=== PATIENT | male | born 1965 | race Caucasian/White ===

== ENCOUNTER 2016-12-02 12:00 | Emergency (ER) | payer BC ==
[2016-12-02 13:12] VITALS: BP 136/81
--- NOTE | 2016-12-02 13:39 | UC ---
Cardiac HPI - HPI Summary HPI Summary: 51 yo male with right sided CP x 4 days pain there all the time but worsens with deep breath and certain movements no sob no f/c has had this in the past (more severe) and has been diagnosed with pleuresy has been admitted twice with it has bee worked up for gallbladder disease and kidney stones - History of Current Complaint Chief Complaint: UCChestPain Stated Complaint: RIB PAIN Time Seen by Provider: 12/02/16 13:18 Hx Obtained From: Patient Onset/Duration: Gradual Onset, Lasting Days Timing: Constant Initial Severity: Moderate Current Severity: Moderate Pain Intensity: 5 Chest Pain Location: Diffuse, Right Anterior Character: Sharp/Stabbing Aggravating: Position, Deep Breaths Alleviating: Nothing Associated Signs & Symptoms: Positive: Chest Pain. Negative: Vision Changes, Anxiety, Recent Stress, Headaches, Numbness, Tingling, Weakness, Dizziness, SOB , Swelling, Syncope, Fever, Diaphoresis, Nausea/Vomiting, Palpitations, Cough, Hemoptysis, Back Pain, Abdominal Pain, Calf Pain/Swelling Related History: Similar Episode/Dx as - pleuresy - Allergy/Home Medications Allergies/Adverse Reactions: Allergies Allergy/AdvReac Type Severity Reaction Status Date / Time Azithromycin [From Zithromax] Allergy Intermediate Rash Verified 12/02/16 13:06 Penicillins Allergy Hives Verified 12/02/16 13:06 Sulfamethoxazole Allergy Rash Verified 12/02/16 13:06 w/Trimethoprim [From Bactrim] PMH/Surg Hx/FS Hx/Imm Hx Previously Healthy: Yes - essentially tremor Endocrine History Of: Denies: Diabetes, Thyroid Disease, Hyperthyroidism, Hypothyroidism, Dyslipidemia Cardiovascular History Of: Denies: Cardiac Disorders, Hypertension, Pacemaker/ICD, Myocardial Infarction , Congestive Heart Failure, Atrial Fibrillation, Deep Vein Thrombosis, Bleeding Disorders GI/ History Of: Reports: Gastroesophageal Reflux, Ulcer Denies: Gastrointestinal Bleed, Gall Bladder Disease, Kidney Stones, Diverticulitis, Renal Disease, Urosepsis Neurological History Of: Denies: TIA, CVA, Dementia, Seizures, Migraine Psychological History Of: Reports: Anxiety Denies: Depression, Bipolar Disorder, Schizophrenia, Post Traumatic Stress Disorder Cancer History Of: Denies: Lung Cancer, Colorectal Cancer, Breast Cancer, Prostate Cancer, Cervical Cancer - Surgical History Surgical History: None - Family History Known Family History: Negative: Cardiac Disease, Hypertension, Respiratory Disease - Social History Alcohol Use: Rare Substance Use Type: None Smoking Status (MU): Never Smoked Tobacco - Immunization History Most Recent Influenza Vaccination: Not the Season Review of Systems Constitutional: Negative Skin: Negative Eyes: Negative ENT: Negative Respiratory: Negative Cardiovascular: Chest Pain Gastrointestinal: Negative Genitourinary: Negative Motor: Negative Neurovascular: Negative Musculoskeletal: Negative Neurological: Negative Psychological: Anxious All Other Systems Reviewed And Are Negative: Yes Physical Exam Triage Information Reviewed: Yes Appearance: Well-Appearing, No Pain Distress, Well-Nourished Vital Signs: Initial Vital Signs Temp 99.6 F 12/02/16 13:03 Pulse 104 12/02/16 13:03 Resp 16 12/02/16 13:03 BP 136/81 12/02/16 13:03 Pulse Ox 100 12/02/16 13:03 Vital Signs Reviewed: Yes Eyes: Positive: Conjunctiva Clear ENT: Positive: Hearing grossly normal, Pharynx normal. Negative: Nasal congestion, Nasal drainage, Tonsillar exudate, Trismus, Muffled/hoarse voice Neck: Positive: Supple, Nontender, No Lymphadenopathy Respiratory: Positive: Chest non-tender, Lungs clear, Normal breath sounds, No respiratory distress, No accessory muscle use Cardiovascular: Positive: RRR, No Murmur. Negative: Tachycardia - pulse in 80s during my exam, Bradycardia Abdomen Description: Positive: Nontender, No Organomegaly, Soft. Negative: CVA Tenderness (R), CVA Tenderness (L), Distended, Guarding Bowel Sounds: Positive: Present Musculoskeletal: Positive: ROM Intact, No Edema Neurological Exam: Other - tremors Neurological: Positive: Muscle Tone Normal Psychological Exam: Normal Skin Exam: Normal Diagnostics - EKG Cardiac Rate: NL Cardiac Rhythm: Sinus: Normal Ectopy: None ST Segment: Normal - Clinical Impression Provider Diagnoses: pleursy Discharge - Discharge Plan Condition: Stable Disposition: HOME Prescriptions: Prednisone 60 mg PO DAILY #6 tab Patient Education Materials: Pleurisy (ED) Referrals: Bk Gonsalez MD [Primary Care Provider] - (as planned) Additional Instructions: while on prednisone take tylenol for pain
--- NOTE | 2016-12-02 14:06 | RAD ---
INDICATION: Right-sided chest pain COMPARISON: March 04, 2015 TECHNIQUE: PA and lateral dual-energy views were obtained. FINDINGS: Bones/Soft Tissues: There are no acute bony findings. Cardiomediastinal: The cardiomediastinal silhouette is normal. Lungs: There are no infiltrates. There is minimal right basilar atelectasis. There is a small granuloma in the left midlung field, unchanged. Pleura: There are no pleural effusions. Other: None IMPRESSION: NO ACTIVE DISEASE.
[2016-12-02] MEDS ORDERED: predniSONE TAB* 20 MG PO ONE (14:12)
[2016-12-02 19:24] LABS: Hematocrit 46 % (42-52); Hemoglobin 14.9 g/dl (14.0-18.0); Mean Corpuscular HGB Conc 33 g/dl (31-36); Mean Corpuscular Hemoglobin 30 pg (27-31); Mean Corpuscular Volume 91 fL (80-94); Mean Platelet Volume 9 um3 (7.4-10.4); Red Blood Count 5.04 10^6/ul (4.0-5.4); Red Cell Distribution Width 13 % (10.5-15)
[2016-12-02 20:12] LABS: Erythrocyte Sed Rate 7 mm/Hr (0-20)
== END 2016-12-02 14:37 | disposition home or self-care (01) ==
LOC: UCCORT 12:00
DX: R09.1 Pleurisy (principal); Z88.1 Allergy status to other antibiotic agents; Z88.0 Allergy status to penicillin; Z88.2 Allergy status to sulfonamides
CPT/HCPCS: 36415; 71020; 85025; 85652; 86038; 93005; 99212; G0463; J7512

== ENCOUNTER 2017-10-24 08:35 | Emergency (ER) | payer BC ==
--- NOTE | 2017-10-24 08:43 | UC ---
Upper Extremity HPI - HPI Summary HPI Summary: 52 year old male presents with right arm pain secondary to forced extension. - History of Current Complaint Stated Complaint: RIGHT ARM INJURY Time Seen by Provider: 10/24/17 08:43 Hx Obtained From: Patient Onset/Duration: Sudden Onset Severity Initially: Moderate Severity Currently: Moderate Pain Scale Used: 0-10 Numeric - 5 Character: Sharp Aggravating Factor(s): Movement, Lifting, Flexion, Extension, Abduction, Adduction Alleviating Factor(s): Rest - Allergies/Home Medications Allergies/Adverse Reactions: Allergies Allergy/AdvReac Type Severity Reaction Status Date / Time Azithromycin [From Zithromax] Allergy Intermediate Rash Verified 10/24/17 09:04 Penicillins Allergy Hives Verified 10/24/17 09:04 Sulfamethoxazole Allergy Rash Verified 10/24/17 09:04 w/Trimethoprim [From Bactrim] Home Medications: Home Medications Ibuprofen [Advil] 400 mg PO ONCE PRN 10/24/17 [History Confirmed 10/24/17] Naproxen [Naproxen EC 500 MG TAB] 500 mg PO BID 10/24/17 [History Confirmed 06/03] PMH/Surg Hx/FS Hx/Imm Hx Previously Healthy: Yes - Surgical History Surgical History: None - Family History Known Family History: Positive: None, Other Negative: Cardiac Disease, Hypertension, Respiratory Disease - Social History Alcohol Use: Rare Substance Use Type: None Smoking Status (MU): Never Smoked Tobacco - Immunization History Most Recent Influenza Vaccination: Not the 2015/2016 Season Review of Systems Constitutional: Negative Skin: Negative Eyes: Negative ENT: Negative Respiratory: Negative Cardiovascular: Negative Gastrointestinal: Negative Genitourinary: Negative Motor: Negative Neurovascular: Negative Musculoskeletal: Other: - right arm/shoulder pain Neurological: Negative Psychological: Negative All Other Systems Reviewed And Are Negative: Yes Physical Exam Triage Information Reviewed: Yes Vital Signs Reviewed: Yes Eye Exam: Normal ENT Exam: Normal Dental Exam: Normal Neck exam: Normal Neck: Positive: 1 Respiratory Exam: Normal Cardiovascular Exam: Normal Abdominal Exam: Normal Musculoskeletal: Positive: Other: - right arm/shoulder pain Neurological Exam: Normal Psychological Exam: Normal Skin Exam: Normal Upper Extremity Course/Dx - Differential Dx/Diagnosis Provider Diagnoses: right arm/shoulder pain Discharge - Discharge Plan Condition: Stable Disposition: HOME Prescriptions: Ibuprofen TAB* [Motrin TAB* 800 MG] 800 mg PO Q6H #30 tab Methocarbamol TAB* [Robaxin 500 MG TAB*] 500 mg PO TID PRN #30 tab PRN Reason: Spasms Patient Education Materials: Shoulder Sprain (ED) Forms: *Work Release Referrals: Varinder Rodriguez MD [Medical Doctor] - Bk Gonsalez MD [Primary Care Provider] - Chaim Santiago [Physical Therapist] -
[2017-10-24 09:09] VITALS: BP 120/89
--- NOTE | 2017-10-24 09:26 | RAD ---
Indication: Right shoulder pain. 3 views of the right shoulder demonstrates no fracture. No other bone or joint abnormality is identified. IMPRESSION: No fracture of the right shoulder is noted.
== END 2017-10-24 09:40 | disposition home or self-care (01) ==
LOC: UCCORT 08:35
DX: M25.511 Pain in right shoulder (principal); Z88.1 Allergy status to other antibiotic agents; Z88.0 Allergy status to penicillin; Z88.2 Allergy status to sulfonamides
CPT/HCPCS: 99213; G0463

== ENCOUNTER 2017-11-13 09:30 | Emergency (ER) | payer BC ==
--- OUTSIDE RECORDS SUMMARY | 2017-11-13 09:42 | XMS REPORT ---
:1965 External Reference #:[id number] Author Organization [facility] Address [address] [facility] [address] [place] [address] Phone [phone] Care Team Providers Name Role Phone Bk Gonsalez MD Primary Care Physician Unavailable Payers Type Date Identification Numbers Payment Provider Subscriber Commercial Policy Number: [id number] [employer] Chaim Rainey PayID: [id number] [address] [address] [place] [address] Problems Description No Information Family History Date Family Member(s) Problem(s) Comments Father Lymphoma Social History Type Date Description Comments Marital Status Single Occupation Currently Working teacher ETOH Use Rarely consumes alcohol Smoking Patient has never smoked Recreational Drug Use Denies Drug Use Daily Caffeine Consumes on average 16oz per day Exercise Type/Frequency Exercises sporadically Allergies, Adverse Reactions, Alerts Date Description Reaction Status Severity Comments 04/29/2014 Penicillins active 04/29/2014 Amoxicillin active 04/29/2014 Azithromycin active 11/07/2017 Seasonal active Medications Medication Date Status Form Strength Qnty SIG Indications Ordering Provider Paxil 00/ Active Tablets 20mg 1 by mouth Unknown 0000 every day Ibuprofen 00/ Active Tablets 200mg 3 po as Unknown 0000 needed Primidone 09/02/ Hx Tablets 250mg 60tabs 1-2 tabs 333.1 Clary Gaitan 2013 - by mouth Elisha, 10/18/ every M.D. 2017 night as directed Inderal 60 MG LA 09/02/ Hx Caps ER 60mg 90caps take 2-3 333.1 Clary Gaitan 2013 - 24HR by mouth Elisha, 09/02/ every M.D. 2013 morning as directed Inderal LA 09/02/ Hx Caps ER 60mg 90caps take 2-3 333.1 Clary oMntaño. 2013 - 24HR by mouth Elisha, 10/23/ every M.D. 2017 morning as directed Primidone 04/29/ Hx Tablets 50mg 120tab 1 - 4 tabs 333.1 Clary Montaño. 2013 - s by mouth Elisha, 09/01/ every M.D. 2013 night as directed Propranolol HCL 01/28/ Hx Tablets 10mg 240tab 1-2 tabs Clary Montaño. 2013 s by mouth Elisha, 2-4 x per M.D. 2013 day as directed Methocarbamol / Hx Tablets 500mg 60tabs 1 by mouth Unknown 0000 - three 11/06/ times a 2017 day as needed Medications Administered in Office Medication Date Status Form Strength Qnty SIG Indications Ordering Provider Celestone 3 mg Administered Injection Varinder Montaño and 3mg 018 MD Jennifer Vital Signs Date Vital Result Comment 11/07/2017 Height 74 inches 6'2" Heart Rate 87 /min Respiratory Rate 16 /min Pain Level 3 O2 % BldC Oximetry 93 % 10/24/2017 Height 74 inches 6'2" Weight 225.00 lb Heart Rate 76 /min BP Systolic Sitting 142 mmHg BP Diastolic Sitting 80 mmHg Respiratory Rate 16 /min Pain Level 7 BMI (Body Mass Index) 28.9 kg/m2 09/02/2014 Height 74 inches 6'2" Weight 215.00 lb Heart Rate 73 /min BP Systolic Sitting 112 mmHg BP Diastolic Sitting 88 mmHg Respiratory Rate 14 /min BMI (Body Mass Index) 27.6 kg/m2 04/29/2014 Weight 218.00 lb Heart Rate 80 /min BP Systolic Sitting 126 mmHg BP Diastolic Sitting 84 mmHg Results Test Date Test Result H/L Range Note Urine Metanephrines 24HR 02/01/2014 Urine Metanephrine 116 mcg/24h 1 Urine Normetanephrine 243 mcg/24h 2 Urine Total Metanephrines 359 mcg/24h 3 Urine Collection Duration 24 h Urine Volume 850 mL 4 Laboratory test finding 01/30/2014 Free T4 0.88 ng/mL 0.61-1.12 Total T3 1.04 ng/mL 0.87-1.78 Cortisol 12.88 g/dL 5 1 -- REFERENCE VALUE -- 44-261 (Normotensive) <400 (Hypertensive) 2 -- REFERENCE VALUE -- 119-451 (Normotensive) <900 (Hypertensive) 3 -- REFERENCE VALUE -- 211-646 (Normotensive) <1300 (Hypertensive) 4 Test Performed by: [address] [id number] [employer] Station Operator: Jaciel Vidal III, M.D. 5 AM 8.7-22.4 PM <10 Procedures Date CPT Code Description Status 10/24/2017 76781 Inject/Drain Joint/Bursa Major Completed Encounters Type Date Location Provider CPT E/M Dx Office Visit 09/02/2014 [place]/Radha Tello, [address] 333.1 11:00a [facility]rolog[facility] [employer] M.DKatie Office Visit 04/29/2014 [place]/Radha Tello, [address] 333.1 10:00a Neurologic [facility] [employer] M.DKatie Office Visit 01/28/2014 [place]/Radha Tello, [id number] 333.1 2:00p Neurologic Serv Of [facility] M.DKatie 300.02 Plan of Care Future Appointment(s):12/19/2017 3:30 pm - Varinder Rodriguez MD at [facility] At [facility]gn[facility]kr45/22/2018 - LIZ [id number] Sprain of right rotator cuff capsule, subsequent encounterFollow up:Follow up: 6 weeks
--- OUTSIDE RECORDS SUMMARY | 2017-11-13 09:43 | XMS REPORT ---
:1965 External Reference #:[id number] Author Organization [employer] Address [address] [place] [address] Phone [phone] Care Team Providers Name Role Phone Bk Gonsalez MD Primary Care Physician Unavailable Payers Type Date Identification Numbers Payment Provider Subscriber Commercial Policy Number: [id number] Titaus Cali Rainey PayID: [id number] [address] [place] [address] Problems Date Description Provider Status Onset: 10/08/2005 Hyperlipidemia Bk Gonsalez MD Active Onset: 10/08/2005 Heart murmur Bk Gonsalez MD Active Onset: 10/08/2005 Headache Bk Gonsalez MD Active Onset: 10/08/2005 Pure hypercholesterolemia Bk Gonsalez MD Active Onset: 10/08/2005 Gastroesophageal reflux disease Bk Gonsalez MD Active Onset: 10/14/2011 Acute upper respiratory infection Casimiro Washington MD Active Onset: 10/26/2013 Acute sinusitis Casimiro Washington MD Active Family History Date Family Member(s) Problem(s) Comments General Positive For Heart Diease,Cancer,DM Father due to Cancer () Mother Fibromyalgia Social History Type Date Description Comments Marital Status single Cigarette Use Never Smoked Cigarettes ETOH Use Occasionally consumes alcohol Recreational Drug Use Denies Drug Use Smoking Patient has never smoked Allergies, Adverse Reactions, Alerts Date Description Reaction Status Severity Comments 10/25/2005 PCN active 10/25/2005 Amoxicillin active 11/09/2012 Azithromycin active 07/19/2016 Bactrim active Medications Medication Date Status Form Strength Qnty SIG Indications Ordering Provider Doxycycline 07/18 Active Capsules 100mg 30cap 1 by mouth J20.9 Bk FKatie Hyclate /2016 s twice a day MD Wallace No Work 07/18 Active out of work Bk FKatie until 07/21 MD Wallace 2016 Tussionex 07/18 Active Suer 10-8mg/5M 115ml 1 TSP Every Bk . Pennkinetic /2016 L 12 Hours as MD Wallace Extended Needed Release Naproxen 12/20 Active Tablets 500mg 180ta 1 by mouth R09.1 Bk F. /2016 bs twice a day MD Wallace as needed Paxil 03/02 Active Tablets 20mg 30tab 1 by mouth F41.1 Bk F. /2015 s every day MD Wallace Metamucil 08/11 Active Powder 55.46% tid K58.0 Bk F. [facility] /2014 MD Wallace Fiber Loratadine Active Tablets 10mg 1 by mouth Unknown Allergy Relief /0000 Dispers every day as needed Hydrocodone 07/18 Hx Solution 60-4-5mg/ 480ml 5 milliliters 465.9 [facility] Bitartrate/Chl 5ML every 6 hour MD Wallace orpheniramine - as needed Maleate/Pse 07/18 Levofloxacin 03/01 Hx Tablets 500mg 10tab 1 by mouth J20.9 Bk F. /2016 s every day MD Wallace - 06/15 Gabapentin 12/20 Hx Capsules 100mg 90cap 1 by mouth 3 R09.1 Bk F. /2016 s x daily MD Wallace - 06/15 Tramadol HCL 12/06 Hx Tablets 50mg 30tab 1 by mouth R09.1 Bk F. /2016 s every 6 hours MD Wallace - as needed 12/13 pain Levaquin 07/19 Hx Tablets 500mg 7tabs 1 PO Q Day J01.90 Bk F. /2015 MD Wallace - 07/26 Bactrim DS 07/09 Hx Tablets 800-160mg 20tab 1 by mouth J20.2 Elyn /2015 s twice a day MD Felix - 07/19 Zoloft 10/06 Hx Tablets 25mg 30tab 1 by mouth F41.1 Bk F. /2014 s every night MD Wallace - at bedtime 03/02 Bactrim DS 07/31 Hx Tablets 800-160mg 20tab 1 by mouth J20.2 Sybil /2014 s twice a day Svetlana Gonsalez M.D. 08/11 Cheratussin ac 07/31 Hx Syrup 100-10mg/ 120ml 1 teaspoon J20.2 Sybil 5ML every 4 hour Wallace - as needed M.D. 10/06 cough Cheratussin ac 03/04 Hx Syrup 100-10mg/ 120ml 1 teaspoon Bk F. /2014 5ML every 4 hour MD Wallace - as needed 07/31 cough Hydrocodone 03/03 Hx Solution 60-4-5mg/ 480ml 5 milliliters 465.9 Bk F. Bitartrate/Chl 5ML every 6 hour MD Wallace orpheniramine - as needed Maleate/Pse 03/04 Robitussin 02/25 Hx Syrup 100mg/5ML 118ml 1 teaspoon by 465.9 Bk F. Chest mouth every MD Wallace Congestion - 6hr as needed 03/03 Bactrim DS 02/25 Hx Tablets 800-160mg 20tab 1 by mouth 465.9 Bk F. /2014 s twice a day MD Wallace - 07/31 Work Note 02/25 Hx patient off Bk F. /2014 work from MD Wallace - 03/03/15 till 03/0203/05/15 Bactrim DS 10/26 Hx Tablets 800-160mg 14tab 1 po bid 466.0 Elyn lenka Washington MD - 11/21 Doxycycline 06/[address] 100mg 20cap 1 po bid Bk F. /2012 Part lenka Gonsalez MD - 10/26 Doxycycline 06/19 Hx Capsules 100mg 20cap 1 po bid 466.0 Bk F. Hyclate lenka Gonsalez MD - 10/26 Robitussin 06/19 Hx Liquid 6.25-2.5- 118ml as Directed 466.0 Bk F. Night Time /2012 160mg/5ML Per Bottle MD Wallace Cough Cold - & Flu 10/26 Bactrim DS 11/09 Hx Tablets 800-160mg 14tab 1 po bid 466.0 Sybil /2012 Svetlana Antunez M.D. 05/29 Robitussin 11/09 Hx Syrup 100mg/5ML 8Oz 1 tsp po q 4 466.0 Sybil With Codeine /2012 hours prSvetlana Hernandez M.D. 05/29 Azithromycin 10/03 Hx Tablets 250mg 5tabs 2 po today, 1 466.0 Bk F. /2011 po day 2 thru MD Wallace - 5 11/09 Robitussin 10/03 Hx Liquid 16Oz one 466.0 Bk F. With Codeine /2011 tablespoon po MD Wallace - qhs prn cough 11/09 Azithromycin 06/26 Hx Tablets 250mg 5tabs 2 po today, 1 466.0 Bk F. /2011 po day 2 thru MD Wallace - 5 10/03 Robitussin 06/26 Hx Tape 16Oz 1 tbspn po 466.0 Bk F. With Codeine qhs prn MD Wallace - 06/26 Robitussin 06/26 Hx Liquid 10-200mg/ 237ml 466.0 Bk F. Peak Cold /2011 5ML MD Wallace Cough+ Chest - Congestion DM 10/03 Max Strenght /2011 Azithromycin 04/25 Hx Tablets 250mg 5tabs 2 po today, 1 466.0 Bk F. /2011 po day 2 thru MD Wallace - 5 06/26 Gabapentin 04/04 Hx Capsules 100mg 65cap 1 PO Q Day 333.1 Bk F. /2011 s For Week One MD Wallace - 2 PO Q Day 05/29 For Week 2 PO Q Day For Week 3 Metamucil 12/14 Hx Powder 28.3% 578.1 Bk F. /2011 MD Wallace - 03/02 Erythromycin 10/14 Hx Tablets 500mg 20tab 1 po bid 466.0 Elyn s MD Felix - 12/14 Ultram 07/12 Hx Tablets 50mg 120ta one every 6 784.0 Bk F. /2010 bs hours as MD Wallace - needed for 03/02 Work Note 07/12 Hx cali will be Sybil off work Petr Gonsalez, - 2014 Samir 03/02 Cali Pflug 05/07 Hx patient was El seen at this MD Felix - office 12/1205/04/11 bronchitis and ear infection. Robitussin 05/04 Hx Liquid 16Oz one 466.0 Bk F. With Codeine tablespoon po MD Wallace - [facility] prn cough 07/12 Robitussin 11/24 Hx Liquid 16Oz one 466.0 Bk F. With Codeine tablespoon po MD Wallace - [facility] prn cough 05/04 Erythromycin 11/24 Hx Tablets 500mg 20tab 1 po bid 466.0 Bk F. Base lenka Gonsalez MD - 07/12 Erythromycin 02/[address] 333mg 20tab tab 1 po bid Elyn s MD Felix - 05/12 Zyrtec Allergy 02/02 Hx Tablets 10mg 30tab 1 po qd lenka Washington MD - 05/12 Work Note 02/02 Hx cali will be off work MD Felix - until saturday 05/1202/09/10 Erythromycin 01/[address] 333mg 20tab 1 po bid with 466.0 Bk F. s jamie Gonsalez MD - 02/02 Work Note 01/05 Hx cali will be Bk F. /2009 off work for MD Wallace - 3 days 05/12 Sumatriptan 12/29 Hx Tablets 25mg 10tab 1 po q 6 hr 346.90 Bk F. Succinate s MD Wallace - 05/12 Tramadol HCL 12/29 Hx Tablets 50mg 25tab 1 po q 6 346.90 Bk F. /2009 s hours pain MD Wallace - prn 05/12 Work Note 12/29 Hx cali will be Bk F. /2009 off work for MD Wallace - 2 days 05/12 Erythromycin 10/[address] 333mg 20tab 1 po bid with 466.00 Bk F. Base s jamie Gonsalez MD - 11/12 Cipro 12/19 Hx Tablets 500mg 14tab 1 po bid 466.00 Sybil /2008 Svetlana Antunez M.D. 10/06 Robitussin 12/19 Hx Liquid 4Oz 1-2 teaspoon 466.00 Sybil With Codeine po q 4-6 hrs Svetlana Gonsalez for cough Samir 10/06 Fexofenadine 12/19 Hx Tablets 60mg 60tab 1 po bid 466.00 Sybil HCL Svetlana Antunez M.D. 11/12 Erythromycin 12/19 Hx Tablets 500mg 14tab 1 po bid 466.00 Sybil Base Svetlana Antunez M.D. 10/06 Medical Excuse 12/19 Hx the above is 466.00 excused from Svetlana Gonsalez work and Samir 10/06 school december 23, 2008 Zithromax 11/28 Hx Tablets 250mg 6tabs 2 po day 1, 1 Elyn po qd x days MD Felix - 2-5 10/06 Paxil 09/03 Hx Tablets 20mg 90tab 1 by mouth F41.1 s every day Svetlana Gonsalez M.D. 10/06 Erthromycin 01/21 Hx Tablets 500mg 40tab 1 po qid 382.9 Bk F. /2007 lenka Gonsalez MD - 09/03 May Return To 10/13 Hx Patient May Return To MD Felix - Work With No 09/03 Pce 11/02 Hx Tablets 500mg 28tab one po bid x Bk F. s 14days MD Wallace - 11/03 Tamiflu 11/01 Hx Capsules 75mg 14cap 1 po bid 487.1 lenka Washington MD - 10/13 Anucort-HC 11/01 Hx Suppositor 25mg 20uni 1 pr after BM 487.1 ts or prn pain Svetlana Gonsalez M.D. 11/05 Ultracet 11/01 Hx Tablets 325mg;37. 30tab one po q 6 487.1 5 mg s hr.prn Svetlana Gonsalez M.D. 11/05 Pce 09/21 Hx Tablets 500mg 20tab one po bid x 490 Bk F. /2005 s 10days MD Wallace - 11/04 Meclizine 08/30 Hx Tablets 25mg 30tab 1 po tid prn 780.40 Elyn /2006 s MD Felix - 10/13 Ultram 08/30 Hx Tablets 50mg 30tab one every 6 s hours as MD Felix - needed for 10/13 Pce 10/26 Hx Tablets 500mg 20tab One PO bid X 490 Bk F. s 10Days MD Walalce - 05/09 Prilosec 10/25 Hx Capsules 40mg 100ca 1 PO qd prn Bk F. ps MD Wallace - 10/26 Flonase 10/25 Hx Suspension 50mcg/Spr 1unit 1 [place] To Bk F. ay s Each Nare qd MD Wallace - 05/09 Paxil 10/25 Hx Tablets 20mg 100ta 1 po qd bs MD Felix - 09/03 Kiya 10/25 Hx Tablets 60mg 60tab 1 PO bid Bk F. s MD Wallace - 05/09 Ultram 10/25 Hx Tablets 50mg 30tab 1-2 tabs po q Bk F. s 6 hrs prn MD Wallace - 05/09 Viagra 10/25 Hx Tablets 100mg 6tabs One PO prn AD Bk F. MD Wallace - 05/09 Imitrex 10/25 Hx Tablets 100mg 6tabs 1 po qd prn Bk . ad MD Wallace - 05/09 Medications Administered in Office Medication Date Status Form Strength Qnty SIG Indications Ordering Provider PPD Administered Injection Bk Brizuela 9 MD Wallace Immunizations CPT Code Status Date Vaccine Lot # [id number] Given 11/12/2009 Tetanus Shot [id number] Given 10/17/1997 DT Immunization DIP/Tet (History Only) Vital Signs Date Vital Result Comment 10/18/2017 BP Systolic 142 mmHg BP Diastolic 78 mmHg Respiratory Rate 18 /min Height 74 inches 6'2" Weight 226.00 lb BMI (Body Mass Index) 29.0 kg/m2 07/18/2017 BP Systolic 122 mmHg BP Diastolic 60 mmHg Body Temperature 99.4 F 06/15/2017 BP Systolic 128 mmHg BP Diastolic 68 mmHg 03/01/2017 BP Systolic 123 mmHg BP Diastolic 78 mmHg Body Temperature 98.6 F 12/20/2016 BP Systolic 122 mmHg BP Diastolic 70 mmHg 12/13/2016 BP Systolic 144 mmHg BP Diastolic 92 mmHg 12/06/2016 BP Systolic 140 mmHg BP Diastolic 80 mmHg 07/26/2016 BP Systolic 138 mmHg BP Diastolic 72 mmHg 07/19/2016 BP Systolic 122 mmHg BP Diastolic 70 mmHg Body Temperature 98.5 F 07/09/2016 BP Systolic 140 mmHg BP Diastolic 90 mmHg Body Temperature 98.7 F 05/18/2016 BP Systolic 118 mmHg BP Diastolic 70 mmHg 05/05/2016 BP Systolic 128 mmHg BP Diastolic 70 mmHg Height 74 inches 6'2" Weight 227.00 lb BMI (Body Mass Index) 29.1 kg/m2 03/02/2016 BP Systolic 128 mmHg BP Diastolic 70 mmHg Height 74 inches 6'2" Weight 230.00 lb BMI (Body Mass Index) 29.5 kg/m2 10/06/2015 BP Systolic 122 mmHg BP Diastolic 68 mmHg Height 74 inches 6'2" Weight 228.00 lb BMI (Body Mass Index) 29.3 kg/m2 08/11/2015 BP Systolic 132 mmHg BP Diastolic 74 mmHg 07/31/2015 BP Systolic 138 mmHg BP Diastolic 72 mmHg Body Temperature 98.2 F 02/25/2015 BP Systolic 138 mmHg BP Diastolic 78 mmHg Body Temperature 98.8 F Height 74 inches 6'2" 02/11/2015 BP Systolic 138 mmHg BP Diastolic 72 mmHg Height 74 inches 6'2" Weight 222.00 lb BMI (Body Mass Index) 28.5 kg/m2 01/07/2015 BP Systolic 128 mmHg BP Diastolic 60 mmHg 07/30/2014 BP Systolic 130 mmHg BP Diastolic 72 mmHg Height 74 inches 6'2" Weight 226.00 lb BMI (Body Mass Index) 29.0 kg/m2 04/24/2014 BP Systolic 128 mmHg BP Diastolic 60 mmHg 12/12/2013 BP Systolic 124 mmHg BP Diastolic 78 mmHg Height 74 inches 6'2" Weight 219.00 lb BMI (Body Mass Index) 28.1 kg/m2 10/26/2013 BP Systolic 132 mmHg BP Diastolic 78 mmHg Body Temperature 98.0 F Height 74 inches 6'2" 06/19/2013 BP Systolic 140 mmHg BP Diastolic 72 mmHg Body Temperature 98.2 F Height 74 inches 6'2" 05/29/2013 BP Systolic 128 mmHg BP Diastolic 72 mmHg 11/09/2012 BP Systolic 118 mmHg BP Diastolic 68 mmHg Body Temperature 96.7 F Height 74 inches 6'2" 10/03/2012 BP Systolic 118 mmHg BP Diastolic 70 mmHg Body Temperature 96.1 F Height 74 inches 6'2" 06/26/2012 BP Systolic 110 mmHg BP Diastolic 42 mmHg Body Temperature 98.1 F Height 74 inches 6'2" 04/25/2012 BP Systolic 120 mmHg BP Diastolic 80 mmHg Body Temperature 99.9 F 12/14/2011 BP Systolic 118 mmHg BP Diastolic 76 mmHg Height 74 inches 6'2" 10/14/2011 BP Systolic 118 mmHg BP Diastolic 78 mmHg Body Temperature 97.8 F Height 74 inches 6'2" 07/12/2011 BP Systolic 130 mmHg BP Diastolic 70 mmHg Body Temperature 97.9 F Height 74 inches 6'2" Weight 212.00 lb BMI (Body Mass Index) 27.2 kg/m2 05/04/2011 BP Systolic 138 mmHg BP Diastolic 78 mmHg Body Temperature 98.3 F Height 74 inches 6'2" Weight 215.00 lb BMI (Body Mass Index) 27.6 kg/m2 11/24/2010 BP Systolic 124 mmHg BP Diastolic 72 mmHg Body Temperature 99.4 F Height 74 inches 6'2" Weight 213.00 lb BMI (Body Mass Index) 27.3 kg/m2 09/22/2010 BP Systolic 120 mmHg BP Diastolic 70 mmHg Body Temperature 98.5 F 05/12/2010 BP Systolic 114 mmHg BP Diastolic 70 mmHg Weight 216.00 lb 02/02/2010 BP Systolic 127 mmHg BP Diastolic 84 mmHg Body Temperature 96.5 F Weight 208.00 lb 01/05/2010 BP Systolic 132 mmHg BP Diastolic 86 mmHg Body Temperature 98.4 F 12/29/2009 BP Systolic 108 mmHg BP Diastolic 58 mmHg Height 74 inches 6'2" 11/12/2009 BP Systolic 110 mmHg BP Diastolic 60 mmHg Height 74 inches 6'2" Weight 219.00 lb BMI (Body Mass Index) 28.1 kg/m2 10/06/2009 BP Systolic 110 mmHg BP Diastolic 72 mmHg 12/19/2008 BP Systolic 100 mmHg BP Diastolic 70 mmHg Body Temperature 97.9 F Height 74 inches 6'2" 11/28/2008 BP Systolic 140 mmHg BP Diastolic 60 mmHg Body Temperature 98.8 F Height 74 inches 6'2" 11/18/2008 BP Systolic 12 mmHg BP Diastolic 60 mmHg Height 74 inches 6'2" Weight 214.00 lb BMI (Body Mass Index) 27.5 kg/m2 09/03/2008 BP Systolic 130 mmHg BP Diastolic 76 mmHg Height 74 inches 6'2" Weight 213.00 lb BMI (Body Mass Index) 27.3 kg/m2 01/22/2008 BP Systolic 108 mmHg BP Diastolic 66 mmHg Height 74 inches 6'2" Weight 209.00 lb BMI (Body Mass Index) 26.8 kg/m2 10/13/2007 BP Systolic 126 mmHg BP Diastolic 80 mmHg Height 74 inches 6'2" Weight 208.00 lb BMI (Body Mass Index) 26.7 kg/m2 08/17/2007 BP Systolic 118 mmHg BP Diastolic 74 mmHg Height 74 inches 6'2" Weight 213.00 lb BMI (Body Mass Index) 27.3 kg/m2 11/09/2006 BP Systolic 130 mmHg BP Diastolic 62 mmHg Height 74 inches 6'2" Weight 208.00 lb BMI (Body Mass Index) 26.7 kg/m2 11/02/2006 BP Systolic 130 mmHg BP Diastolic 80 mmHg Height 74 inches 6'2" 11/01/2006 Body Temperature 99.9 F Height 74 inches 6'2" 11/01/2006 BP Systolic 124 mmHg BP Diastolic 78 mmHg Height 74 inches 6'2" Weight 214.00 lb BMI (Body Mass Index) 27.5 kg/m2 09/21/2006 BP Systolic 120 mmHg BP Diastolic 60 mmHg Body Temperature 96.8 F Height 74 inches 6'2" 08/30/2006 BP Systolic 118 mmHg BP Diastolic 72 mmHg Body Temperature 97.3 F Height 74 inches 6'2" 05/09/2006 BP Systolic 116 mmHg BP Diastolic 68 mmHg Height 74 inches 6'2" Weight 208.00 lb BMI (Body Mass Index) 26.7 kg/m2 10/26/2005 BP Systolic 128 mmHg BP Diastolic 76 mmHg Height 74 inches 6'2" Weight 203.00 lb BMI (Body Mass Index) 26.1 kg/m2 Results Test Date Test Result H/L Range Note Order 12/22/2016 MRI L Spine W/O Contrast <pending> CBC Auto Diff 12/02/2016 White Blood Count 6.0 10^3/uL 3.5-10.8 Red Blood Count 5.04 10^6/uL 4.0-5.4 Hemoglobin 14.9 g/dL 14.0-18.0 Hematocrit 46 % 42-52 Mean Corpuscular Volume 91 fL 80-94 Mean Corpuscular Hemoglobin 30 pg 27-31 Mean Corpuscular HGB Conc 33 g/dL 31-36 Red Cell Distribution Width 13 % 10.5-15 Platelet Count 272 10^3/uL 150-450 Mean Platelet Volume 9 um3 7.4-10.4 Abs Neutrophils 4.1 10^3/uL 1.5-7.7 Abs Lymphocytes 1.2 10^3/uL 1.0-4.8 Abs Monocytes 0.4 10^3/uL 0-0.8 Abs Eosinophils 0.1 10^3/uL 0-0.6 Abs Basophils 0.1 10^3/uL 0-0.2 Abs Nucleated RBC 0 10^3/uL Granulocyte % 68.9 % 38-83 Lymphocyte % 20.1 % Low 25-47 Monocyte % 7.5 % 1-9 Eosinophil % 1.3 % 0-6 Basophil % 2.2 % High 0-2 Nucleated Red Blood Cells % 0 Laboratory test finding 12/02/2016 Erythrocyte Sed Rate 7 mm/Hr 0-20 Anti Nuclear Antibody 0.1 U 1 BMP W/O Egfr 01/24/2015 Sodium 140 mmol/L 135-146 2 Potassium 4.6 mmol/L 3.5-5.3 2 Chloride 106 mmol/L 98-110 2 Carbon Dioxide 22 mmol/L 19-30 2 Calcium 9.4 mg/dL 8.6-10.3 2 Glucose 99 mg/dL 65-99 2, 3 Urea Nitrogen 17 mg/dL 7-25 2 Creatinine 1.11 mg/dL 0.60-1.35 2 BUN/Creatinine Ratio 15.4 6-22 2 CBC W/ Diff & PLT 01/24/2015 WBC 3.9 thous/L 3.8-10.8 2 RBC 4.95 mill/L 4.20-5.80 2 Hemoglobin 15.1 g/dL 13.2-17.1 2 Hematocrit 45.8 % 38.5-50.0 2 MCV 92.7 FL 80.0-100.0 2 MCH 30.5 pg 27.0-33.0 2 MCHC 32.9 g/dL 32.0-36.0 2 RDW 13.6 % 11.0-15.0 2 Platelet Count 298 thous/L 140-400 2 Platelet Sufficiency PENDING 2 Neutrophils,Absolute 2450 cells/L 6305-1804 2 Bands,Absolute PENDING 2 Metamyelocytes,Absolute PENDING 2 Myelocytes,Absolute PENDING 2 Promyelocytes,Absolute PENDING 2 Lymphocytes,Absolute 1170 cells/L 850-3900 2 Monocytes,Absolute 280 cells/L 200-950 2 Eosinophils,Absolute 30 cells/L 15-500 2 Basophils,Absolute 20 cells/L 0-200 2 Blast Cells,Absolute PENDING 2 Nucleated RBC,Absolute PENDING 2 Total Neutrophils,% 62 % Not Established 2 Bands,% PENDING 2 Metamyelocytes,% PENDING 2 Myelocytes,% PENDING 2 Promyelocytes,% PENDING 2 Total Lymphocytes,% 30 % Not Established 2 Monocytes,% 7 % Not Established 2 Eosinophils,% 1 % Not Established 2 Basophils,% 1 % Not Established 2 Blasts,% PENDING 2 Nucleated RBC PENDING 2 RBC Morphology PENDING 2 Anisocytosis PENDING 2 Poikilocytosis PENDING 2 Microcytosis PENDING 2 Macrocytosis PENDING 2 Polychromasia PENDING 2 Hypochromasia PENDING 2 Target Cells PENDING 2 Basophilic Stippling PENDING 2 Comment PENDING 2 Lipid Panel 01/24/2015 Cholesterol 183 mg/dL 125-200 2 HDL Cholesterol 40 mg/dL > Or=40 2 Cholesterol/HDL Ratio 4.6 < Or=5.0 2 LDL Chol,Calculated 114 mg/dL <130 2, 4 Triglycerides 143 mg/dL <150 2 Non-HDL Cholesterol 143 mg/dL 2, 5 TSH & T4,Free 01/24/2015 TSH 0.92 mIU/L 0.40-4.50 2 T4,Free 1.0 ng/dL 0.8-1.8 2 Laboratory test finding 01/24/2015 PSA,Total 0.3 NG/ML 0.0-4.0 2, 6 Comp Metabolic Panel 12/06/2013 Sodium 140 mmol/L 135-146 2 Potassium 4.2 mmol/L 3.5-5.3 2 Chloride 103 mmol/L 98-110 2 Carbon Dioxide 27 mmol/L 19-30 2 Calcium 9.7 mg/dL 8.6-10.3 2 Alkaline Phosphatase 53 U/L 40-115 2 Ast 16 U/L 10-40 2 Alt 24 U/L 9-46 2 Bilirubin,Total 0.4 mg/dL 0.2-1.2 2 Glucose 85 mg/dL 65-99 2, 7 Urea Nitrogen 16 mg/dL 7-25 2 Creatinine 1.14 mg/dL 0.60-1.35 2 BUN/Creatinine Ratio 13.6 6-22 2 Protein,Total 7.4 g/dL 6.1-8.1 2 Albumin 4.8 g/dL 3.6-5.1 2 Globulin,Calculated 2.6 g/dL 1.9-3.7 2 A/G Ratio 1.9 1.0-2.5 2 Egfr Non-Afr. Turkmen 76 ML/MIN/1.73M2 > Or=60 2 Egfr 88 ML/MIN/1.73M2 > Or=60 2 CBC W/ Diff & PLT 12/06/2013 WBC 4.4 thous/L 3.8-10.8 2 RBC 4.89 mill/L 4.20-5.80 2 Hemoglobin 14.7 g/dL 13.2-17.1 2 Hematocrit 44.3 % 38.5-50.0 2 MCV 90.7 FL 80.0-100.0 2 MCH 30.1 pg 27.0-33.0 2 MCHC 33.2 g/dL 32.0-36.0 2 RDW 12.8 % 11.0-15.0 2 Platelet Count 336 thous/L 140-400 2 Neutrophils,Absolute 2640 cells/L 9360-9821 2 Lymphocytes,Absolute 1330 cells/L 850-3900 2 Monocytes,Absolute 380 cells/L 200-950 2 Eosinophils,Absolute 40 cells/L 15-500 2 Basophils,Absolute 20 cells/L 0-200 2 Total Neutrophils,% 60 % Not Established 2 Total Lymphocytes,% 30 % Not Established 2 Monocytes,% 9 % Not Established 2 Eosinophils,% 1 % Not Established 2 Basophils,% 0 % Not Established 2 TSH & T4,Free 12/06/2013 TSH 0.76 mIU/L 0.40-4.50 2 T4,Free 1.1 ng/dL 0.8-1.8 2 Laboratory test finding 12/06/2013 PSA,Total 0.4 NG/ML 0.0-4.0 2, 8 Lipid Panel 12/06/2013 Cholesterol 199 mg/dL 125-200 2 HDL Cholesterol 41 mg/dL > Or=40 2 Cholesterol/HDL Ratio 4.9 < Or=5.0 2 LDL Chol,Calculated 114 mg/dL <130 2, 9 Triglycerides 221 mg/dL High <150 2 Non-HDL Cholesterol 157 mg/dL 2, 10 Comprehensive Metabolic Panel 12/23/2011 Glucose 94 mg/dL 76-115 BUN 14 mg/dL 5-23 Creatinine 1.0 mg/dL 0.5-1.4 Glom Filtration Rate, Estimate >60 mL/min >60 If >60 mL/min >60 11 BUN/Creat 14.0 ratio Sodium 143 mmol/L 136-145 Potassium 4.3 mmol/L 3.5-5.1 Chloride 107 mmol/L 98-107 Carbon Dioxide 30 mEq/L High 18-29 Anion Gap 10 mEq/L 8-16 Calcium 9.0 mg/dL 8.5-10.1 Total Protein 7.1 g/dL 6.3-8.0 Albumin 4.2 g/dL 3.5-5.0 Globulin 2.9 g/dL 1.9-4.3 Alb/Glob 1.4 ratio Bilirubin,Total 0.5 mg/dL 0.2-1.2 Sgot/Ast 8 U/L Low 16-40 SGPT/Alt 26 U/L Low 30-65 Alkaline Phosphatase 44 U/L Low 50-136 LDL Cholesterol Profile 12/23/2011 Cholesterol 148 mg/dL 120-200 Triglycerides 70 mg/dL 16-231 HDL Cholesterol 39 mg/dL 29-83 LDL-Cholesterol 95 mg/dL 62-185 Laboratory test finding 12/23/2011 Bilirubin,Direct 0.1 mg/dL 0.1-0.4 Thyroid Stim Hormone 1.14 uIU/mL 0.49-4.67 Free T4 0.90 ng/dL 0.71-1.85 CBS W/Automated Diff 12/23/2011 White Blood Count 3.7 K/uL 3.4-10.5 Red Blood Count 4.80 M/uL 4.20-5.80 Hemoglobin 14.5 gm/dL 12.8-17.0 Hematocrit 45.1 % 38.0-48.0 Mean Cell Volume 94.0 fl 80.0-96.0 Mean Corpuscular HGB 30.2 pg 27.0-33.0 Mean Corpuscular HGB Conc 32.2 g/dL 31.7-36.0 Platelet Count 292 K/uL 150-400 Red Cell Distri Width SD 43.6 fl 36-51 Red Cell Distri Width %CV 13.0 % 11.6-15.8 Mean Platelet Volume 11.0 fL High 6.6-10.6 Neut% 54.2 % 33.0-73.0 Lymph % 33.8 % 17.0-56.0 [place] % 9.9 % 0.0-10.0 Eo% 1.6 % 0.0-5.0 Bas% 0.5 % 0.1-1.0 Neut# 2.02 K/uL 1.8-7.0 Lymph # 1.26 K/uL 1.2-4.0 [place] # 0.37 K/uL 0.0-0.6 Eos # 0.06 K/uL 0.0-0.5 Baso # 0.02 K/uL Low 0.1-0.2 Comp Metabolic Panel 10/29/2009 Sodium 142 mmol/L 135-146 2 Potassium 4.3 mmol/L 3.5-5.3 2 Chloride 106 mmol/L 98-110 2 Carbon Dioxide 26 mmol/L 21-33 2 Calcium 9.5 mg/dL 8.6-10.2 2 Alkaline Phosphatase 56 U/L 40-115 2 Ast 13 U/L 10-40 2 Alt 21 U/L 9-60 2 Bilirubin,Total 0.5 mg/dL 0.2-1.2 2 Glucose 102 mg/dL High 65-99 2, 12 Urea Nitrogen 18 mg/dL 7-25 2 Creatinine 1.14 mg/dL 0.78-1.34 2 BUN/Creatinine Ratio 15.9 6-22 2 Protein,Total 7.3 g/dL 6.2-8.3 2 Albumin 4.7 g/dL 3.6-5.1 2 Globulin,Calculated 2.6 g/dL 2.1-3.7 2 A/G Ratio 1.9 1.0-2.1 2 Egfr Non-Afr. Turkmen >60 ML/MIN/1.73M2 > Or=60 2 Egfr >60 ML/MIN/1.73M2 > Or=60 2 CBC W/ Diff & PLT 10/29/2009 WBC 3.8 thous/L 3.8-10.8 2 RBC 4.69 mill/L 4.20-5.80 2 Hemoglobin 14.9 g/dL 13.2-17.1 2 Hematocrit 43.6 % 38.5-50.0 2 MCV 93.0 FL 80.0-100.0 2 MCH 31.7 pg 27.0-33.0 2 MCHC 34.1 g/dL 32.0-36.0 2 RDW 13.5 % 11.0-15.0 2 Platelet Count 235 thous/L 140-400 2 Platelet Sufficiency NORMAL Normal 2 Neutrophils,Absolute 2190 cells/L 9029-0746 2 Bands,Absolute DNR cells/L 0-750 2 Metamyelocytes,Absolute DNR cells/L 0 2 Myelocytes,Absolute DNR cells/L 0 2 Promyelocytes,Absolute DNR cells/L 0 2 Lymphocytes,Absolute 1190 cells/L 850-3900 2 Monocytes,Absolute 360 cells/L 200-950 2 Eosinophils,Absolute 50 cells/L 15-500 2 Basophils,Absolute 30 cells/L 0-200 2 Blast Cells,Absolute DNR cells/L 0 2 Nucleated RBC,Absolute DNR cells/L 0 2 Total Neutrophils,% 58 % 38-80 2 Bands,% DNR % 0-10 2 Metamyelocytes,% DNR % 2 Myelocytes,% DNR % 2 Promyelocytes,% DNR % 2 Total Lymphocytes,% 31 % 15-49 2 Monocytes,% 9 % 0-13 2 Eosinophils,% 1 % 0-8 2 Basophils,% 1 % 0-2 2 Blasts,% DNR % 2 Nucleated RBC DNR /100WBC 0 2 RBC Morphology NORMAL 2 Anisocytosis DNR 2 Poikilocytosis DNR 2 Microcytosis DNR 2 Macrocytosis DNR 2 Polychromasia DNR 2 Hypochromasia DNR 2 Target Cells DNR 2 Basophilic Stippling DNR 2 Comment DNR 2 TSH & T4,Free 10/29/2009 TSH,3RD Generation 1.23 mIU/L 0.40-4.50 2 T4,Free 1.1 ng/dL 0.8-1.8 2 Laboratory test finding 10/29/2009 PSA,Total 0.3 NG/ML 0.0-4.0 , Lipid Panel 10/29/2009 Cholesterol 172 mg/dL 125-200 2 HDL Cholesterol 43 mg/dL > Or=40 2 Triglycerides 75 mg/dL <150 2 Cholesterol/HDL Ratio 4.0 < Or=5.0 2 LDL Chol,Calculated 114 mg/dL <130 2, 14 Laboratory test finding 2007 CK 80 U/L 26-190 Troponin-I 0.0 NG/ML 0.0-0.6 15 Laboratory test finding 10/04/2007 CK 146 U/L 26-190 16 Troponin-I 0.0 NG/ML 0.0-0.6 16, 17 Basic Metabolic Panel 10/04/2007 Glucose 136 mg/dL High 76-115 16 BUN 22 mg/dL 5-23 16 Creatinine 1.3 mg/dL 0.5-1.4 16 BUN/Creat 16.9 16 Sodium 140 mEq/L 136-145 16 Potassium 4.3 mEq/L 3.5-5.1 16 Chloride 106 mEq/L 98-107 16 Carbon Dioxide 28 mEq/L 21-32 16 Anion Gap 10 mEq/L 8-16 16 Calcium 9.0 mg/dL 8.5-10.1 16 CBS W/Automated Diff 10/04/2007 White Blood Count 5.8 K/uL 3.4-10.5 16 Red Blood Count 4.59 M/uL 4.20-5.80 16 Hemoglobin 14.2 gm/dL 12.8-17.0 16 Hematocrit 41.7 % 38.0-48.0 16 Mean Cell Volume 90.8 fL 80.0-96.0 16 Mean Corpuscular HGB 31.1 pg 27.0-33.0 16 Mean Corpuscular HGB Conc 34.2 g/dL 31.7-36.0 16 Platelet Count 283 K/uL 150-400 16 Red Cell Distri Width %CV 12.5 % 11.6-15.8 16 Mean Platelet Volume 8.1 fl 6.6-10.6 16 Neut% 64.3 % 33.0-73.0 16 Lymph % 22.7 % 17.0-56.0 16 [place] % 9.5 % 0.0-10.0 16 Eo% 0.8 % 0.0-5.0 16 Bas% 0.4 % 0.1-1.0 16 [place]% 2.3 % 0.0-4.0 16 Neut# 3.7 K/uL 1.8-7.0 16 Lymph # 1.3 K/uL 1.2-4.0 16 [place] # 0.6 K/uL 0.0-0.6 16 Eos # 0.1 K/uL 0.0-0.5 16 Baso # 0.0 K/uL Low 0.1-0.2 16 Calos# 0.1 0.0-1.5 16 CBC 10/04/2007 White Blood Count 4.0 K/uL 3.4-10.5 18 Red Blood Count 4.32 M/uL 4.20-5.80 18 Hemoglobin 13.1 gm/dL 12.8-17.0 18 Hematocrit 39.5 % 38.0-48.0 18 Mean Cell Volume 91.6 fL 80.0-96.0 18 Mean Corpuscular HGB 30.4 pg 27.0-33.0 18 Mean Corpuscular HGB Conc 33.2 g/dL 31.7-36.0 18 Platelet Count 263 K/uL 150-400 18 Red Cell Distri Width %CV 12.6 % 11.6-15.8 18 Mean Platelet Volume 6.7 fl 6.6-10.6 18 Laboratory test finding 10/04/2007 Amylase 47 U/L 18-98 18 Lipase 246 U/L 114-286 18 CK 105 U/L 26-190 18 Troponin-I 0.0 NG/ML 0.0-0.6 18, 19 Vitamin B12 214 pg/mL 208-964 18 Folic Acid 16.4 ng/mL High 6.0-15.4 18 Thyroid Stim Hormone 1.58 uIU/mL 0.49-4.67 18 LDL Cholesterol Profile 10/04/2007 Cholesterol 153 mg/dL 120-200 18 Triglycerides 132 mg/dL 0-210 18 HDL Cholesterol 30 mg/dL Low 32-96 18 LDL-Cholesterol 97 mg/dL 62-185 18 Liver Function Tests 10/04/2007 Total Protein 6.4 g/dL 6.3-8.0 18 Albumin 4.0 g/dL 3.5-5.0 18 Bilirubin,Total 0.4 mg/dL 0.2-1.2 18 Bilirubin,Direct 0.1 mg/dL 0.1-0.4 18 Bilirubin,Indirect 0.3 mg/dL 0.0-0.9 18 Sgot/Ast 11 U/L Low 16-40 18 SGPT/Alt 34 U/L 30-65 18 Alkaline Phosphatase 53 U/L 50-136 18 CBC W/ Diff & PLT 04/29/2006 WBC 3.9 thous/L 3.8-10.8 20 RBC 4.88 mill/L 4.20-5.80 20 Hemoglobin 14.9 g/dL 13.2-17.1 20 Hematocrit 44.4 % 38.5-50.0 20 MCV 91.0 FL 80.0-100.0 20 MCH 30.6 pg 27.0-33.0 20 MCHC 33.6 g/dL 32.0-36.0 20 RDW 14.6 % 11.0-15.0 20 Platelet Count 294 thous/L 140-400 20 Platelet Sufficiency NORMAL 20 Neutrophils,Absolute 2350 cells/L 0588-3458 20 Bands,Absolute DNR cells/L 0-750 20 Metamyelocytes,Absolute DNR cells/L 0 20 Myelocytes,Absolute DNR cells/L 0 20 Promyelocytes,Absolute DNR cells/L 0 20 Lymphocytes,Absolute 1130 cells/L 850-3900 20 Monocytes,Absolute 360 cells/L 200-950 20 Eosinophils,Absolute 40 cells/L 15-500 20 Basophils,Absolute 10 cells/L 0-200 20 Blast Cells,Absolute DNR cells/L 0 20 Nucleated RBC,Absolute DNR cells/L 0 20 Total Neutrophils,% 61 % 38-80 20 Bands,% DNR % 0-10 20 Metamyelocytes,% DNR % 20 Myelocytes,% DNR % 20 Promyelocytes,% DNR % 20 Total Lymphocytes,% 29 % 15-49 20 Monocytes,% 9 % 0-13 20 Eosinophils,% 1 % 0-8 20 Basophils,% 0 % 0-2 20 Blasts,% DNR % 20 Nucleated RBC DNR /100WBC 0 20 RBC Morphology NORMAL 20 Anisocytosis DNR 20 Poikilocytosis DNR 20 Microcytosis DNR 20 Macrocytosis DNR 20 Polychromasia DNR 20 Hypochromasia DNR 20 Target Cells DNR 20 Basophilic Stippling DNR 20 Comment DNR 20 Comp Metabolic Panel 04/29/2006 Sodium 144 mmol/L 135-146 20 Potassium 5.0 mmol/L 3.5-5.3 20 Chloride 108 mmol/L 98-110 20 Carbon Dioxide 26 mmol/L 21-33 20 Calcium 10.0 mg/dL 8.5-10.4 20 Alkaline Phosphatase 50 U/L 20-125 20 Ast 14 U/L 3-50 20 Alt 19 U/L 3-60 20 Bilirubin,Total 0.6 mg/dL 0.2-1.5 20 Glucose 95 mg/dL 65-99 20, 21 Urea Nitrogen 19 mg/dL 7-25 20 Creatinine 1.2 mg/dL 0.5-1.4 20 BUN/Creatinine Ratio 15.4 6-25 20 Protein,Total 7.5 g/dL 6.0-8.3 20 Albumin 4.9 g/dL 3.7-5.1 20 Globulin,Calculated 2.6 g/dL 2.2-4.2 20 A/G Ratio 1.9 0.8-2.0 20 GFR Estimated >60 ML/MIN/1.7 >59 20, 22 TSH & T4,Free 04/29/2006 TSH 0.71 mU/L 0.40-5.50 20 T4,Free 1.2 ng/dL 0.8-1.8 20 Lipid Panel 04/29/2006 Cholesterol 198 mg/dL <200 20 HDL Cholesterol 46 mg/dL >40 20, 23 Cholesterol/HDL Ratio 4.3 <5.0 20 LDL Chol,Calculated 126 mg/dL <130 20, 24 Triglycerides 131 mg/dL <150 20 1 REFERENCE VALUE <=1.0 (Negative) Test Performed by: [facility] - [address] [address] Clinical Education Coordinator: Eamon Hardin II, M.D., Ph.D. 2 FASTING 3 GLUCOSE REFERENCE RANGE BASED ON FASTING SPECIMEN. 4 LDL-CHOLESTEROL RISK CATEGORY* GOAL VERY HIGH (E.G. DIABETES + CVD) <70 MG/DL HIGH (DIABETICS; CHD RISK EQUIVALENTS) <100 MG/DL MODERATELY HIGH (MULTIPLE(2+) RISK FACTORS) <130 MG/DL 0 TO 1 RISK FACTORS <160 MG/DL * NCEP REPORT. CIRCULATION 2004; 110: 227-239 5 Target for non-HDL cholesterol is 30 mg/dL higher than LDL cholesterol target. 6 THIS TEST WAS PERFORMED USING THE [employer] CHEMILUMINESCENT METHOD. VALUES OBTAINED FROM DIFFERENT ASSAY METHODS CANNOT BE USED INTERCHANGEABLY. PSA LEVELS, REGARDLESS OF VALUE, SHOULD NOT BE INTERPRETED ABSOLUTE EVIDENCE OF THE PRESENCE OR ABSENCE OF DISEASE. 7 GLUCOSE REFERENCE RANGE BASED ON FASTING SPECIMEN. 8 THIS TEST WAS PERFORMED USING THE [employer] CHEMILUMINESCENT METHOD. VALUES OBTAINED FROM DIFFERENT ASSAY METHODS CANNOT BE USED INTERCHANGEABLY. PSA LEVELS, REGARDLESS OF VALUE, SHOULD NOT BE INTERPRETED ABSOLUTE EVIDENCE OF THE PRESENCE OR ABSENCE OF DISEASE. 9 LDL-CHOLESTEROL RISK CATEGORY* GOAL VERY HIGH (E.G. DIABETES + CVD) <70 MG/DL HIGH (DIABETICS; CHD RISK EQUIVALENTS) <100 MG/DL MODERATELY HIGH (MULTIPLE(2+) RISK FACTORS) <130 MG/DL 0 TO 1 RISK FACTORS <160 MG/DL * NCEP REPORT. CIRCULATION 2004; 110: 227-239 10 Target for non-HDL cholesterol is 30 mg/dL higher than LDL cholesterol target. 11 Note: Persistent reduction for 3 months or more in an eGFR <60 mL/min/1.73 m2 defines CKD. Patients with eGFR values >/=60 mL/min/1.73 m2 may also have CKD if evidence of persistent proteinuria is present. The original MDRD equation for estimated GFR is not valid for patients less than 18 years of age. Additional information may be found at [email or web address]. 12 GLUCOSE REFERENCE RANGE BASED ON FASTING SPECIMEN. 13 PSA VALUES FROM DIFFERENT ASSAY METHODS CANNOT BE USED INTERCHANGEABLY. THIS ASSAY WAS PERFORMED USING THE [employer] CHEMILUMINESCENCE METHOD. SERUM PSA LEVELS SHOULD NOT BE INTERPRETED ABSOLUTE EVIDENCE OF THE PRESENCE OR ABSENCE OF DISEASE. 14 LDL-CHOLESTEROL RISK CATEGORY* GOAL VERY HIGH (E.G. DIABETES + CVD) <70 MG/DL HIGH (DIABETICS; CHD RISK EQUIVALENTS) <100 MG/DL MODERATELY HIGH (MULTIPLE(2+) RISK FACTORS) <130 MG/DL 0 TO 1 RISK FACTORS <160 MG/DL * NCEP REPORT. CIRCULATION 2004; 110: 227-239 15 0 - 0.6 NG/ML: NO EVIDENCE OF MYOCARDIAL INJURY 0.7 - 1.5 NG/ML: MILD ELEVATION, SUGGESTING POSSIBLE MYOCARDIAL INJURY > 1.5 NG/ML: CONSISTENT WITH MYOCARDIAL INJURY 16 Specimen: [id number] - TESTS: C7, CPK, TROP SLI HEMOLYZED TEST: C7 QUERY : IS THE PATIENT FASTING? QUERY: CARD 1=GLU, BUN, CRE, NA, K, CL, CO2, CALCIUM + GAP TEST: CPK TEST: TROP 17 0 - 0.6 NG/ML: NO EVIDENCE OF MYOCARDIAL INJURY 0.7 - 1.5 NG/ML: MILD ELEVATION, SUGGESTING POSSIBLE MYOCARDIAL INJURY > 1.5 NG/ML: CONSISTENT WITH MYOCARDIAL INJURY 18 Specimen: [id number] - TESTS: B12, FOL, TSH IS THE PATIENT FASTING? FASTING TEST: B12 QUERY: IS THE PATIENT FASTING? TEST: FOL QUERY: IS THE PATIENT FASTING? TEST: TSH 19 0 - 0.6 NG/ML: NO EVIDENCE OF MYOCARDIAL INJURY 0.7 - 1.5 NG/ML: MILD ELEVATION, SUGGESTING POSSIBLE MYOCARDIAL INJURY > 1.5 NG/ML: CONSISTENT WITH MYOCARDIAL INJURY 20 FASTING 21 GLUCOSE REFERENCE RANGE BASED ON FASTING SPECIMEN. 22 THE GFR ESTIMATE IS NOT ADJUSTED FOR RACE, IF THE PATIENT'S RACE IS -NEPALESE, THE GFR ESTIMATE MUST BE MULTIPLIED BY A FACTOR OF 1.21. 23 HDL REFERENCE RANGES ADULTS (20 YEARS & OLDER) DESIRABLE: > OR=60 MG/DL HIGHER RISK: <40 MG/DL 24 LDL-CHOLESTEROL RISK CATEGORY* GOAL VERY HIGH (E.G. DIABETES + CVD) <70 MG/DL HIGH (DIABETICS; CHD RISK EQUIVALENTS) <100 MG/DL MODERATELY HIGH (MULTIPLE(2+) RISK FACTORS) <130 MG/DL 0 TO 1 RISK FACTORS <160 MG/DL * NCEP REPORT. CIRCULATION 2004; 110: 227-239 Procedures Date CPT Code Description Status 04/12/2016 09791 Non-Invcorrotid/Comp /Bilat Study Completed 04/12/2016 15302 Echocardiography Completed 01/24/2015 16489 Spirometry Graphic Record/Max Voluntary Vent Completed 01/24/2015 54603 EKG-Tracing & Report Completed 01/23/2015 76743 Non-Invcorrotid/Comp /Bilat Study Completed 01/23/2015 46191 Echocardiography Completed 12/06/2013 08293 Spirometry Graphic Record/Max Voluntary Vent Completed 12/06/2013 82998 Holter Monitor Office Completed 12/06/2013 52643 EKG-Tracing & Report Completed 11/19/2013 48154 Non-Invcorrotid/Comp /Bilat Study Completed 11/19/2013 89311 Echocardiography Completed 12/23/2011 82323 EKG-Tracing & Report Completed 12/20/2011 22090 Echocardiography Completed 10/29/2009 11707 EKG-Tracing & Report Completed 10/29/2009 50706 Holter Monitor Office Completed 10/29/2009 56750 PFT Evaluation Completed 10/27/2009 05938 Echocardiography Completed 12/14/2006 27531 PFT Evaluation Completed 10/31/2006 56530 PFT Evaluation Completed 04/29/2006 14739 Spirometry Graphic Record/Max Voluntary Vent Completed 04/29/2006 38412 Non-Invcorrotid/Comp /Bilat Study Completed 04/29/2006 12005 Doppler Color Flow Velocity Completed 04/29/2006 17858 Doppler/ECHO Completed 04/29/2006 56167 ECHO-2D W/Wo M-Mode Completed 04/29/2006 00825 Holter Monitor Office Completed 04/29/2006 00262 EKG-Tracing & Report Completed 06/03/2004 16606 Doppler Color Flow Velocity Completed 06/03/2004 48178 Doppler/ECHO Completed 06/03/2004 66266 ECHO-2D W/Wo M-Mode Completed 05/22/2004 28966 EKG-Tracing & Report Completed Encounters Type Date Location Provider CPT E/M Dx Office Visit 07/18/2017 11:30a [place] [address] J20.9 Office Visit 06/15/2017 11:20a [place] [address] A09 L71.9 Office Visit 03/01/2017 3:30p [place] [address] J20.9 Office Visit 12/20/2016 1:40p [place] [address] R09.1 Office Visit 12/13/2016 3:20p [place] [address] R09.1 Office Visit 12/06/2016 3:30p [place] [address] R09.1 Office Visit 07/26/2016 11:40a [place] [address] K21.9 I34.0 Office Visit 07/19/2016 3:00p [place] [address] J01.90 Office Visit 07/09/2016 4:00p [place] [address] J01.90 Office Visit 05/18/2016 3:00p [place] [address] I34.0 K21.9 G25.0 K58.0 G43.909 Office Visit 05/05/2016 10:50a [place] [address] I34.0 I65.23 K21.9 F41.1 G25.0 K58.0 G43.909 R10.9 Z00.00 Office Visit 03/02/2016 1:30p [place] [address] E78.5 K21.9 F41.1 G25.0 Office Visit 10/06/2015 3:00p [place] [address] F41.1 E78.5 I34.0 K21.9 Office Visit 08/11/2015 3:30p [place] [address] K58.0 Office Visit 07/31/2015 3:30p Main Office Sybil Gonsalez M.D. 41278 J20.2 Office Visit 03/03/2015 11:40a [place] [address] 465.9 Office Visit 02/25/2015 11:30a [place] [address] 465.9 Office Visit 02/11/2015 11:20a [place] [address] 272.4 300.02 530.81 333.1 Office Visit 01/07/2015 11:50a [place] [address] 272.4 424.0 300.02 Office Visit 07/30/2014 3:10p [place] [address] 272.4 424.0 300.02 Office Visit 04/24/2014 11:30[place] [address] 272.4 424.0 530.81 300.02 Office Visit 12/12/2013 2:00p [place] [address] 272.4 272.40 424.0 530.81 300.02 346.90 Office Visit 10/30/2013 2:40p [place] [address] 333.1 530.81 300.02 Office Visit 10/26/2013 10:30a [place] [address] 461.8 333.1 300.02 GENERAL Office Visit 06/19/2013 3:20p [place] [address] 466.0 Office Visit 05/29/2013 3:00p [place] [address] 785.2 300.02 Office Visit 11/09/2012 11:00a Main Office Sybil Gonsalez M.D. 93482 466.0 Office Visit 10/03/2012 10:10a [place] [address] 466.0 Office Visit 06/26/2012 3:30p [place] [address] 466.0 Office Visit 04/25/2012 2:20p [place] [address] 466.0 Office Visit 04/04/2012 1:40p [place] [address] 333.1 272.4 530.81 346.90 Office Visit 12/14/2011 1:40p [place] [address] 578.1 569.42 272.40 785.2 784.0 272.00 530.81 465.9 Office Visit 10/14/2011 11:15a [place] [address] 465.9 GENERAL Office Visit 07/12/2011 11:20a [place] [address] 784.0 Office Visit 05/04/2011 2:40p [place] [address] 466.0 272.40 785.2 784.0 272.00 530.81 Office Visit 11/24/2010 2:20p [place] [address] 466.0 Office Visit 05/12/2010 10:00a [place] [address] 346.90 272.4 424.0 Office Visit 02/02/2010 1:45p [place] [address] 461.9 466.0 GENERAL Office Visit 01/21/2010 10:30a [place] [address] 462 Office Visit 01/05/2010 10:10a [place] [address] 466.0 Office Visit 12/29/2009 11:50a [place] [address] 346.90 Office Visit 11/12/2009 11:50a [place] [address] 785.10 272.4 493.90 424.0 V03.7 Office Visit 10/06/2009 11:40a [place] [address] 466.00 Office Visit 12/19/2008 12:00p Main Office Sybil Gonsalez M.D. 84034 466.00 Office Visit 11/28/2008 2:45p [place] [address] 460.00 Office Visit 11/18/2008 11:30[place] [address] GENERAL 333.1 300.02 V03.2 346.90 Office Visit 09/03/2008 3:10p [place] [address] 333.1 300.02 Office Visit 01/22/2008 2:40p [place] [address] 382.9 Office Visit 10/13/2007 11:30a [place] [address] 789.00 Office Visit 08/17/2007 11:20a [place] [address] 493.90 455.6 785.9 333.1 346.90 424.0 Office Visit 11/09/2006 11:30[place] [address] 493.90 682.90 490 455.6 Office Visit 11/02/2006 3:30p [place] [address] 682.90 272.00 784.0 530.81 Office Visit 11/01/2006 3:15p Main Office Sybil Gonsalez M.D. 76369 487.1 455.6 Office Visit 09/21/2006 3:20p [place] [address] 490 Office Visit 08/30/2006 2:20p [place] [address] 780.40 Office Visit 05/09/2006 9:00a [place] [address] 785.10 785.9 530.81 477.9 333.1 302.72 346.90 278.00 Office Visit 10/26/2005 3:00p [place] [address] 490 272.40 272.00 477.9 530.81 333.1 302.72 346.90 786.59 592.0 729.1 Office Visit 10/27/2004 3:30p [place] [address] 272.40 272.00 Office Visit 07/28/2004 3:40p [place] [address] 460.00 Office Visit 05/25/2004 3:20p [place] [address] 784.0 Plan of Care 07/18/2017 - Bk Gonsalez MDJ20.9 Acute bronchitis, unspecifiedNew Medication: Doxycycline Hyclate 100 mgComments:Discussed medication use and compliance and side effects. Environmental factors such as smoke exposure and tobacco use discussed and the appropriate counselling provided. Symptomatic follow up arranged.
--- NOTE | 2017-11-13 11:03 | UC ---
Respiratory Complaint HPI - HPI Summary HPI Summary: Sore throat and congestion that has turned into a cough. Now this is day #4. NO known fever. NO prior lung disease. NO otc meds. - History of Current Complaint Stated Complaint: SORE THROAT,COUGH Time Seen by Provider: 11/13/17 10:49 - Risk Factors Pulmonary Embolism Risk Factors: Negative Cardiac Risk Factors: Negative - Allergies/Home Medications Allergies/Adverse Reactions: Allergies Allergy/AdvReac Type Severity Reaction Status Date / Time Azithromycin [From Zithromax] Allergy Intermediate Rash Verified 10/24/17 09:04 Penicillins Allergy Hives Verified 10/24/17 09:04 Sulfamethoxazole Allergy Rash Verified 10/24/17 09:04 w/Trimethoprim [From Bactrim] PMH/Surg Hx/FS Hx/Imm Hx Previously Healthy: Yes - Surgical History Surgical History: None - Family History Known Family History: Positive: None, Other Negative: Cardiac Disease, Hypertension, Respiratory Disease - Social History Occupation: Employed Full-time Alcohol Use: Rare Substance Use Type: None Smoking Status (MU): Never Smoked Tobacco - Immunization History Most Recent Influenza Vaccination: Not the 2015/2016 Season Review of Systems ENT: Sore Throat Respiratory: Cough All Other Systems Reviewed And Are Negative: Yes Physical Exam Triage Information Reviewed: Yes Appearance: Well-Appearing, No Pain Distress, Well-Nourished Vital Signs Reviewed: Yes Eyes: Positive: Conjunctiva Clear ENT: Positive: Normal ENT inspection, Pharynx normal, Pharyngeal erythema, TMs normal, Uvula midline. Negative: Tonsillar swelling, Tonsillar exudate, Trismus Neck: Positive: Supple, Nontender, No Lymphadenopathy Respiratory: Positive: Lungs clear, Normal breath sounds, No respiratory distress, No accessory muscle use. Negative: Respiratory distress, Decreased breath sounds, Accessory muscle use, Crackles, Rhonchi, Stridor, Wheezing Cardiovascular: Positive: No Murmur, Pulses Normal, Brisk Capillary Refill Abdomen Description: Positive: No Organomegaly, Soft. Negative: Distended, Guarding Musculoskeletal: Positive: Strength Intact, ROM Intact, No Edema Neurological: Positive: Alert, Muscle Tone Normal, Fatigued Psychological: Positive: Age Appropriate Behavior Skin: Negative: rashes Respiratory Course/Dx - Differential Dx/Diagnosis Provider Diagnoses: uri Discharge - Discharge Plan Condition: Good Disposition: HOME Prescriptions: DOXYcycline CAP(*) [DOXYcycline 100MG CAP(*)] 100 mg PO BID #20 cap Patient Education Materials: Upper Respiratory Infection (ED) Referrals: Bk Gonsalez MD [Primary Care Provider] - If Needed Additional Instructions: Fill the antibiotic if not better by day #9. Until then try robitussin Dm and mucinex dm.
[2017-11-13 11:12] VITALS: BP 144/77
== END 2017-11-13 11:20 | disposition home or self-care (01) ==
LOC: UCCORT 09:30
DX: J06.9 Acute upper respiratory infection, unspecified (principal); Z88.1 Allergy status to other antibiotic agents; Z88.0 Allergy status to penicillin; Z88.2 Allergy status to sulfonamides
CPT/HCPCS: 99212; G0463

== ENCOUNTER 2017-12-03 11:03 | Emergency (ER) | payer BC ==
--- NOTE | 2017-12-03 12:36 | UC ---
Respiratory Complaint HPI - HPI Summary HPI Summary: 52 y/o male presents to the urgent care c/o dry cough, nasal congestion, pressure and clear nasal discharge, sore throat for the past 2 days. Pt reports he was seen here at the clinic about 2 weeks ago and Dx w/ Bronchitis and Rx Doxycycline. Symptoms resolved for few days, but he thinks they are returning. 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 Pain is 4/10 w/ swallowing. Pt denies SOB, dizziness, chest pain, abdominal pain, N/V/D. He has been taking OTC medication to alleviate cough. - History of Current Complaint Stated Complaint: RESPIRATORY Time Seen by Provider: 12/03/17 12:35 Hx Obtained From: Patient Onset/Duration: Gradual Onset, Lasting Days Timing: Intermittent Episodes Severity Initially: Mild Severity Currently: Moderate Pain Intensity: 4 Pain Scale Used: 0-10 Numeric Character: Cough: Nonproductive Aggravating Factors: Recumbent Position Alleviating Factors: Nothing Associated Signs And Symptoms: Positive: Fever, Chills, URI, Nasal Congestion - Risk Factors Pulmonary Embolism Risk Factors: Negative Cardiac Risk Factors: Negative Pseudomonas Risk Factors: Negative Tuberculosis Risk Factors: Negative - Allergies/Home Medications Allergies/Adverse Reactions: Allergies Allergy/AdvReac Type Severity Reaction Status Date / Time azithromycin [From Zithromax] Allergy Intermediate Rash Verified 12/03/17 12:55 Penicillins Allergy Hives Verified 12/03/17 12:55 sulfamethoxazole Allergy Rash Verified 12/03/17 12:55 [From Bactrim] trimethoprim [From Bactrim] Allergy Rash Verified 12/03/17 12:55 PMH/Surg Hx/FS Hx/Imm Hx Previously Healthy: Yes Other Neurological History: tremors since he was a child Psychological History: Anxiety - Surgical History Surgical History: None - Family History Known Family History: Positive: Diabetes Negative: Cardiac Disease, Hypertension, Respiratory Disease - Social History Occupation: Employed Full-time Lives: With Family Alcohol Use: Rare Substance Use Type: None Smoking Status (MU): Never Smoked Tobacco - Immunization History Most Recent Influenza Vaccination: Not the 2016/2016 Season Review of Systems Constitutional: Fever, Chills, Fatigue Skin: Negative Eyes: Negative ENT: Sore Throat, Nasal Discharge, Sinus Congestion Respiratory: Cough Cardiovascular: Negative Gastrointestinal: Negative Genitourinary: Negative Motor: Negative Neurovascular: Negative Musculoskeletal: Negative Neurological: Headache Psychological: Negative Is Patient Immunocompromised?: No All Other Systems Reviewed And Are Negative: Yes Physical Exam Triage Information Reviewed: Yes - Additional Comments VITAL SIGNS: Reviewed. GENERAL: Patient is a well developed and nourished male who is sitting comfortable in the examining table. Patient is not in any acute respiratory distress. HEAD AND FACE: No signs of trauma. No ecchymosis, hematomas or skull depressions. No sinus tenderness. edematous erythematous nasal mucosa with yellowish discharge, EYES: PERRLA, EOMI x 2, No injected conjunctiva, clear watery eyes, no nystagmus. No photophobia. EARS: Hearing grossly intact. Ear canals and tympanic membranes are within normal limits. MOUTH: Positive pharynx with erythema, no exudates,no palatal petechiae. no B/ L tonsillar enlargement Uvula in midline. NECK: Supple, trachea is midline, Positive anterior cervical lymphadenopathy, no JVD, no carotid bruit, no c-spine tenderness, neck with full ROM. No meningeal signs, no Kernig's or brudzinskis signs. CHEST: Symmetric, no tenderness at palpation LUNGS: Clear to auscultation bilaterally. No wheezing or crackles. CVS: Regular rate and rhythm, S1 and S2 present, no murmurs or gallops appreciated. ABDOMEN: Soft, non-tender. No signs of distention. No rebound no guarding, and no masses palpated. Bowel sounds are normal. EXTREMITIES: FROM in all major joints, no edema, no cyanosis or clubbing. NEURO: Alert and oriented x 3. No acute neurological deficits. Speech is normal and follows commands. SKIN: Dry and warm Respiratory Course/Dx - Course Course Of Treatment: 52 y/o male presents to the urgent care c/o dry cough, nasal congestion, pressure and clear nasal discharge, sore throat for the past 2 days. Pt reports he was seen here at the clinic about 2 weeks ago and Dx w/ Bronchitis and Rx Doxycycline. Symptoms resolved for few days, but he thinks they are returning. 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 Pain is 4/10 w/ swallowing. Pt denies SOB, dizziness, chest pain, abdominal pain , N/V/D. He has been taking OTC medication to alleviate cough. Hx obtained. Pt with pharyngitis on examination. Rapid strep ordered, result: negative.Influenza A&B ordered: result: Influenza B positive.Pt Rx Tamiflu and ibuprofen PO to alleviates symptoms. Advised on hand washing and wear a mask to avoid spreading. Pt advised to rest, increase fluid intake, eat well and avoid strenuous exercise. If symptoms do not improve or worsen advised to return to the urgent care or f/u with her PCP for further evaluation and treatment. Pt's BP is elevated today advised to decrease salt in diet, monitor BP and f/u with PCP for further management.Pt understood and agreed with plan of care. - Differential Dx/Diagnosis Differential Diagnosis/HQI/PQRI: Asthma, Bronchitis, Influenza, Laryngitis, Lower Resp Infection, Sinusitis Provider Diagnoses: 1- Influenza B. 2-cough. 3- Elevated BP w/o Hx of HTN Discharge - Discharge Plan Condition: Stable Disposition: HOME Prescriptions: Benzonatate CAP* [Tessalon 100 MG CAP*] 100 mg PO TID PRN #21 cap PRN Reason: Cough Ibuprofen TAB* [Motrin TAB* 800 MG] 800 mg PO Q6H PRN #30 tab PRN Reason: Pain Oseltamivir CAP* [Tamiflu CAP*] 75 mg PO BID #10 cap Patient Education Materials: Influenza (ED), Low-Sodium Diet (ED) Forms: *Work Release Referrals: Bk Gonsalez MD [Primary Care Provider] - 3 Days Additional Instructions: 1- Please take the full course of the antiviral to avoid resistance. Encourage hand washing and wear a mask to avoid spreading. 2-Please continue taking ibuprofen PO q6-8hrs prn as instructed after meals to alleviate fever, and sore throat. Increase fluid intake, eat well, rest and avoid strenuous exercise 3-If symptoms do not improve or worsen please return to the urgent care or f/u with your PCP in 2 days for further evaluation and treatment. 4- Your BP is elevated today. please decrease salt in your diet, monitor BP and if it continues to be elevated please f/u with your PCP for further management
[2017-12-03 12:54] VITALS: BP 153/95
== END 2017-12-03 13:40 | disposition home or self-care (01) ==
LOC: UCCORT 11:03
DX: J10.1 Influenza due to other identified influenza virus with other respiratory manifestations (principal); R05 Cough; R03.0 Elevated blood-pressure reading, without diagnosis of hypertension; Z20.89 Contact with and (suspected) exposure to other communicable diseases; Z20.828 Contact with and (suspected) exposure to other viral communicable diseases
CPT/HCPCS: 87502; 87651; 99212; G0463

== ENCOUNTER 2018-03-25 18:16 | Emergency (ER) | payer BC ==
[2018-03-25 18:40] VITALS: BP 149/99
[2018-03-25] MEDS ORDERED: Carisoprodol TAB* 350 MG PO ONE ×2 (18:56→18:58)
--- NOTE | 2018-03-25 19:03 | UC ---
Back Pain HPI - HPI Summary HPI Summary: sudden onset of muscle spasm in lumbar back after lifting and twisting at the same time this afternoon at home. Pain is 10/10 and does not radiate down his legs has muscular tenderness with decrease ROM at his waist - History of Current Complaint Hx Obtained From: Patient Onset/Duration: Sudden Onset, Lasting Hours Timing: Constant Pain Intensity: 10 Pain Scale Used: 0-10 Numeric Back Pain: Is Discrete @ - right side lumbar spine Character: Aching, Spasmodic, Stiffness Aggravating Factor(s): Movement, Lifting, Bending Associated Signs And Symptoms: Positive: Negative <Janee Martinez - Last Filed: 03/25/18 19:22> <Yovanny Neil - Last Filed: 03/25/18 20:10> - History of Current Complaint Chief Complaint: UCBackPain Stated Complaint: BACK PAIN Time Seen by Provider: 03/25/18 18:43 - Allergies/Home Medications Allergies/Adverse Reactions: Allergies Allergy/AdvReac Type Severity Reaction Status Date / Time azithromycin [From Zithromax] Allergy Intermediate Rash Verified 12/03/17 12:55 Penicillins Allergy Hives Verified 12/03/17 12:55 sulfamethoxazole Allergy Rash Verified 12/03/17 12:55 [From Bactrim] trimethoprim [From Bactrim] Allergy Rash Verified 12/03/17 12:55 PMH/Surg Hx/FS Hx/Imm Hx Previously Healthy: No Psychological History: Depression - Surgical History Surgical History: None - Family History Known Family History: Positive: None, Diabetes, Other Negative: Cardiac Disease, Hypertension, Respiratory Disease - Social History Occupation: Employed Full-time Lives: With Family Alcohol Use: Rare Substance Use Type: None Smoking Status (MU): Never Smoked Tobacco - Immunization History Most Recent Influenza Vaccination: Not the 2016/2016 Season <Janee Martinez - Last Filed: 03/25/18 19:22> Review of Systems Constitutional: Negative Skin: Negative Eyes: Negative ENT: Negative Respiratory: Negative Cardiovascular: Negative Gastrointestinal: Negative Genitourinary: Negative Motor: Decreased ROM - waist Neurovascular: Negative Musculoskeletal: Negative, Myalgia - right side of lumar back Neurological: Negative Psychological: Negative Is Patient Immunocompromised?: No All Other Systems Reviewed And Are Negative: Yes <Janee Martinez - Last Filed: 03/25/18 19:22> Physical Exam Triage Information Reviewed: Yes Appearance: Well-Appearing, Well-Nourished, Pain Distress Vital Signs: Initial Vital Signs Temp 98.2 F 03/25/18 18:35 Pulse 80 03/25/18 18:35 Resp 18 03/25/18 18:35 BP 149/99 03/25/18 18:35 Pulse Ox 97 03/25/18 18:35 Vital Signs Reviewed: Yes Eye Exam: Normal Eyes: Positive: Conjunctiva Clear ENT Exam: Normal ENT: Positive: Normal ENT inspection, Hearing grossly normal. Negative: Nasal congestion, Trismus, Muffled voice, Hoarse voice Dental Exam: Normal Neck exam: Normal Neck: Positive: Supple, Nontender, No Lymphadenopathy Respiratory Exam: Normal Respiratory: Positive: Chest non-tender, Lungs clear, Normal breath sounds, No respiratory distress, No accessory muscle use Cardiovascular Exam: Normal Cardiovascular: Positive: RRR, No Murmur, Pulses Normal, Brisk Capillary Refill Abdomen Description: Negative: CVA Tenderness (R), CVA Tenderness (L) Musculoskeletal Exam: Other Musculoskeletal: Positive: No Edema, Strength Limited @ - low back, ROM Limited @ - waist and low back Neurological Exam: Normal Psychological Exam: Normal Skin Exam: Normal <Janee Martinez - Last Filed: 03/25/18 19:22> Vital Signs: Initial Vital Signs Temp 98.2 F 03/25/18 18:35 Pulse 80 03/25/18 18:35 Resp 18 03/25/18 18:35 BP 149/99 03/25/18 18:35 Pulse Ox 97 03/25/18 18:35 <Yovanny Neil - Last Filed: 03/25/18 20:10> Back Pain Course/Dx - Course Course Of Treatment: medrol dose pack to start in morning-soma (patient reports that robaxin is not helpful for him) ice and back stretching and strengthening exercises provided. follow blood pressure and back pain with Dr. Gonsalez - Differential Dx/Diagnosis Provider Diagnoses: elevated blood pressure with out dx of hypertension, muscle spasm low right side of back <Janee Martinez - Last Filed: 03/25/18 19:22> Discharge - Sign-Out/Discharge Documenting (check all that apply): Discharge/Admit/Transfer - Billing Disposition and Condition Condition: STABLE Disposition: Home <Janee Martinez - Last Filed: 03/25/18 19:22> - Billing Disposition and Condition Condition: STABLE Disposition: Home <JolynnYovanny - Last Filed: 03/25/18 20:10> - Discharge Plan Condition: Stable Disposition: HOME Prescriptions: Carisoprodol TAB* [Soma TAB*] 350 mg PO TID PRN #9 tab MDD 3 PRN Reason: muscle spasm methylPREDNISolone [Medrol] 4 mg PO .SEE LARISSA INSTRUCTION #1 larissa Patient Education Materials: Hypertension (ED), Muscle Spasm (ED), Lower Back Exercises (ED) Referrals: Bk Gonsalez MD [Primary Care Provider] - 3 Days
== END 2018-03-25 19:12 | disposition home or self-care (01) ==
LOC: UCCORT 18:16
DX: M62.830 Muscle spasm of back (principal); R03.0 Elevated blood-pressure reading, without diagnosis of hypertension; Z88.1 Allergy status to other antibiotic agents; Z88.2 Allergy status to sulfonamides; X50.0XXA Overexertion from strenuous movement or load, initial encounter; Y93.89 Activity, other specified; Y92.9 Unspecified place or not applicable
CPT/HCPCS: 99212; A9270-GY; G0463

== ENCOUNTER 2018-04-19 12:07 | Emergency (ER) | payer BC ==
--- OUTSIDE RECORDS SUMMARY | 2018-04-19 13:55 | XMS REPORT ---
:1965 External Reference #:[id number] Author Organization [facility] Address [address] [place] [address] Phone [phone] Care Team Providers Name Role Phone Bk Gonsalez MD Primary Care Physician Unavailable Payers Type Date Identification Numbers Payment Provider Subscriber Commercial Policy Number: [id number] Tit[place] Chaim Rainey PayID: [id number] [address] [address] [place] [address] Problems Date Description Provider Status Onset: 10/08/2005 [...] Form Strength Qnty SIG Indications Ordering Provider Levofloxacin 03/29 Active Tablets 500mg 10tab 1 by mouth J20.9 Jese /2017 s every day MD Felix No Work 07/18 Active out of work Bk Brizuela /Odilon until 07/21 MD Wallace 2016 Naproxen 12/20 Active Tablets 500mg 180ta 1 by mouth R09.1 Bk F. /2016 bs twice a day MD Wallace as needed Paxil 03/02 Active Tablets 20mg 90tab 1 by mouth F41.1 Bk F. /2015 s every day MD Wallace Loratadine Active Tablets 10mg 1 by mouth Unknown Allergy Relief /0000 Dispers every day as needed Mucus Relief 12/12 Hx Tablets ER 1200mg 14tab 1 po bid prn R05 Bk F. ER 12 Hour /2017 12HR s MD Wallace Maximum - Strength 03/29 Levofloxacin 12/12 Hx Tablets 500mg 7tabs 1 by mouth J20.9 Bk F. /2017 every day MD Wallace - 03/29 Hydrocodone 12/12 Hx Suer 10-8mg/5M 473ml 5ml by mouth J20.9 Bk F. Polistirex/Chl L every q6hr as MD Wallace orpheniramine - needed Polistirex 03/29 Doxycycline 07/18 Hx Capsules 100mg 30cap 1 by mouth J20.9 Bk F. Hyclate /2016 s twice a day MD Wallace - 03/29 Hydrocodone 07/18 Hx Solution 60-4-5mg/ 480ml 5 milliliters 465.9 Bk F. Bitartrate/Chl 5ML every 6 hour MD Wallace orpheniramine - as needed Maleate/Pse 07/18 Tussionex 07/18 Hx Suer 10-8mg/5M 115ml 1 TSP Every Bk F. Pennkinetic /2016 L 12 Hours as MD Wallace Extended - Needed Release 03/29 Levofloxacin 03/01 Hx Tablets 500mg 10tab 1 [...] Wallace - as needed 12/13 pain Levaquin 10/03 Hx Tablets 500mg 7tabs 1 PO Q Day J01.90 Bk F. /2015 MD Wallace - 07/26 Bactrim DS 07/09 Hx Tablets 800-160mg 20tab 1 by mouth J20.2 Elyn s twice a day MD Felix - 07/19 Zoloft 10/06 Hx Tablets 25mg 30tab 1 by mouth F41.1 Bk F. /2014 s every night MD Wallace - at bedtime 03/02 Metamucil 08/11 Hx Powder 55.46% tid K58.0 Bk F. [facility] MD Wallace Fiber - 03/29 Bactrim DS 07/31 Hx Tablets 800-160mg 20tab 1 by mouth J20.2 Sybil s twice a day Wallace, - M.D. 08/11 Cheratussin ac 07/31 Hx Syrup 100-10mg/ 120ml 1 teaspoon J20.2 Sybil 5ML every 4 hour Wallace, - as needed M.D. 10/06 cough Cheratussin [...] 800-160mg 14tab 1 po bid 466.0 Elyn /2013 lenka Washington MD - 11/21 Doxycycline 06/[address] 100mg 20cap 1 po bid Bk F. /2012 Part lenka Gonsalez MD - 10/26 Doxycycline 06/19 Hx Capsules 100mg 20cap 1 po bid 466.0 Bk F. Hyclate lenka Gonsalez MD - 10/26 Robitussin 06/19 Hx Liquid 6.25-2.5- 118ml as Directed 466.0 Bk F. Night Time /2012 160mg/5ML Per Bottle MD Wallace Cough Cold & - Flu 10/26 Bactrim DS 11/09 Hx Tablets [...] tbspn po 466.0 Bk F. With Codeine /2011 qhs prn MD Wallace - 06/26 Robitussin 06/26 Hx Liquid 10-200mg/ 237ml 466.0 Bk F. Peak Cold /2011 5ML MD Wallace Cough+ Chest - Congestion DM 10/03 Max Strenght Azithromycin 04/25 Hx Tablets 250mg 5tabs 2 [...] 20tab 1 po bid 466.0 Elyn s Felix, - 12/14 Ultram 07/12 Hx Tablets 50mg 120ta one every 6 784.0 Bk F. /2010 bs hours as MD Wallace - needed for 03/02 Work Note 07/12 Hx chaim will be Sybil off work Petr Gonsalez, - 2014 M.Abhinav 03/02 Chaim Pflug 05/07 Hx patient was seen at this MD Felix - office 12/1205/04/11 bronchitis and ear infection. Robitussin 05/04 Hx Liquid 16Oz one 466.0 Bk F. With Codeine tablespoon po MD Wallace - hs prn cough 07/12 Robitussin 11/24 Hx Liquid 16Oz one 466.0 Bk F. With Codeine tablespoon po MD Wallace - qhs prn cough 05/04 Erythromycin 11/24 Hx Tablets 500mg 20tab 1 po bid 466.0 Bk F. s MD Wallace - 07/12 Erythromycin 02/[address] 333mg 20tab tab 1 po bid Elyn s MD Felix - 05/12 Zyrtec Allergy 02/02 Hx Tablets 10mg 30tab 1 po qd s MD Felix - 05/12 Work Note 02/02 Hx chaim will be El off work MD Felix - until saturday 05/1202/09/10 Erythromycin 01/[address] 333mg 20tab 1 po bid with 466.0 Bk F. s food MD Wallace - 02/02 Work Note 01/05 Hx chaim will be Bk F. /2009 off work for MD Wallace - 3 days 05/12 Sumatriptan 12/29 Hx Tablets 25mg 10tab 1 po q 6 hr 346.90 Bk F. Succinate lenka Gonsalez MD - 05/12 Tramadol HCL 12/29 Hx Tablets 50mg 25tab 1 po q 6 346.90 Bk F. /2009 s hours pain MD Wallace - prn 05/12 Work Note 12/29 Hx chaim will be Bk F. /2009 off work for MD Wallace - 2 days 05/12 Erythromycin 10/[address] 333mg 20tab 1 po bid with 466.00 Bk F. Base s food MD Wallace - 11/12 Cipro 12/19 Hx Tablets 500mg 14tab 1 po bid 466.00 Sybil Svetlana Antunez M.D. 10/06 Robitussin 12/19 Hx Liquid 4Oz 1-2 teaspoon 466.00 Sybil With Codeine po q 4-6 hrs Wallace - for cough M.Abhinav 10/06 Fexofenadine 12/19 Hx Tablets 60mg 60tab 1 po bid 466.00 Sybil HCL Svetlana Antunez M.D. 11/12 Erythromycin 12/19 Hx Tablets 500mg 14tab 1 po bid 466.00 Sybil Base Svetlana Antunez M.D. 10/06 Medical Excuse 12/19 Hx the above is 466.00 excused from Wallace - work and [employer] A 10/06 school december 23, 2008 Zithromax 11/28 Hx Tablets 250mg 6tabs 2 po day 1, 1 Elyn po qd x days MD Felix - 2-5 10/06 Paxil 09/03 Hx Tablets 20mg 90tab 1 by mouth F41.1 Sybil s every day Svetlana Gonsalez M.D. 10/06 Erthromycin 01/21 Hx Tablets 500mg 40tab 1 po qid 382.9 Bk F. /2007 lenka Gonsalez MD - 09/03 May Return To 10/13 Hx Patient May Elyn Work /2006 Return To MD Felix - Work With No 09/03 Pce 11/02 Hx Tablets 500mg 28tab one po bid x Bk F. /2006 s 14days MD Wallace - 11/03 Tamiflu 11/01 Hx Capsules 75mg 14cap 1 po bid 487.1 s MD Felix - 10/13 Anucort-HC 11/01 Hx Suppositor 25mg 20uni 1 pr after BM 487.1 ts or prn pain Svetlana Gonsaelz M.D. 11/05 Ultracet 11/01 Hx Tablets 325mg;37. 30tab one po q 6 487.1 5 mg s hr.prn Svetlana Gonsalez M.D. 11/05 Pce 09/21 Hx Tablets 500mg 20tab one po bid x 490 Bk F. /2005 s 10days MD Wallace - 11/04 Meclizine 08/30 Hx Tablets 25mg 30tab 1 po tid prn 780.40 s MD Felix - 10/13 Ultram 08/30 Hx Tablets 50mg 30tab one every 6 s hours as MD Felix - needed for 10/13 Pce 10/26 Hx Tablets 500mg 20tab One PO bid X 490 Bk F. /2005 s 10Days MD Wallace - 05/09 Prilosec 10/25 Hx Capsules 40mg 100ca 1 PO qd prn Bk F. /2005 ps MD Wallace - 10/26 Flonase 10/25 Hx Suspension 50mcg/Spr 1unit 1 Malcom To Bk F. /2005 ay s Each Nare qd MD Wallace - 05/09 Paxil 10/25 Hx Tablets 20mg 100ta 1 po qd Elyn bs MD Felix - 09/03 Kiya 10/25 Hx Tablets 60mg 60tab 1 PO bid Bk F. /2005 s MD Wallace - 05/09 Ultram 10/25 Hx Tablets 50mg 30tab 1-2 tabs po q Bk F. /2005 s 6 hrs prn MD Wallace - 05/09 Viagra 10/25 Hx Tablets 100mg 6tabs One PO prn AD Bk F. /2005 MD Wallace - 05/09 Imitrex 10/25 Hx Tablets 100mg 6tabs 1 po qd prn Bk F. /2005 leslie Gonsalez MD - 05/09 Medications Administered in Office Medication Date Status Form Strength Qnty SIG Indications Ordering Provider PPD Administered Injection Bk Brizuela 9 MD Wallace Immunizations CPT Code Status Date Vaccine Lot # [id number] Given 11/12/2009 Tetanus Shot [id number] Given 10/17/1997 DT Immunization DIP/Tet (History Only) Vital Signs Date Vital Result Comment 03/29/2018 BP Systolic 156 mmHg BP Diastolic 98 mmHg Heart Rate 88 /min Body Temperature 98.5 F Height 74 inches 6'2" Weight 225.00 lb BMI (Body Mass Index) 28.9 kg/m2 O2 % BldC Oximetry 96 % 12/12/2017 BP Systolic 120 mmHg BP Diastolic 74 mmHg Body Temperature 98.3 F Height 74 inches 6'2" Weight 222.00 lb BMI (Body Mass Index) 28.5 kg/m2 10/18/2017 BP Systolic 142 mmHg BP Diastolic [...] Test Date Test Result H/L Range Note Laboratory test finding 12/03/2017 Rapid Strep Molecular Negative Negative 1 Rapid Influenza A & B 12/03/2017 Influenza A Molecular NEGATIVE Negative 2 Molecular Influenza B Molecular POSITIVE Negative Order 12/22/2016 MRI L Spine W/O Contrast [...] mm/Hr 0-20 Anti Nuclear Antibody 0.1 U 3 BMP W/O Egfr 01/24/2015 Sodium 140 mmol/L 135-146 4 Potassium 4.6 mmol/L 3.5-5.3 4 Chloride 106 mmol/L 98-110 4 Carbon Dioxide 22 mmol/L 19-30 4 Calcium 9.4 mg/dL 8.6-10.3 4 Glucose 99 mg/dL 65-99 4, 5 Urea Nitrogen 17 mg/dL 7-25 4 Creatinine 1.11 mg/dL 0.60-1.35 4 BUN/Creatinine Ratio 15.4 6-22 4 CBC W/ Diff & PLT 01/24/2015 WBC 3.9 thous/L 3.8-10.8 4 RBC 4.95 mill/L 4.20-5.80 4 Hemoglobin 15.1 g/dL 13.2-17.1 4 Hematocrit 45.8 % 38.5-50.0 4 MCV 92.7 FL 80.0-100.0 4 MCH 30.5 pg 27.0-33.0 4 MCHC 32.9 g/dL 32.0-36.0 4 RDW 13.6 % 11.0-15.0 4 Platelet Count 298 thous/L 140-400 4 Platelet Sufficiency PENDING 4 Neutrophils,Absolute 2450 cells/L 2349-4262 4 Bands,Absolute PENDING 4 Metamyelocytes,Absolute PENDING 4 Myelocytes,Absolute PENDING 4 Promyelocytes,Absolute PENDING 4 Lymphocytes,Absolute 1170 cells/L 850-3900 4 Monocytes,Absolute 280 cells/L 200-950 4 Eosinophils,Absolute 30 cells/L 15-500 4 Basophils,Absolute 20 cells/L 0-200 4 Blast Cells,Absolute PENDING 4 Nucleated RBC,Absolute PENDING 4 Total Neutrophils,% 62 % Not Established 4 Bands,% PENDING 4 Metamyelocytes,% PENDING 4 Myelocytes,% PENDING 4 Promyelocytes,% PENDING 4 Total Lymphocytes,% 30 % Not Established 4 Monocytes,% 7 % Not Established 4 Eosinophils,% 1 % Not Established 4 Basophils,% 1 % Not Established 4 Blasts,% PENDING 4 Nucleated RBC PENDING 4 RBC Morphology PENDING 4 Anisocytosis PENDING 4 Poikilocytosis PENDING 4 Microcytosis PENDING 4 Macrocytosis PENDING 4 Polychromasia PENDING 4 Hypochromasia PENDING 4 Target Cells PENDING 4 Basophilic Stippling PENDING 4 Comment PENDING 4 Lipid Panel 01/24/2015 Cholesterol 183 mg/dL 125-200 4 HDL Cholesterol 40 mg/dL > Or=40 4 Cholesterol/HDL Ratio 4.6 < Or=5.0 4 LDL Chol,Calculated 114 mg/dL <130 4, 6 Triglycerides 143 mg/dL <150 4 Non-HDL Cholesterol 143 mg/dL 4, 7 TSH & T4,Free 01/24/2015 TSH 0.92 mIU/L 0.40-4.50 4 T4,Free 1.0 ng/dL 0.8-1.8 4 Laboratory test finding 01/24/2015 PSA,Total 0.3 NG/ML 0.0-4.0 4, 8 Comp Metabolic Panel 12/06/2013 Sodium 140 mmol/L 135-146 4 Potassium 4.2 mmol/L 3.5-5.3 4 Chloride 103 mmol/L 98-110 4 Carbon Dioxide 27 mmol/L 19-30 4 Calcium 9.7 mg/dL 8.6-10.3 4 Alkaline Phosphatase 53 U/L 40-115 4 Ast 16 U/L 10-40 4 Alt 24 U/L 9-46 4 Bilirubin,Total 0.4 mg/dL 0.2-1.2 4 Glucose 85 mg/dL 65-99 4, 9 Urea Nitrogen 16 mg/dL 7-25 4 Creatinine 1.14 mg/dL 0.60-1.35 4 BUN/Creatinine Ratio 13.6 6-22 4 Protein,Total 7.4 g/dL 6.1-8.1 4 Albumin 4.8 g/dL 3.6-5.1 4 Globulin,Calculated 2.6 g/dL 1.9-3.7 4 A/G Ratio 1.9 1.0-2.5 4 Egfr Non-Afr. Sudanese 76 ML/MIN/1.73M2 > Or=60 4 Egfr 88 ML/MIN/1.73M2 > Or=60 4 CBC W/ Diff & PLT 12/06/2013 WBC 4.4 thous/L 3.8-10.8 4 RBC 4.89 mill/L 4.20-5.80 4 Hemoglobin 14.7 g/dL 13.2-17.1 4 Hematocrit 44.3 % 38.5-50.0 4 MCV 90.7 FL 80.0-100.0 4 MCH 30.1 pg 27.0-33.0 4 MCHC 33.2 g/dL 32.0-36.0 4 RDW 12.8 % 11.0-15.0 4 Platelet Count 336 thous/L 140-400 4 Neutrophils,Absolute 2640 cells/L 7022-8006 4 Lymphocytes,Absolute 1330 cells/L 850-3900 4 Monocytes,Absolute 380 cells/L 200-950 4 Eosinophils,Absolute 40 cells/L 15-500 4 Basophils,Absolute 20 cells/L 0-200 4 Total Neutrophils,% 60 % Not Established 4 Total Lymphocytes,% 30 % Not Established 4 Monocytes,% 9 % Not Established 4 Eosinophils,% 1 % Not Established 4 Basophils,% 0 % Not Established 4 TSH & T4,Free 12/06/2013 TSH 0.76 mIU/L 0.40-4.50 4 T4,Free 1.1 ng/dL 0.8-1.8 4 Laboratory test finding 12/06/2013 PSA,Total 0.4 NG/ML 0.0-4.0 4, 10 Lipid Panel 12/06/2013 Cholesterol 199 mg/dL 125-200 4 HDL Cholesterol 41 mg/dL > Or=40 4 Cholesterol/HDL Ratio 4.9 < Or=5.0 4 LDL Chol,Calculated 114 mg/dL <130 4, 11 Triglycerides 221 mg/dL High <150 4 Non-HDL Cholesterol 157 mg/dL 4, 12 Comprehensive Metabolic Panel 12/23/2011 Glucose 94 mg/dL 76-115 BUN 14 mg/dL 5-23 Creatinine 1.0 mg/dL 0.5-1.4 Glom Filtration Rate, Estimate >60 mL/min >60 If >60 mL/min >60 13 BUN/Creat 14.0 ratio Sodium 143 mmol/L 136-145 [...] % 33.0-73.0 Lymph % 33.8 % 17.0-56.0 [place] % 9.9 % 0.0-10.0 Eo% 1.6 % 0.0-5.0 Bas% 0.5 % 0.1-1.0 Neut# 2.02 K/uL 1.8-7.0 Lymph # 1.26 K/uL 1.2-4.0 [place] # 0.37 K/uL 0.0-0.6 Eos # 0.06 K/uL 0.0-0.5 Baso # 0.02 K/uL Low 0.1-0.2 Comp Metabolic Panel 10/29/2009 Sodium 142 mmol/L 135-146 4 Potassium 4.3 mmol/L 3.5-5.3 4 Chloride 106 mmol/L 98-110 4 Carbon Dioxide 26 mmol/L 21-33 4 Calcium 9.5 mg/dL 8.6-10.2 4 Alkaline Phosphatase 56 U/L 40-115 4 Ast 13 U/L 10-40 4 Alt 21 U/L 9-60 4 Bilirubin,Total 0.5 mg/dL 0.2-1.2 4 Glucose 102 mg/dL High 65-99 4, 14 Urea Nitrogen 18 mg/dL 7-25 4 Creatinine 1.14 mg/dL 0.78-1.34 4 BUN/Creatinine Ratio 15.9 6-22 4 Protein,Total 7.3 g/dL 6.2-8.3 4 Albumin 4.7 g/dL 3.6-5.1 4 Globulin,Calculated 2.6 g/dL 2.1-3.7 4 A/G Ratio 1.9 1.0-2.1 4 Egfr Non-Afr. Sudanese >60 ML/MIN/1.73M2 > Or=60 4 Egfr >60 ML/MIN/1.73M2 > Or=60 4 CBC W/ Diff & PLT 10/29/2009 WBC 3.8 thous/L 3.8-10.8 4 RBC 4.69 mill/L 4.20-5.80 4 Hemoglobin 14.9 g/dL 13.2-17.1 4 Hematocrit 43.6 % 38.5-50.0 4 MCV 93.0 FL 80.0-100.0 4 MCH 31.7 pg 27.0-33.0 4 MCHC 34.1 g/dL 32.0-36.0 4 RDW 13.5 % 11.0-15.0 4 Platelet Count 235 thous/L 140-400 4 Platelet Sufficiency NORMAL Normal 4 Neutrophils,Absolute 2190 cells/L 1905-2533 4 Bands,Absolute DNR cells/L 0-750 4 Metamyelocytes,Absolute DNR cells/L 0 4 Myelocytes,Absolute DNR cells/L 0 4 Promyelocytes,Absolute DNR cells/L 0 4 Lymphocytes,Absolute 1190 cells/L 850-3900 4 Monocytes,Absolute 360 cells/L 200-950 4 Eosinophils,Absolute 50 cells/L 15-500 4 Basophils,Absolute 30 cells/L 0-200 4 Blast Cells,Absolute DNR cells/L 0 4 Nucleated RBC,Absolute DNR cells/L 0 4 Total Neutrophils,% 58 % 38-80 4 Bands,% DNR % 0-10 4 Metamyelocytes,% DNR % 4 Myelocytes,% DNR % 4 Promyelocytes,% DNR % 4 Total Lymphocytes,% 31 % 15-49 4 Monocytes,% 9 % 0-13 4 Eosinophils,% 1 % 0-8 4 Basophils,% 1 % 0-2 4 Blasts,% DNR % 4 Nucleated RBC DNR /100WBC 0 4 RBC Morphology NORMAL 4 Anisocytosis DNR 4 Poikilocytosis DNR 4 Microcytosis DNR 4 Macrocytosis DNR 4 Polychromasia DNR 4 Hypochromasia DNR 4 Target Cells DNR 4 Basophilic Stippling DNR 4 Comment DNR 4 TSH & T4,Free 10/29/2009 TSH,3RD Generation 1.23 mIU/L 0.40-4.50 4 T4,Free 1.1 ng/dL 0.8-1.8 4 Lipid Panel 10/29/2009 Cholesterol 172 mg/dL 125-200 4 HDL Cholesterol 43 mg/dL > Or=40 4 Triglycerides 75 mg/dL <150 4 Cholesterol/HDL Ratio 4.0 < Or=5.0 4 LDL Chol,Calculated 114 mg/dL <130 4, 15 Laboratory test finding 10/29/2009 PSA,Total 0.3 NG/ML 0.0-4.0 4, 16 Laboratory test finding 2007 CK 80 U/L 26-190 Troponin-I 0.0 NG/ML 0.0-0.6 17 Liver Function Tests 10/04/2007 Total Protein 6.4 g/dL 6.3-8.0 18 Albumin 4.0 g/dL 3.5-5.0 18 Bilirubin,Total 0.4 mg/dL 0.2-1.2 18 Bilirubin,Direct 0.1 mg/dL 0.1-0.4 18 Bilirubin,Indirect 0.3 mg/dL 0.0-0.9 18 Sgot/Ast 11 U/L Low 16-40 18 SGPT/Alt 34 U/L 30-65 18 Alkaline Phosphatase 53 U/L 50-136 18 LDL Cholesterol Profile 10/04/2007 Cholesterol 153 mg/dL 120-200 18 Triglycerides 132 mg/dL 0-210 18 HDL Cholesterol 30 mg/dL Low 32-96 18 LDL-Cholesterol 97 mg/dL 62-185 18 Laboratory test finding 10/04/2007 Amylase 47 U/L 18-98 18 Lipase 246 U/L 114-286 18 CK 105 U/L 26-190 18 Troponin-I 0.0 NG/ML 0.0-0.6 18, 19 Vitamin B12 214 pg/mL 208-964 18 Folic Acid 16.4 ng/mL High 6.0-15.4 18 Thyroid Stim Hormone 1.58 uIU/mL 0.49-4.67 18 CBC 10/04/2007 White Blood Count 4.0 K/uL [...] Mean Platelet Volume 6.7 fl 6.6-10.6 18 CBS W/Automated Diff 10/04/2007 White Blood Count 5.8 K/uL 3.4-10.5 20 Red Blood Count 4.59 M/uL 4.20-5.80 20 Hemoglobin 14.2 gm/dL 12.8-17.0 20 Hematocrit 41.7 % 38.0-48.0 20 Mean Cell Volume 90.8 fL 80.0-96.0 20 Mean Corpuscular HGB 31.1 pg 27.0-33.0 20 Mean Corpuscular HGB Conc 34.2 g/dL 31.7-36.0 20 Platelet Count 283 K/uL 150-400 20 Red Cell Distri Width %CV 12.5 % 11.6-15.8 20 Mean Platelet Volume 8.1 fl 6.6-10.6 20 Neut% 64.3 % 33.0-73.0 20 Lymph % 22.7 % 17.0-56.0 20 [place] % 9.5 % 0.0-10.0 20 Eo% 0.8 % 0.0-5.0 20 Bas% 0.4 % 0.1-1.0 20 [place]% 2.3 % 0.0-4.0 20 Neut# 3.7 K/uL 1.8-7.0 20 Lymph # 1.3 K/uL 1.2-4.0 20 [place] # 0.6 K/uL 0.0-0.6 20 Eos # 0.1 K/uL 0.0-0.5 20 Baso # 0.0 K/uL Low 0.1-0.2 20 Calos# 0.1 0.0-1.5 20 Laboratory test finding 10/04/2007 CK 146 U/L 26-190 20 Troponin-I 0.0 NG/ML 0.0-0.6 20, 21 Basic Metabolic Panel 10/04/2007 Glucose 136 mg/dL High 76-115 20 BUN 22 mg/dL 5-23 20 Creatinine 1.3 mg/dL 0.5-1.4 20 BUN/Creat 16.9 20 Sodium 140 mEq/L 136-145 20 Potassium 4.3 mEq/L 3.5-5.1 20 Chloride 106 mEq/L 98-107 20 Carbon Dioxide 28 mEq/L 21-32 20 Anion Gap 10 mEq/L 8-16 20 Calcium 9.0 mg/dL 8.5-10.1 20 Lipid Panel 04/29/2006 Cholesterol 198 mg/dL <200 22 HDL Cholesterol 46 mg/dL >40 22, 23 Cholesterol/HDL Ratio 4.3 <5.0 22 LDL Chol,Calculated 126 mg/dL <130 22, 24 Triglycerides 131 mg/dL <150 22 TSH & T4,Free 04/29/2006 TSH 0.71 mU/L 0.40-5.50 22 T4,Free 1.2 ng/dL 0.8-1.8 22 Comp Metabolic Panel 04/29/2006 Sodium 144 mmol/L 135-146 22 Potassium 5.0 mmol/L 3.5-5.3 22 Chloride 108 mmol/L 98-110 22 Carbon Dioxide 26 mmol/L 21-33 22 Calcium 10.0 mg/dL 8.5-10.4 22 Alkaline Phosphatase 50 U/L 20-125 22 Ast 14 U/L 3-50 22 Alt 19 U/L 3-60 22 Bilirubin,Total 0.6 mg/dL 0.2-1.5 22 Glucose 95 mg/dL 65-99 22, 25 Urea Nitrogen 19 mg/dL 7-25 22 Creatinine 1.2 mg/dL 0.5-1.4 22 BUN/Creatinine Ratio 15.4 6-25 22 Protein,Total 7.5 g/dL 6.0-8.3 22 Albumin 4.9 g/dL 3.7-5.1 22 Globulin,Calculated 2.6 g/dL 2.2-4.2 22 A/G Ratio 1.9 0.8-2.0 22 GFR Estimated >60 ML/MIN/1.7 >59 22, 26 CBC W/ Diff & PLT 04/29/2006 WBC 3.9 thous/L 3.8-10.8 22 RBC 4.88 mill/L 4.20-5.80 22 Hemoglobin 14.9 g/dL 13.2-17.1 22 Hematocrit 44.4 % 38.5-50.0 22 MCV 91.0 FL 80.0-100.0 22 MCH 30.6 pg 27.0-33.0 22 MCHC 33.6 g/dL 32.0-36.0 22 RDW 14.6 % 11.0-15.0 22 Platelet Count 294 thous/L 140-400 22 Platelet Sufficiency NORMAL 22 Neutrophils,Absolute 2350 cells/L 5365-8674 22 Bands,Absolute DNR cells/L 0-750 22 Metamyelocytes,Absolute DNR cells/L 0 22 Myelocytes,Absolute DNR cells/L 0 22 Promyelocytes,Absolute DNR cells/L 0 22 Lymphocytes,Absolute 1130 cells/L 850-3900 22 Monocytes,Absolute 360 cells/L 200-950 22 Eosinophils,Absolute 40 cells/L 15-500 22 Basophils,Absolute 10 cells/L 0-200 22 Blast Cells,Absolute DNR cells/L 0 22 Nucleated RBC,Absolute DNR cells/L 0 22 Total Neutrophils,% 61 % 38-80 22 Bands,% DNR % 0-10 22 Metamyelocytes,% DNR % 22 Myelocytes,% DNR % 22 Promyelocytes,% DNR % 22 Total Lymphocytes,% 29 % 15-49 22 Monocytes,% 9 % 0-13 22 Eosinophils,% 1 % 0-8 22 Basophils,% 0 % 0-2 22 Blasts,% DNR % 22 Nucleated RBC DNR /100WBC 0 22 RBC Morphology NORMAL 22 Anisocytosis DNR 22 Poikilocytosis DNR 22 Microcytosis DNR 22 Macrocytosis DNR 22 Polychromasia DNR 22 Hypochromasia DNR 22 Target Cells DNR 22 Basophilic Stippling DNR 22 Comment DNR 22 1 Window Tinter: [id number] Window Tinter: [id number] REFERENCE VALUE <=1.0 (Negative) Test Performed by: [place] [address] [employer] Hoister: Eamon Hardin II, M.D., Ph.D. 4 FASTING 5 GLUCOSE REFERENCE RANGE BASED ON FASTING SPECIMEN. 6 LDL-CHOLESTEROL RISK CATEGORY* GOAL VERY HIGH (E.G. DIABETES + CVD) <70 MG/DL HIGH (DIABETICS; CHD RISK EQUIVALENTS) <100 MG/DL MODERATELY HIGH (MULTIPLE(2+) RISK FACTORS) <130 MG/DL 0 TO 1 RISK FACTORS <160 MG/DL * NCEP REPORT. CIRCULATION 2004; 110: 227-239 7 Target for non-HDL cholesterol is 30 mg/dL higher than LDL cholesterol target. 8 THIS TEST WAS PERFORMED USING THE [employer] CHEMILUMINESCENT METHOD. VALUES OBTAINED FROM DIFFERENT ASSAY METHODS CANNOT BE USED INTERCHANGEABLY. PSA LEVELS, REGARDLESS OF VALUE, SHOULD NOT BE INTERPRETED ABSOLUTE EVIDENCE OF THE PRESENCE OR ABSENCE OF DISEASE. 9 GLUCOSE REFERENCE RANGE BASED ON FASTING SPECIMEN. 10 THIS TEST WAS PERFORMED USING THE [employer] CHEMILUMINESCENT METHOD. VALUES OBTAINED FROM DIFFERENT ASSAY METHODS CANNOT BE USED INTERCHANGEABLY. PSA LEVELS, REGARDLESS OF VALUE, SHOULD NOT BE INTERPRETED ABSOLUTE EVIDENCE OF THE PRESENCE OR ABSENCE OF DISEASE. 11 LDL-CHOLESTEROL RISK CATEGORY* GOAL VERY HIGH (E.G. DIABETES + CVD) <70 MG/DL HIGH (DIABETICS; CHD RISK EQUIVALENTS) <100 MG/DL MODERATELY HIGH (MULTIPLE(2+) RISK FACTORS) <130 MG/DL 0 TO 1 RISK FACTORS <160 MG/DL * NCEP REPORT. CIRCULATION 2004; 110: 227-239 12 Target for non-HDL cholesterol is 30 mg/dL higher than LDL cholesterol target. 13 Note: Persistent reduction for 3 months or more in an eGFR <60 mL/min/1.73 m2 defines CKD. Patients with eGFR values >/=60 mL/min/1.73 m2 may also have CKD if evidence of persistent proteinuria is present. The original MDRD equation for estimated GFR is not valid for patients less than 18 years of age. Additional information may be found at [email or web address]. 14 GLUCOSE REFERENCE RANGE BASED ON FASTING SPECIMEN. 15 LDL-CHOLESTEROL RISK CATEGORY* GOAL VERY HIGH (E.G. DIABETES + CVD) <70 MG/DL HIGH (DIABETICS; CHD RISK EQUIVALENTS) <100 MG/DL MODERATELY HIGH (MULTIPLE(2+) RISK FACTORS) <130 MG/DL 0 TO 1 RISK FACTORS <160 MG/DL * NCEP REPORT. CIRCULATION 2004; 110: 227-239 16 PSA VALUES FROM DIFFERENT ASSAY METHODS CANNOT BE USED INTERCHANGEABLY. THIS ASSAY WAS PERFORMED USING THE [employer] CHEMILUMINESCENCE METHOD. SERUM PSA LEVELS SHOULD NOT BE INTERPRETED ABSOLUTE EVIDENCE OF THE PRESENCE OR ABSENCE OF DISEASE. 17 0 - 0.6 NG/ML: NO EVIDENCE OF MYOCARDIAL INJURY 0.7 - 1.5 NG/ML: MILD ELEVATION, SUGGESTING POSSIBLE MYOCARDIAL INJURY > 1.5 NG/ML: CONSISTENT WITH MYOCARDIAL INJURY 18 Specimen: [id number] - TESTS: B12, FOL, TSH IS THE PATIENT FASTING? FASTING TEST: B12 QUERY: IS THE PATIENT FASTING? TEST: FOL QUERY: IS THE PATIENT FASTING? TEST: TSH 19 0 - 0.6 NG/ML: NO EVIDENCE OF MYOCARDIAL INJURY 0.7 - 1.5 NG/ML: MILD ELEVATION, SUGGESTING POSSIBLE MYOCARDIAL INJURY > 1.5 NG/ML: CONSISTENT WITH MYOCARDIAL INJURY 20 Specimen: [id number] - TESTS: C7, CPK, TROP SLI HEMOLYZED TEST: C7 QUERY : IS THE PATIENT FASTING? QUERY: CARD 1=GLU, BUN, CRE, NA, K, CL, CO2, CALCIUM + GAP TEST: CPK TEST: TROP 21 0 - 0.6 NG/ML: NO EVIDENCE OF MYOCARDIAL INJURY 0.7 - 1.5 NG/ML: MILD ELEVATION, SUGGESTING POSSIBLE MYOCARDIAL INJURY > 1.5 NG/ML: CONSISTENT WITH MYOCARDIAL INJURY 22 FASTING 23 HDL REFERENCE RANGES ADULTS (20 YEARS & OLDER) DESIRABLE: > OR=60 MG/DL HIGHER RISK: <40 MG/DL 24 LDL-CHOLESTEROL RISK CATEGORY* GOAL VERY HIGH (E.G. DIABETES + CVD) <70 MG/DL HIGH (DIABETICS; CHD RISK EQUIVALENTS) <100 MG/DL MODERATELY HIGH (MULTIPLE(2+) RISK FACTORS) <130 MG/DL 0 TO 1 RISK FACTORS <160 MG/DL * NCEP REPORT. CIRCULATION 2004; 110: [phone] 25 GLUCOSE REFERENCE RANGE BASED ON FASTING SPECIMEN. 26 THE GFR ESTIMATE IS NOT ADJUSTED FOR RACE, IF THE PATIENT'S RACE IS -PERUVIAN, THE GFR ESTIMATE MUST BE MULTIPLIED BY A FACTOR OF 1.21. Procedures Date CPT Code Description Status 04/12/2016 02469 Non-Invcorrotid/Comp /Bilat Study Completed 04/12/2016 56465 Echocardiography Completed 01/24/2015 78545 Spirometry Graphic Record/Max Voluntary Vent Completed 01/24/2015 87918 EKG-Tracing & Report Completed 01/23/2015 53913 Non-Invcorrotid/Comp /Bilat Study Completed 01/23/2015 58630 Echocardiography Completed 12/06/2013 99259 Spirometry Graphic Record/Max Voluntary Vent Completed 12/06/2013 25568 Holter Monitor Office Completed 12/06/2013 59764 EKG-Tracing & Report Completed 11/19/2013 19960 Non-Invcorrotid/Comp /Bilat Study Completed 11/19/2013 78915 Echocardiography Completed 12/23/2011 61826 EKG-Tracing & Report Completed 12/20/2011 40269 Echocardiography Completed 10/29/2009 50251 EKG-Tracing & Report Completed 10/29/2009 81504 Holter Monitor Office Completed 10/29/2009 94388 PFT Evaluation Completed 10/27/2009 71892 Echocardiography Completed 12/14/2006 85578 PFT Evaluation Completed 10/31/2006 58198 PFT Evaluation Completed 04/29/2006 89231 Spirometry Graphic Record/Max Voluntary Vent Completed 04/29/2006 03308 Non-Invcorrotid/Comp /Bilat Study Completed 04/29/2006 78295 Doppler Color Flow Velocity Completed 04/29/2006 04996 Doppler/ECHO Completed 04/29/2006 48699 ECHO-2D W/Wo M-Mode Completed 04/29/2006 54210 Holter Monitor Office Completed 04/29/2006 59669 EKG-Tracing & Report Completed 06/03/2004 77133 Doppler Color Flow Velocity Completed 06/03/2004 95627 Doppler/ECHO Completed 06/03/2004 68235 ECHO-2D W/Wo M-Mode Completed 05/22/2004 60297 EKG-Tracing & Report Completed Encounters Type Date Location Provider CPT E/M Dx Office Visit 12/12/2017 3:30p [place] [address] R05 J10.00 J20.9 Office Visit 10/18/2017 3:30p [place] [address] K21.9 G25.0 G43.909 E78.5 Office Visit 07/18/2017 11:30a [place] [address] J20.9 Office Visit 06/15/2017 11:20a [place] [address] A09 L71.9 Office Visit 03/01/2017 3:30p [place] [address] J20.9 Office Visit 12/20/2016 1:40p [place] [address] R09.1 Office Visit 12/13/2016 3:20p [place] [address] R09.1 Office Visit 12/06/2016 3:30p [place] [address] R09.1 Office Visit 07/26/2016 11:40a [place] [address] K21.9 I34.0 Office Visit 07/19/2016 3:00p [place] [address] J01.90 Office Visit 07/09/2016 4:00p [place] [address] J01.90 Office Visit 05/18/2016 3:00p [place] [address] I34.0 K21.9 G25.0 K58.0 G43.909 Office Visit 05/05/2016 10:50a [place] [address] I34.0 I65.23 K21.9 F41.1 G25.0 K58.0 G43.909 R10.9 Z00.00 Office Visit 03/02/2016 1:30p [place] [address] E78.5 K21.9 F41.1 G25.0 Office Visit 10/06/2015 3:00p [place] [address] F41.1 E78.5 I34.0 K21.9 Office Visit 08/11/2015 3:30p [place] [address] K58.0 Office Visit 07/31/2015 3:30p Main Office Sybil Gonsalez M.D. 39826 J20.2 Office Visit 03/03/2015 11:40a [place] [address] 465.9 Office Visit 02/25/2015 11:30a [place] [address] 465.9 Office Visit 02/11/2015 11:20a [place] [address] 272.4 300.02 530.81 333.1 Office Visit 01/07/2015 11:50a [place] [address] 272.4 424.0 300.02 Office Visit 07/30/2014 3:10p [place] [address] 272.4 424.0 300.02 Office Visit 04/24/2014 11:30a [place] [address] 272.4 424.0 530.81 300.02 Office Visit 12/12/2013 2:00p [place] [address] 272.4 272.40 424.0 530.81 300.02 346.90 Office Visit 10/30/2013 2:40p [place] [address] 333.1 530.81 300.02 Office Visit 10/26/2013 10:30a [place] [address] 461.8 333.1 300.02 GENERAL Office Visit 06/19/2013 3:20p [place] [address] 466.0 Office Visit 05/29/2013 3:00p [place] [address] 785.2 300.02 Office Visit 11/09/2012 11:00a Main Office Sybil Gonsalez M.D. 44000 466.0 Office Visit 10/03/2012 10:10a [place] [address] 466.0 Office Visit 06/26/2012 3:30p [place] [address] 466.0 Office Visit 04/25/2012 2:20p [place] [address] 466.0 Office Visit 04/04/2012 1:40p [place] [address] 333.1 272.4 530.81 346.90 Office Visit 12/14/2011 1:40p [place] [address] 578.1 569.42 272.40 785.2 784.0 272.00 530.81 465.9 Office Visit 10/14/2011 11:15a [place] [address] 465.9 GENERAL Office Visit 07/12/2011 11:20a [place] [address] 784.0 Office Visit 05/04/2011 2:40p [place] [address] 466.0 272.40 785.2 784.0 272.00 530.81 Office Visit 11/24/2010 2:20p [place] [address] 466.0 Office Visit 05/12/2010 10:00a [place] [address] 346.90 272.4 424.0 Office Visit 02/02/2010 1:45p [place] [address] 461.9 466.0 GENERAL Office Visit 01/21/2010 10:30a [place] [address] 462 Office Visit 01/05/2010 10:10a [place] [address] 466.0 Office Visit 12/29/2009 11:50a [place] [address] 346.90 Office Visit 11/12/2009 11:50a [place] [address] 785.10 272.4 493.90 424.0 V03.7 Office Visit 10/06/2009 11:40a [place] [address] 466.00 Office Visit 12/19/2008 12:00p Main Office Sybil Gonsalez M.D. 31439 466.00 Office Visit 11/28/2008 2:45p [place] [address] 460.00 Office Visit 11/18/2008 11:30a [place] [address] GENERAL 333.1 300.02 V03.2 346.90 Office Visit 09/03/2008 3:10p [place] [address] 333.1 300.02 Office Visit 01/22/2008 2:40p [place] [address] 382.9 Office Visit 10/13/2007 11:30a [place] [address] 789.00 Office Visit 08/17/2007 11:20a [place] [address] 493.90 455.6 785.9 333.1 346.90 424.0 Office Visit 11/09/2006 11:30[place] [address] 493.90 682.90 490 455.6 Office Visit 11/02/2006 3:30p [place] [address] 682.90 272.00 784.0 530.81 Office Visit 11/01/2006 3:15p Main Office Sybil Gonsalez M.D. 63207 487.1 455.6 Office Visit 09/21/2006 3:20p [place] [address] 490 Office Visit 08/30/2006 2:20p [place] [address] 780.40 Office Visit 05/09/2006 9:00a [place] [address] 785.10 785.9 530.81 477.9 333.1 302.72 346.90 278.00 Office Visit 10/26/2005 3:00p [place] [address] 490 272.40 272.00 477.9 530.81 333.1 302.72 346.90 786.59 592.0 729.1 Office Visit 10/27/2004 3:30p [place] [address] 272.40 272.00 Office Visit 07/28/2004 3:40p [place] [address] 460.00 Office Visit 05/25/2004 3:20p [place] [address] 784.0 Plan of Care Future Appointment(s):04/18/2018 10:30 am - Bk Gonsalez MD at Main [id number] - Casimiro [place] MDJ20.9 Acute bronchitis, unspecifiedNew Medication: Levofloxacin 500 mgR05 IrbisR66.90 Acute sinusitis, unspecifiedAllComments:FOR ABOVE DX:SALINE NASAL RINSELEVAQUIN 500MG Q DAY 10 DAYS (MULT ALLERGIES, OUT IN SUN, THEREFORE NO DOXY) POSSIBILITY OF TENDON RUPTURE WITH LEVAQUIN REVIEWED W PATIENT (RARE)RTO NEXT WEEK DR. NAVA RE-EVALUATION
--- OUTSIDE RECORDS SUMMARY | 2018-04-19 13:56 | XMS REPORT ---
:1965 External Reference #:[id number] Author Organization [facility] Address [address] [place] [address] Phone [phone] Care Team Providers Name Role Phone Bk Gonsalez MD Primary Care Physician Unavailable Payers Type Date Identification Numbers Payment Provider Subscriber Commercial Policy Number: [id number] Tit[place] Chaim Rainey PayID: [id number] [address] [place] [address] Problems Date Description Provider Status Onset: 10/08/2005 [...] mouth F41.1 Sybil s every day Svetlana Gonsaelz M.D. 10/06 Erthromycin 01/21 Hx Tablets 500mg [...] Flonase 10/25 Hx Suspension 50mcg/Spr 1unit 1 [place] To Bk F. /2005 ay s Each [...] CPT Code Status Date Vaccine Lot # 44443 Given 11/12/2009 Tetanus Shot [id number] Given 10/17/1997 DT Immunization DIP/Tet (History Only) [...] Platelet Sufficiency PENDING 4 Neutrophils,Absolute 2450 cells/L 9454-3984 4 Bands,Absolute PENDING 4 Metamyelocytes,Absolute PENDING 4 [...] A/G Ratio 1.9 1.0-2.5 4 Egfr Non-Afr. Somali 76 ML/MIN/1.73M2 > Or=60 4 Egfr 88 [...] 336 thous/L 140-400 4 Neutrophils,Absolute 2640 cells/L 9811-4184 4 Lymphocytes,Absolute 1330 cells/L 850-3900 4 Monocytes,Absolute [...] % 33.0-73.0 Lymph % 33.8 % 17.0-56.0 [place] % 9.9 % 0.0-10.0 Eo% 1.6 % 0.0-5.0 Bas% 0.5 % 0.1-1.0 Neut# 2.02 K/uL 1.8-7.0 Lymph # 1.26 K/uL 1.2-4.0 [place] # 0.37 K/uL 0.0-0.6 Eos # 0.06 [...] A/G Ratio 1.9 1.0-2.1 4 Egfr Non-Afr. Somali >60 ML/MIN/1.73M2 > Or=60 4 Egfr >60 [...] Sufficiency NORMAL Normal 4 Neutrophils,Absolute 2190 cells/L 9369-8599 4 Bands,Absolute DNR cells/L 0-750 4 Metamyelocytes,Absolute [...] 20 Lymph % 22.7 % 17.0-56.0 20 [place] % 9.5 % 0.0-10.0 20 Eo% 0.8 % 0.0-5.0 20 Bas% 0.4 % 0.1-1.0 20 [place]% 2.3 % 0.0-4.0 20 Neut# 3.7 K/uL 1.8-7.0 20 Lymph # 1.3 K/uL 1.2-4.0 20 [place] # 0.6 K/uL 0.0-0.6 20 Eos # [...] Platelet Sufficiency NORMAL 22 Neutrophils,Absolute 2350 cells/L 5944-2404 22 Bands,Absolute DNR cells/L 0-750 22 Metamyelocytes,Absolute [...] Stippling DNR 22 Comment DNR 22 1 Poker Dealer: [id number] 2 Poker Dealer: [id number] REFERENCE VALUE <=1.0 (Negative) Test Performed by: [place] [address] Wet Process Assistant Head Miller: Eamon Hardin II, M.D., Ph.D. 4 FASTING [...] INTERCHANGEABLY. THIS ASSAY WAS PERFORMED USING THE [employer] CHEMILUMINESCENCE METHOD. SERUM PSA LEVELS SHOULD NOT BE INTERPRETED ABSOLUTE EVIDENCE OF THE PRESENCE OR ABSENCE OF DISEASE. 17 0 - 0.6 NG/ML: NO EVIDENCE OF MYOCARDIAL INJURY 0.7 - 1.5 NG/ML: MILD ELEVATION, SUGGESTING POSSIBLE MYOCARDIAL INJURY > 1.5 NG/ML: CONSISTENT WITH MYOCARDIAL INJURY 18 Specimen: [id number] - TESTS: B12, FOL, TSH IS THE PATIENT FASTING? FASTING TEST: B12 QUERY: IS THE PATIENT FASTING? TEST: FOL QUERY: IS THE PATIENT FASTING? TEST: TSH 19 0 - 0.6 NG/ML: NO EVIDENCE OF MYOCARDIAL INJURY 0.7 - 1.5 NG/ML: MILD ELEVATION, SUGGESTING POSSIBLE MYOCARDIAL INJURY > 1.5 NG/ML: CONSISTENT WITH MYOCARDIAL INJURY 20 Specimen: [id number] - TESTS: C7, CPK, TROP SLI HEMOLYZED [...] FOR RACE, IF THE PATIENT'S RACE IS -TANZANIAN, THE GFR ESTIMATE MUST BE MULTIPLIED BY A FACTOR OF 1.21. Procedures Date CPT Code Description Status 04/12/2016 98551 Non-Invcorrotid/Comp /Bilat Study Completed 04/12/2016 06720 Echocardiography Completed 01/24/2015 47174 Spirometry Graphic Record/Max Voluntary Vent Completed 01/24/2015 57672 EKG-Tracing & Report Completed 01/23/2015 38052 Non-Invcorrotid/Comp /Bilat Study Completed 01/23/2015 97589 Echocardiography Completed 12/06/2013 97475 Spirometry Graphic Record/Max Voluntary Vent Completed 12/06/2013 29932 Holter Monitor Office Completed 12/06/2013 52838 EKG-Tracing & Report Completed 11/19/2013 40981 Non-Invcorrotid/Comp /Bilat Study Completed 11/19/2013 64215 Echocardiography Completed 12/23/2011 37253 EKG-Tracing & Report Completed 12/20/2011 77129 Echocardiography Completed 10/29/2009 67282 EKG-Tracing & Report Completed 10/29/2009 47636 Holter Monitor Office Completed 10/29/2009 48808 PFT Evaluation Completed 10/27/2009 16768 Echocardiography Completed 12/14/2006 93934 PFT Evaluation Completed 10/31/2006 98113 PFT Evaluation Completed 04/29/2006 14692 Spirometry Graphic Record/Max Voluntary Vent Completed 04/29/2006 67933 Non-Invcorrotid/Comp /Bilat Study Completed 04/29/2006 42975 Doppler Color Flow Velocity Completed 04/29/2006 55946 Doppler/ECHO Completed 04/29/2006 44474 ECHO-2D W/Wo M-Mode Completed 04/29/2006 57299 Holter Monitor Office Completed 04/29/2006 95436 EKG-Tracing & Report Completed 06/03/2004 34779 Doppler Color Flow Velocity Completed 06/03/2004 75536 Doppler/ECHO Completed 06/03/2004 31809 ECHO-2D W/Wo M-Mode Completed 05/22/2004 12090 EKG-Tracing & Report Completed Encounters Type Date Location Provider CPT E/M Dx Office Visit 12/12/2017 3:30p [place] [address] R05 J10.00 J20.9 Office Visit 10/18/2017 3:30p [place] [address] K21.9 G25.0 G43.909 E78.5 Office Visit 07/18/2017 11:30a [place] [address] J20.9 Office Visit 06/15/2017 11:20a [place] [address] A09 L71.9 Office Visit 03/01/2017 3:30p [place] [address] J20.9 Office Visit 12/20/2016 1:40p [place] [address] R09.1 Office Visit 12/13/2016 3:20p [place] [address] R09.1 Office Visit 12/06/2016 3:30p [place] [address] R09.1 Office Visit 07/26/2016 11:40a [place] [address] K21.9 I34.0 Office Visit 07/19/2016 3:00p [place] [address] J01.90 Office Visit 07/09/2016 4:00p [place] [address] J01.90 Office Visit 05/18/2016 3:00p [place] [address] I34.0 K21.9 G25.0 K58.0 G43.909 Office Visit 05/05/2016 10:50a [place] [address] I34.0 I65.23 K21.9 F41.1 G25.0 K58.0 G43.909 R10.9 Z00.00 Office Visit 03/02/2016 1:30p [place] [address] E78.5 K21.9 F41.1 G25.0 Office Visit 10/06/2015 3:00p [place] [address] F41.1 E78.5 I34.0 K21.9 Office Visit 08/11/2015 3:30p [place] [address] K58.0 Office Visit 07/31/2015 3:30p Main Office Sybil Gonsalez M.D. 61458 J20.2 Office Visit 03/03/2015 11:40a [place] [address] 465.9 Office Visit 02/25/2015 11:30a [place] [address] 465.9 Office Visit 02/11/2015 11:20a [place] [address] 272.4 300.02 530.81 333.1 Office Visit 01/07/2015 11:50a [place] [address] 272.4 424.0 300.02 Office Visit 07/30/2014 3:10p [place] [address] 272.4 424.0 300.02 Office Visit 04/24/2014 11:30a [place] [address] 272.4 424.0 530.81 300.02 Office Visit 12/12/2013 2:00p [place] [address] 272.4 272.40 424.0 530.81 300.02 346.90 Office Visit 10/30/2013 2:40p [place] [address] 333.1 530.81 300.02 Office Visit 10/26/2013 10:30a [place] [address] 461.8 333.1 300.02 GENERAL Office Visit 06/19/2013 3:20p [place] [address] 466.0 Office Visit 05/29/2013 3:00p [place] [address] 785.2 300.02 Office Visit 11/09/2012 11:00a Main Office Sybil Gonsalez M.D. 46751 466.0 Office Visit 10/03/2012 10:10a [place] [address] 466.0 Office Visit 06/26/2012 3:30p [place] [address] 466.0 Office Visit 04/25/2012 2:20p [place] [address] 466.0 Office Visit 04/04/2012 1:40p [place] [address] 333.1 272.4 530.81 346.90 Office Visit 12/14/2011 1:40p [place] [address] 578.1 569.42 272.40 785.2 784.0 272.00 530.81 465.9 Office Visit 10/14/2011 11:15a [place] [address] 465.9 GENERAL Office Visit 07/12/2011 11:20a [place] [address] 784.0 Office Visit 05/04/2011 2:40p [place] [address] 466.0 272.40 785.2 784.0 272.00 530.81 Office Visit 11/24/2010 2:20p [place] [address] 466.0 Office Visit 05/12/2010 10:00a [place] [address] 346.90 272.4 424.0 Office Visit 02/02/2010 1:45p [place] [address] 461.9 466.0 GENERAL Office Visit 01/21/2010 10:30a [place] [address] 462 Office Visit 01/05/2010 10:10a [place] [address] 466.0 Office Visit 12/29/2009 11:50a [place] [address] 346.90 Office Visit 11/12/2009 11:50a [place] [address] 785.10 272.4 493.90 424.0 V03.7 Office Visit 10/06/2009 11:40a [place] [address] 466.00 Office Visit 12/19/2008 12:00p Main Office Sybil Gonsalez M.D. 72346 466.00 Office Visit 11/28/2008 2:45p [place] [address] 460.00 Office Visit 11/18/2008 11:30a [place] [address] GENERAL 333.1 300.02 V03.2 346.90 Office Visit 09/03/2008 3:10p [place] [address] 333.1 300.02 Office Visit 01/22/2008 2:40p [place] [address] 382.9 Office Visit 10/13/2007 11:30a [place] [address] 789.00 Office Visit 08/17/2007 11:20a [place] [address] 493.90 455.6 785.9 333.1 346.90 424.0 Office Visit 11/09/2006 11:30a [place] [address] 493.90 682.90 490 455.6 Office Visit 11/02/2006 3:30p [place] [address] 682.90 272.00 784.0 530.81 Office Visit 11/01/2006 3:15p Main Office Sybil Gonsalez M.D. 01758 487.1 455.6 Office Visit 09/21/2006 3:20p [place] [address] 490 Office Visit 08/30/2006 2:20p [place] [address] 780.40 Office Visit 05/09/2006 9:00a [place] [address] 785.10 785.9 530.81 477.9 333.1 302.72 346.90 278.00 Office Visit 10/26/2005 3:00p [place] [address] 490 272.40 272.00 477.9 530.81 333.1 302.72 346.90 786.59 592.0 729.1 Office Visit 10/27/2004 3:30p [place] [address] 272.40 272.00 Office Visit 07/28/2004 3:40p [place] [address] 460.00 Office Visit 05/25/2004 3:20p [place] [address] 784.0 Plan of Care Future Appointment(s):04/18/2018 10:30 am - Bk Gonsalez MD at Main Eooxyx79 - Casimiro Washington MDJ20.9 Acute bronchitis, unspecifiedNew Medication: Levofloxacin 500 mgR05 LspwwY68.90 Acute sinusitis, unspecifiedAllComments:FOR ABOVE DX:SALINE NASAL RINSELEVAQUIN 500MG Q DAY 10 DAYS (MULT ALLERGIES, OUT IN SUN, THEREFORE NO DOXY) POSSIBILITY OF TENDON RUPTURE WITH LEVAQUIN REVIEWED W PATIENT (RARE)RTO NEXT WEEK DR. NAVA RE-EVALUATION
[2018-04-19 14:02] VITALS: BP 143/91
--- NOTE | 2018-04-19 14:16 | UC ---
Abdominal Pain Male HPI - HPI Summary HPI Summary: Patient is to the urgent care today with chief complaint of left-sided back flank abdomen pain that began last night. Worsens with some positions and movement, does seem to wax and wane is constantly at a 3 but can occasionally spike up to a 7 without any movement. Patient denies nausea vomiting diarrhea denies dysuria,denies fever. - History of Current Complaint Chief Complaint: UCGeneralIllness Stated Complaint: PAIN IN LT SIDE/BACK Time Seen by Provider: 04/19/18 14:14 Hx Obtained From: Patient Onset/Duration: Sudden Onset, Lasting Days - 1, Still Present Timing: Constant Pain Intensity: 3 Pain Scale Used: 0-10 Numeric Location: Discrete At: LUQ Radiates: Yes Radiates to: Flank Character: Colicy Aggravating Factor(s): Nothing Alleviating Factor(s): Nothing Associated Signs And Symptoms: Positive: Negative - Allergies/Home Medications Allergies/Adverse Reactions: Allergies Allergy/AdvReac Type Severity Reaction Status Date / Time azithromycin [From Zithromax] Allergy Intermediate Rash Verified 04/19/18 14:01 Penicillins Allergy Hives Verified 04/19/18 14:01 sulfamethoxazole Allergy Rash Verified 04/19/18 14:01 [From Bactrim] trimethoprim [From Bactrim] Allergy Rash Verified 04/19/18 14:01 PMH/Surg Hx/FS Hx/Imm Hx Psychological History: Anxiety - Surgical History Surgical History: None - Family History Known Family History: Positive: None, Diabetes, Other Negative: Cardiac Disease, Hypertension, Respiratory Disease - Social History Occupation: Employed Full-time Lives: With Family Alcohol Use: Rare Substance Use Type: None Smoking Status (MU): Never Smoked Tobacco - Immunization History Most Recent Influenza Vaccination: Not the Season Review of Systems Constitutional: Negative Skin: Negative Eyes: Negative ENT: Negative Respiratory: Negative Cardiovascular: Negative Gastrointestinal: Abdominal Pain Genitourinary: Negative Motor: Negative Neurovascular: Negative Musculoskeletal: Negative Neurological: Negative Psychological: Negative Is Patient Immunocompromised?: No All Other Systems Reviewed And Are Negative: Yes Physical Exam Triage Information Reviewed: Yes Appearance: Well-Appearing, No Pain Distress, Well-Nourished Vital Signs: Initial Vital Signs Temp 97.3 F 04/19/18 13:55 Pulse 80 04/19/18 13:55 Resp 18 04/19/18 13:55 BP 143/91 04/19/18 13:55 Pulse Ox 97 04/19/18 13:55 Vital Signs Reviewed: Yes Eye Exam: Normal Eyes: Positive: Conjunctiva Clear ENT Exam: Normal ENT: Positive: Normal ENT inspection, Hearing grossly normal. Negative: Trismus , Muffled voice, Hoarse voice Dental Exam: Normal Neck exam: Normal Neck: Positive: Supple, Nontender Respiratory Exam: Normal Respiratory: Positive: Chest non-tender, Lungs clear, Normal breath sounds, No respiratory distress, No accessory muscle use Cardiovascular Exam: Normal Cardiovascular: Positive: RRR, No Murmur, Pulses Normal, Brisk Capillary Refill Abdominal Exam: Other Abdomen Description: Positive: No Organomegaly, Soft, CVA Tenderness (L). Negative: Distended, Guarding, Hepatomegaly, McBurney's Point Tenderness, Peritoneal Signs, Pulsatile Mass, Splenomegaly Bowel Sounds: Positive: Present Musculoskeletal Exam: Normal Musculoskeletal: Positive: Strength Intact, ROM Intact, No Edema Neurological Exam: Normal Neurological: Positive: Alert, Muscle Tone Normal Psychological Exam: Normal Skin Exam: Normal Diagnostics - Laboratory Diagnostic Studies Completed/Ordered: ua-Trace Blood - Radiology No standard instances Xray Interpretation: Positive (See Comments) Radiology Interpretation Completed By: ED Physician, Radiologist - Patient Name : JAREN VELAZQUEZ Medical Record# : [id number] Ordering Physician: Janee Martinez NP Acct.#: [id number] : 1965 Age: 52 Sex: M Location: [facility] Exam Date: 1414 ADM Status: REG ER Order Information: CT ABD/PEL W/O Accession Number: [id number] CPT : 04601 ADDENDUM Voice recognition error: There is an error in the body of the report. The left renal calculus is NONOBSTRUCTIVE. The impression stands as correct <Electronically signed by Eamon Longoria MD in OV>04/19/181506 Dictated by: Eamon Longoria MD Dictated Date/Time:04/19/18 150 Transcribed Date/Time: 04/19/18 150 Copy to: Janee Martinez NP; Bk Gonsalez MD; Mena Leung MD INDICATION: Left flank pain COMPARISON: CT April TECHNIQUE: Noncontrast axial source images were acquired from the level hemidiaphragms to the symphysis pubis as part of CT imaging for renal stone. Lung bases: There is mild right basilar atelectasis. Liver: The liver is normal in size. Noncontrast imaging shows no evidence of a hepatic mass or ductal dilatation. Gallbladder: There are no calcified gallstones. There is no evidence of wall thickening or pericholecystic fluid.. Spleen: The spleen is normal in size. The noncontrast CT appearance is normal. Pancreas: Noncontrast imaging shows no pancreatic mass or ductal dilitation. Adrenal glands: No masses are identified. Kidneys/Bladder: There is a nonobstructive lower pole right renal calculus. There are no other right-sided calculi. There is a obstructive, 2 mm upper pole left renal calculus. No additional renal calculi are seen. The ureters are normal in caliber. There are multiple left-sided parapelvic cysts. The appearance is unchanged Adenopathy: There is no evidence of intraperitoneal or retroperitoneal adenopathy. Evaluation is limited without oral contrast. Fluid collections: There are no free or localized fluid collections. Vessels: The aorta and iliac vessels are normal in caliber. There are no significant atherosclerotic changes. The IVC appears normal Pelvic organs: The prostate and seminal vesicles appear normal 1 of 2 Re-Evaluation - Re-Evaluation First Eval Change: Improved Abd Pain Male Course/Dx - Course Course Of Treatment: Patient will be treated with acyclovir, hydrocodone for pain some gabapentin Tylenol ibuprofen for less severe pain. Patient encouraged to follow with Dr. Loredo tomorrow for recheck recheck blood pressure and to go to the emergency department should symptoms worsen in anyway - Differential Dx/Clinical Impression Provider Diagnoses: left flank pain Discharge - Sign-Out/Discharge Documenting (check all that apply): Discharge/Admit/Transfer - Discharge Plan Condition: Stable Disposition: HOME Prescriptions: Acyclovir* [Zovirax 400 MG TAB*] 800 mg PO Q4HR 7 Days #70 tab Gabapentin CAP(*) [Neurontin 300 CAP(*)] 300 mg PO BID PRN #30 cap PRN Reason: pain Hydrocodone/Acetaminophen [Hydrocodone/Acetaminophen 5-325 mg] 1 tab PO Q6HR PRN #10 tab MDD 4 PRN Reason: pain Patient Education Materials: Shingles (ED), Hematuria (ED), Hypertension (ED), Flank Pain (ED) Referrals: Gauss,Bk F, MD [Primary Care Provider] - 2 Days - Billing Disposition and Condition Condition: STABLE Disposition: Home
--- NOTE | 2018-04-19 14:47 | RAD ---
INDICATION: Left flank pain COMPARISON: CT April 27, 2016 TECHNIQUE: Noncontrast axial source images were acquired from the level hemidiaphragms to the symphysis pubis as part of CT imaging for renal stone. Lung bases: There is mild right basilar atelectasis. Liver: The liver is normal in size. Noncontrast imaging shows no evidence of a hepatic mass or ductal dilatation. Gallbladder: There are no calcified gallstones. There is no evidence of wall thickening or pericholecystic fluid.. Spleen: The spleen is normal in size. The noncontrast CT appearance is normal. Pancreas: Noncontrast imaging shows no pancreatic mass or ductal dilitation. Adrenal glands: No masses are identified. Kidneys/Bladder: There is a nonobstructive lower pole right renal calculus. There are no other right-sided calculi. There is a obstructive, 2 mm upper pole left renal calculus. No additional renal calculi are seen. The ureters are normal in caliber. There are multiple left-sided parapelvic cysts. The appearance is unchanged Adenopathy: There is no evidence of intraperitoneal or retroperitoneal adenopathy. Evaluation is limited without oral contrast. Fluid collections: There are no free or localized fluid collections. Vessels: The aorta and iliac vessels are normal in caliber. There are no significant atherosclerotic changes. The IVC appears normal Pelvic organs: The prostate and seminal vesicles appear normal GI tract: Evaluation of the bowel is limited without oral contrast. The stomach, small bowel, and lower GI tract appear grossly normal. There are no obstructive findings. The appendix is visualized and appears normal. Soft tissues: No soft tissue abnormalities of the extraperitoneal abdomen or pelvis are identified. Osseous structures: There are no acute osseous findings. IMPRESSION: BILATERAL NONOBSTRUCTIVE NEPHROLITHIASIS. LEFT-SIDED PARAPELVIC CYSTS, UNCHANGED
[2018-04-19] MEDS ORDERED: Ketorolac INJ* 60 MG/2 ML VIAL IM ONE (15:02)
== END 2018-04-19 15:38 | disposition home or self-care (01) ==
LOC: UCCORT 12:07
DX: R10.9 Unspecified abdominal pain (principal); Z88.1 Allergy status to other antibiotic agents
CPT/HCPCS: 74176; 81003; 87086; 96372; 99212; G0463; J1885

== ENCOUNTER 2018-08-18 11:34 | Emergency (ER) | payer BC ==
[2018-08-18 13:27] VITALS: BP 141/99
--- NOTE | 2018-08-18 13:44 | UC ---
General HPI - HPI Summary HPI Summary: cough with sore throat and green sputum for over a week. worsening. + wheezing. no fever or sob. - History of Current Complaint Chief Complaint: UCRespiratory Stated Complaint: COUGH Time Seen by Provider: 08/18/18 13:01 Hx Obtained From: Patient Onset/Duration: Gradual Onset Pain Intensity: 0 Associated Signs & Symptoms: Positive: Cough, Wheezing. Negative: Fever, SOB - Allergy/Home Medications Allergies/Adverse Reactions: Allergies Allergy/AdvReac Type Severity Reaction Status Date / Time azithromycin [From Zithromax] Allergy Intermediate Rash Verified 08/18/18 13:21 Penicillins Allergy Hives Verified 08/18/18 13:21 sulfamethoxazole Allergy Rash Verified 08/18/18 13:21 [From Bactrim] trimethoprim [From Bactrim] Allergy Rash Verified 08/18/18 13:21 Home Medications: Home Medications [id number] Es (Nf) [Excedrin Extra Strength 250-250-65 mg (NF)] 2 tab PO Q6H PRN 08/18/18 [History Confirmed 08/18/18] Acetaminophen/Dextromethorphan [Cold & Cough Daytime 1000-30 mg/30Ml] 1 liq PO Q4H PRN 08/18/18 [History Confirmed 08/18/18] PMH/Surg Hx/FS Hx/Imm Hx - Additional Past Medical History Additional PMH: tremor Psychological History: Anxiety - Surgical History Surgical History: None - Family History Known Family History: Positive: None, Diabetes, Other Negative: Cardiac Disease, Hypertension, Respiratory Disease - Social History Occupation: Employed Full-time Alcohol Use: Occasionally Substance Use Type: None Smoking Status (MU): Never Smoked Tobacco - Immunization History Most Recent Influenza Vaccination: Not the Season Vaccination Up to Date: Yes Review of Systems Constitutional: Negative Skin: Negative Eyes: Negative ENT: Negative Respiratory: Cough Cardiovascular: Negative Gastrointestinal: Negative Genitourinary: Negative Motor: Negative Neurovascular: Negative Musculoskeletal: Negative Neurological: Negative Psychological: Negative Is Patient Immunocompromised?: No All Other Systems Reviewed And Are Negative: Yes Physical Exam Triage Information Reviewed: Yes Appearance: Well-Appearing Vital Signs: Initial Vital Signs Temp 97.6 F 08/18/18 13:23 Pulse 92 08/18/18 13:23 Resp 16 08/18/18 13:23 BP 141/99 08/18/18 13:23 Pulse Ox 97 08/18/18 13:23 Vital Signs Reviewed: Yes Eyes: Positive: Conjunctiva Clear ENT: Positive: Pharynx normal, TMs normal. Negative: Nasal congestion, Nasal drainage Neck: Positive: Supple, Nontender, No Lymphadenopathy Respiratory: Positive: Lungs clear, No respiratory distress, Decreased breath sounds, Other: - Bronchospastic cough that is congested. Cardiovascular: Positive: RRR, No Murmur Abdomen Description: Positive: Nontender, No Organomegaly, Soft Bowel Sounds: Positive: Present Musculoskeletal: Positive: ROM Intact Neurological: Positive: Alert Psychological: Positive: Age Appropriate Behavior Skin Exam: Normal Course/Dx - Course Course Of Treatment: ill for over a week with acute worsening thus will tx for presumptive secondary bacterial infection. - Differential Dx - Multi-Symptom Provider Diagnoses: cough. bronchospasm. Discharge - Sign-Out/Discharge Documenting (check all that apply): Patient Departure All imaging exams completed and their final reports reviewed: No Studies - Discharge Plan Condition: Stable Disposition: HOME Prescriptions: Albuterol HFA INHALER* [Ventolin HFA Inhaler*] 2 puff INH Q6H #1 mdi Benzonatate CAP* [Tessalon 100 MG CAP*] 100 mg PO TID PRN #10 cap PRN Reason: Cough DOXYcycline CAP(*) [DOXYcycline 100MG CAP(*)] 100 mg PO BID 7 Days #14 cap Patient Education Materials: Bronchospasm (ED), Acute Cough (ED) Referrals: Bk Gonsalez MD [Primary Care Provider] - 7 Days - Billing Disposition and Condition Condition: STABLE Disposition: Home
== END 2018-08-18 13:54 | disposition home or self-care (01) ==
LOC: UCCORT 11:34
DX: J98.01 Acute bronchospasm (principal)
CPT/HCPCS: 99212; G0463

== ENCOUNTER 2019-03-08 12:44 | Emergency (ER) | payer BC ==
[2019-03-08 14:22] VITALS: BP 154/92
--- NOTE | 2019-03-08 14:59 | ED ---
Neurological HPI - HPI Summary HPI Summary: 53 yr old male with the complaint of right arm numbness. The patient's symptoms began about 10 days ago. He gets numbness and tingling that come and go lasting several seconds to 4-5 minutes at a time from the elbow down to the finger tips in a stocking like distribution. He denies headache, change in vision, speech, hearing, swallowing, gait. Denies focal weakness. Denies headache. He has a history of tremors. His sister has MS. - History of Current Complaint Chief Complaint: UCGeneralIllness Stated Complaint: RIGHT ARM PAIN/NUMBNESS Time Seen by Provider: 03/08/19 14:34 Pain Intensity: 0 - Allergy/Home Medications Allergies/Adverse Reactions: Allergies Allergy/AdvReac Type Severity Reaction Status Date / Time azithromycin [From Zithromax] Allergy Intermediate Rash Verified 03/08/19 14:23 Penicillins Allergy Hives Verified 03/08/19 14:23 sulfamethoxazole Allergy Rash Verified 03/08/19 14:23 [From Bactrim] trimethoprim [From Bactrim] Allergy Rash Verified 03/08/19 14:23 PMH/Surg Hx/FS Hx/Imm Hx Endocrine/Hematology History: Denies: Hx Diabetes, Hx Thyroid Disease Cardiovascular History: Reports: Other Cardiovascular Problems/Disorders - SMALL VALVE LEAK Denies: Hx Congestive Heart Failure, Hx Deep Vein Thrombosis, Hx Hypertension , Hx Myocardial Infarction, Hx Pacemaker/ICD Respiratory History: Denies: Hx Lung Cancer GI History: Reports: Hx Ulcer Denies: Hx Gall Bladder Disease, Hx Gastrointestinal Bleed, Hx Urosepsis History: Denies: Hx Dialysis, Hx Kidney Stones, Hx Renal Disease Neurological History: Denies: Hx Dementia, Hx Migraine, Hx Seizures, Hx Transient Ischemic Attacks (TIA) Psychiatric History: Reports: Hx Anxiety Denies: Hx Depression, Hx Schizophrenia, Hx Bipolar Disorder Infectious Disease History: No Infectious Disease History: Denies: Traveled Outside the [place] in Last 30 Days - Family History Known Family History: Positive: None, Diabetes, Other Negative: Cardiac Disease, Hypertension, Respiratory Disease - Social History Alcohol Use: Occasionally Substance Use Type: Reports: None Smoking Status (MU): Never Smoked Tobacco Review of Systems Constitutional: Negative Positive: Numbness All Other Systems Reviewed And Are Negative: Yes Physical Exam Triage Information Reviewed: Yes Vital Signs On Initial Exam: Initial Vitals Temp Pulse Resp BP Pulse Ox 97.9 F 107 16 154/92 96 03/08/19 14:15 03/08/19 14:15 03/08/19 14:15 03/08/19 14:15 03/08/19 14:15 Vital Signs Reviewed: Yes Appearance: Positive: Well-Appearing, No Pain Distress Skin: Positive: Warm, Skin Color Reflects Adequate Perfusion Head/Face: Positive: Normal Head/Face Inspection Eyes: Positive: EOMI, EKTA ENT: Positive: Pharynx normal Neck: Positive: Nontender Respiratory/Lung Sounds: Positive: Clear to Auscultation, Breath Sounds Present Cardiovascular: Positive: RRR. Negative: Murmur Abdomen Description: Negative: Distended Musculoskeletal: Positive: Strength/ROM Intact Neurological: Positive: Sensory/Motor Intact, Alert, Oriented to Person Place, Time, CN Intact II-III, Normal Gait, Speech Normal, Other - he has a resting tremor Psychiatric: Positive: Normal Diagnostics - Vital Signs Vital Signs Temp Pulse Resp BP Pulse Ox 03/08/19 14:15 97.9 F 107 16 154/92 96 - Laboratory Lab Statement: Any lab studies that have been ordered have been reviewed, and results considered in the medical decision making process. Course/Dx - Course Course Of Treatment: patient with no symptoms now. Signed out AMA and refused the ambulance to the ER for further work up. - Diagnoses Provider Diagnoses: Numbness and tingling of right arm, Hypertension Discharge - Sign-Out/Discharge Documenting (check all that apply): Patient Departure All imaging exams completed and their final reports reviewed: No Studies - Discharge Plan Condition: Stable Disposition: AGAINST MEDICAL ADVICE Referrals: Bk Gonsalez MD [Primary Care Provider] - - Billing Disposition and Condition Condition: STABLE Disposition: Against Medical Advice
== END 2019-03-08 14:55 | disposition left against medical advice (07) ==
LOC: UCCORT 12:44
DX: R20.0 Anesthesia of skin (principal); R20.2 Paresthesia of skin; I10 Essential (primary) hypertension
CPT/HCPCS: 99212; G0463

== ENCOUNTER 2019-05-01 08:52 | Emergency (ER) | payer BC ==
--- OUTSIDE RECORDS SUMMARY | 2019-05-01 09:04 | XMS REPORT | Continuity of Care Document ---
:1965 External Reference #:[id number] Author Name Claire Whitaker MD Address [address] [place] [address] Care Team Providers Name Role Phone Bk Gonsalez MD Care Team Information Deputy Insurance Commissioner Unavailable Bk Gonsalez MD Primary Care Physician Unavailable Payers Date Identification Numbers Payment Provider Subscriber Policy Number: [id number] Marlon Rainey PayID: [id number] [address] [address] [place] [address] Family History Date Family Member(s) Observation Comments Father Cancer Father Diabetes Social History Type Date Description Comments Sex Unknown Lives With 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 Right-handed Tobacco Use Start: Unknown Never Smoked Cigarettes ETOH Use Occasionally consumes alcohol Recreational Drug Use Denies Drug Use Tobacco Use Start: Unknown Patient has never smoked Smoking Status Reviewed: 04/20/19 Patient has never smoked Allergies, Adverse Reactions, Alerts Active Allergies Reaction Severity Comments Date Penicillin V 03/20/2019 Amoxicillin 03/20/2019 Medications Active Medications SIG Qnty Indications Ordering Provider Date Paroxetine HCL 1 daily Sybil Gonsalez MD 20mg Tablets Vital Signs Date Vital Result Comment 05/01/2019 8:32am BP Systolic Sitting Left Arm 155 mmHg BP Diastolic Sitting Left Arm 86 mmHg Body Temperature 96.7 F Heart Rate 78 /min Height 73 inches 6'1" Weight 222.00 lb BMI (Body Mass Index) 29.3 kg/m2 BSA (Body Surface Area) 2.25 m2 [place] body weight in kilograms 83 kg O2 % BldC Oximetry 96 % 03/20/2019 3:56pm BP Systolic 169 mmHg BP Diastolic 97 mmHg Body Temperature 98.3 F Heart Rate 74 /min Height 73 inches 6'1" Weight 223.00 lb BMI (Body Mass Index) 29.4 kg/m2 BSA (Body Surface Area) 2.25 m2 [place] body weight in kilograms 83 kg O2 % BldC Oximetry 95 % Encounters Type Date Location Provider Dx Diagnosis Office Visit 03/20/2019 [facility] Claire Whitaker, R20.0 Anesthesia of skin 3:45p G56.01 Carpal tunnel syndrome, right upper limb Plan of Treatment Future Appointment(s):10/30/2019 4:00 pm - Claire Whitaker MD at [id number]/01/2019 - Claire Whitaker MDG56.01 Carpal tunnel syndrome, right upper limb
--- OUTSIDE RECORDS SUMMARY | 2019-05-01 09:05 | XMS REPORT | Continuity of Care Document ---
:1965 External Reference #:[id number] Author Name Yuliet Pradhan Care Team Providers Name Role Phone Bk Gonsalez MD Primary Care Physician Unavailable Payers Date Identification Numbers Payment Provider Subscriber Policy Number: [id number] [employer] Jaren Rainey PayID: [id number] [place] [address] [place] [id number] [place] [id number] Problems Active Problems Provider Date Hyperlipidemia Bk Gonsalez Onset: 10/08/2005 Heart murmur Bk Gonsalez Onset: 10/08/2005 Headache Bk Gonsalez Onset: 10/08/2005 Pure hypercholesterolemia Bk Gosnalez Onset: 10/08/2005 Gastroesophageal reflux disease Bk Gonsalez Onset: 10/08/2005 Acute upper respiratory infection Casimiro Washington MD Onset: 10/14/2011 Acute sinusitis Casimiro Washington MD Onset: 10/26/2013 Family History Date Family Member(s) Observation Comments General Positive For Heart Diease,Cancer,DM Father due to Cancer () Mother Fibromyalgia Social History Type Date Description Comments Sex Unknown Marital Status single Tobacco Use Start: Unknown Never Smoked Cigarettes ETOH Use Occasionally consumes alcohol Recreational Drug Use Denies Drug Use Tobacco Use Start: Unknown Patient has never smoked Smoking Status Reviewed: 06/15/17 Patient has never smoked Allergies, Adverse Reactions, Alerts Active Allergies Reaction Severity Comments Date PCN 10/25/2005 Amoxicillin 10/25/2005 Azithromycin 11/09/2012 Bactrim 07/19/2016 Winston Inhibitors Cough Moderate 04/17/2019 Medications Active Medications SIG Qnty Indications Ordering Provider Date [place] Nasal [place] spray twice daily 66ml Casimiro Washington MD 12/18/2018 to each nare 0.65% Solution Paxil 1 by mouth every 90tabs F41.1 Sybil Gonsalez M.D. 03/02/2016 20mg Tablets day Exedrin As needed for Unknown headaches History Medications Lisinopril 1 by mouth every 30tabs I11.9 GaussBk 03/22/2019 - 5mg Tablets day 04/17/2019 Levofloxacin 1 by mouth every 10tabs J20.9 Casimiro Washington MD 12/18/2018 - 500mg day 01/11/2019 Tablets Naproxen 1 by mouth twice a 60tabs M54.2 Bk Gonsalez 05/30/2018 - 500mg Tablets day as needed 04/17/2019 Cyclobenzaprine HCL take 1 tablet by 14tabs M54.2 Bk Gonsalez 05/30/2018 - 10mg mouth at bedtime 04/17/2019 Tablets prn Levofloxacin 1 by mouth every 10tabs J20.9 Casimiro Washington MD 03/29/2018 - 500mg day 05/30/2018 Tablets Hydrocodone 5ml by mouth every 473ml J20.9 GaBk ramirez 12/12/2017 - Polistirex/Chlorphenir q6hr as needed 03/29/2018 amine Polistirex 10-8mg/5ML Suer Levofloxacin 1 by mouth every 7tabs J20.9 Bk Gonsalez 12/12/2017 - 500mg day 03/29/2018 Tablets Mucus Relief ER 12 1 po bid prn 14tabs R05 Bk Gonsalez 12/12/2017 - Hour Maximum Strength 03/29/2018 1200mg Tablets ER 12HR Doxycycline Hyclate 1 by mouth twice a 30caps J20.9 Bk Gonsalez 2016 - 100mg day 03/29/2018 Capsules Hydrocodone 5 milliliters every 480ml 465.9 Bk Gonsalez 07/18/2017 - Bitartrate/Chlorphenir 6 hour as needed 07/18/2017 amine Maleate/Pse 60-4-5mg/5ML Solution No Work out of work until Bk Gonsalez 07/18/2017 - 07/21 201705/30/2018 Tussionex Pennkinetic 1 TSP Every 12 115ml Bk Gonsalez 07/18/2017 - Extended Release Hours as Needed 03/29/2018 10-8mg/5ML Suer Levofloxacin 1 by mouth every 10tabs J20.9 GaBk ramirez 03/01/2017 - 500mg day 06/15/2017 Tablets Naproxen 1 by mouth twice a 180tabs R09.1 Gauss, Bk 12/20/2016 - 500mg Tablets day as needed 05/30/2018 Gabapentin 1 by mouth 3 x 90caps R09.1 Gajames, Bk 12/20/2016 - 100mg Capsules daily 06/15/2017 Tramadol HCL 1 by mouth every 6 30tabs R09.1 Gauss, Bk 12/06/2016 - 50mg Tablets hours as needed 12/13/2016 pain Levaquin 1 PO Q Day 7tabs J01.90 Gauss, Bk 07/19/2016 - 500mg Tablets 07/26/2016 Bactrim DS 1 by mouth twice a 20tabs J20.2 Casimiro Washington MD 07/09/2016 - 800-160mg day 07/19/2016 Tablets Zoloft 1 by mouth every 30tabs F41.1 GaussJumal 10/06/2015 - 25mg Tablets night at bedtime 03/02/2016 Metamucil [facility] tid K58.0 Bk Gonsalez 08/11/2015 - Fiber 03/29/2018 55.46% Powder Bactrim DS 1 by mouth twice a 20tabs J20.2 Sybil Wallace, 07/31/2015 - 800-160mg day M.D. 08/11/2015 Tablets Cheratussin ac 1 teaspoon every 4 120ml J20.2 Sybil Wallace, 07/31/2015 - hour as needed M.D. 10/06/2015 100-10mg/5ML Syrup cough Cheratussin ac 1 teaspoon every 4 120ml GaBk ramirez 03/04/2015 - hour as needed 07/31/2015 100-10mg/5ML Syrup cough Hydrocodone 5 milliliters every 480ml 465.9 Gauss, Bk 03/03/2015 - Bitartrate/Chlorphenir 6 hour as needed 03/04/2015 amine Maleate/Pse 60-4-5mg/5ML Solution Robitussin Chest 1 teaspoon by mouth 118ml 465.9 Gauss, Bk 02/25/2015 - Congestion every 6hr as needed 03/03/2015 100mg/5ML Syrup Bactrim DS 1 by mouth twice a 20tabs 465.9 Gauss, Bk 02/25/2015 - 800-160mg day 07/31/2015 Tablets Work Note patient off work WallaceBk 02/25/2015 - from 03/03/15 till 03/02/2016 03/05/15 Bactrim DS 1 po bid 14tabs 466.0 Casimiro Washington MD 10/26/2013 - 800-160mg 11/21/2013 Tablets Doxycycline 1 po bid 20caps Bk Gonsalez 06/21/2013 - 100mg Caps 10/26/2013 Part Robitussin Night Time as Directed Per 118ml 466.0 Bk Gonsalez 06/19/2013 - Cough Cold & Flu Bottle 10/26/2013 6.25-2.5-160mg/5ML Liquid Doxycycline Hyclate 1 po bid 20caps 466.0 Bk Gonsalez 06/19/2013 - 100mg 10/26/2013 Capsules Bactrim DS 1 po bid 14tabs 466.0 Sybil Gonsalez, 11/09/2012 - 800-160mg M.D. 05/29/2013 Tablets Robitussin With 1 tsp po q 4 hours 8Oz 466.0 Sybil Gonsalez, 11/09/2012 - Codeine prn M.D. 05/29/2013 100mg/5ML Syrup Azithromycin 2 po today, 1 po 5tabs 466.0 Bk Gonsalez 10/03/2012 - 250mg day 2 thru 11/09/2012 Tablets Robitussin With one tablespoon po 16Oz 466.0 Bk Gonsalez 10/03/2012 - Codeine qhs prn cough 11/09/2012 Liquid Azithromycin 2 po today, 1 po 5tabs 466.0 GaBk ramirez 06/26/2012 - 250mg day 2 thru 10/03/2012 Tablets Robitussin With 1 tbspn po qhs prn 16Oz 466.0 GaBk ramirez 06/26/2012 - Codeine 06/26/2012 Tape Robitussin Peak Cold 237ml 466.0 Bk Gonsalez 06/26/2012 - Cough+ Chest 10/03/2012 Congestion DM Max Strenght 10-200mg/5ML Liquid Azithromycin 2 po today, 1 po 5tabs 466.0 GaBk ramirez 04/25/2012 - 250mg day 2 thru 06/26/2012 Tablets Gabapentin 1 PO Q Day For Week 65caps 333.1 Bk Gonsalez 04/04/2012 - 100mg Capsules One 2 PO Q Day For 05/29/2013 Week 2 3 PO Q Day For Week 3 Metamucil 578.1 Bk Gonsalez 12/14/2011 - 28.3% Powder 03/02/2016 Erythromycin Base 1 po bid 20tabs 466.0 Casimiro Washington MD 10/14/2011 - 500mg 12/14/2011 Tablets Ultram one every 6 hours 120tabs 784.0 Bk Gonsalez 07/12/2011 - 50mg Tablets as needed for pain 03/02/2016 Work Note jaren will be off Sybil Gonsalez 07/12/2011 - work Aug 01, 2015 M.DKatie 03/02/2016 Jaren Rainey patient was seen at Casimiro Washington MD 05/07/2011 - this office 05/04/11 12/12/2013 for bronchitis and ear infection. Robitussin With one tablespoon po 16Oz 466.0 Bk Gonsalez 05/04/2011 - Codeine qhs prn cough 07/12/2011 Liquid Robitussin With one tablespoon po 16Oz 466.0 Bk Gonsalez 11/24/2010 - Codeine qhs prn cough 05/04/2011 Liquid Erythromycin Base 1 po bid 20tabs 466.0 Bk Gonsalez 11/24/2010 - 500mg 07/12/2011 Tablets Work Note jaren will be off Casimiro Washington MD 02/02/2010 - work until tuesday05/12/2010 02/09/10 Zyrtec Allergy 1 po qd 30tabs Casimiro Washington MD 02/02/2010 - 10mg 05/12/2010 Tablets Erythromycin Base tab 1 po bid 20tabs Casimiro Washington MD 02/02/2010 - 333mg 05/12/2010 Tablets Erythromycin Base 1 po bid with food 20tabs 466.0 Bk Gonsalez 01/05/2010 - 333mg 02/02/2010 Tablets Work Note jaren will be off Bk Gonsalez 01/05/2010 - work for 3 days 05/12/2010 Sumatriptan Succinate 1 po q 6 hr 10tabs 346.90 Bk Gonsalez 12/29/2009 - 05/12/2010 25mg Tablets Tramadol HCL 1 po q 6 hours pain 25tabs 346.90 Bk Gonsalez 12/29/2009 - 50mg Tablets prn 05/12/2010 Work Note jaren will be off Bk Gonsalez 12/29/2009 - work for 2 days 05/12/2010 Erythromycin Base 1 po bid with food 20tabs 466.00 Bk Gonsalez 10/06/2009 - 333mg 11/12/2009 Tablets Medical Excuse the above is 466.00 Sybil Gonsalez, 12/19/2008 - excused from work M.D. 10/06/2009 and school until december 23, 2008 Erythromycin Base 1 po bid 14tabs 466.00 Sybil Gonsalez, 12/19/2008 - 500mg M.D. 10/06/2009 Tablets Fexofenadine HCL 1 po bid 60tabs 466.00 Sybil Gonsalez, 12/19/2008 - 60mg M.D. 11/12/2009 Tablets Robitussin With 1-2 teaspoon po q 4Oz 466.00 Sybil Gonsalez, 12/19/2008 - Codeine 4-6 hrs for cough M.D. 10/06/2009 Liquid Cipro 1 po bid 14tabs 466.00 Sybil Gonsalez, 12/19/2008 - 500mg Tablets M.D. 10/06/2009 Zithromax 2 po day 1, 1 po qd 6tabs Casimiro Washington MD 11/28/2008 - 250mg Tablets x days 2-5 10/06/2009 Paxil 1 by mouth every 90tabs F41.1 Sybil Gonsalez 09/03/2008 - 20mg Tablets day M.D. 10/06/2015 Erthromycin 1 po qid 40tabs 382.9 Bk Gonsalez 01/22/2008 - 500mg Tablets 09/03/2008 May Return To Work Patient May Return Casimiro Washington MD 10/13/2007 - To Work With No 09/03/2008 Restrictions Pce one po bid x 14days 28tabs Bk Gonsalez 11/02/2006 - 500mg Tablets 11/03/2006 Tamiflu 1 po bid 14caps 487.1 Casimiro Washington MD 11/01/2006 - 75mg Capsules 10/13/2007 Anucort-HC 1 pr after BM or 20units 487.1 Sybil Gonsalez, 11/01/2006 - 25mg prn pain M.D. 11/05/2006 Suppositor Ultracet one po q 6 hr.prn 30tabs 487.1 Sybil Gonsalez, 11/01/2006 - 325mg;37.5 mg M.D. 11/05/2006 Tablets Pce one po bid x 10days 20tabs 490 Bk Gonsalez 09/21/2006 - 500mg Tablets 11/04/2006 Ultram one every 6 hours 30tabs Casimiro Washington MD 08/30/2006 - 50mg Tablets as needed for pain 10/13/2007 Meclizine 1 po tid prn 30tabs 780.40 Casimiro Washington MD 08/30/2006 - 25mg Tablets 10/13/2007 Pce One PO bid X 10Days 20tabs 490 Bk Gonsalez 10/26/2005 - 500mg Tablets 05/09/2006 Prilosec 1 PO qd prn 100caps Bk Gonsalez 10/25/2005 - 40mg Capsules 10/26/2005 Flonase 1 [place] To Each 1units Bk Gonsalez 10/25/2005 - 50mcg/[place] Nare qd 05/09/2006 Suspension Paxil 1 po qd 100tabs Casimiro Washington MD 10/25/2005 - 20mg Tablets 09/03/2008 Kiya 1 PO bid 60tabs Bk Gonsalez 10/25/2005 - 60mg Tablets 05/09/2006 Ultram 1-2 tabs po q 6 hrs 30tabs Bk Gonsalez 10/25/2005 - 50mg Tablets prn 05/09/2006 Viagra One PO prn AD 6tabs Bk Gonsalez 10/25/2005 - 100mg Tablets 05/09/2006 Imitrex 1 po qd prn ad 6tabs Bk Gonsalez 10/25/2005 - 100mg Tablets 05/09/2006 Loratadine Allergy 1 by mouth every Unknown - Relief day as needed 04/17/2019 10mg Tablets Dispers Benadryl Allergy 1 tabs by mouth Unknown - 25mg four times a day as 04/17/2019 Capsules needed Medications Administered in Office Medication SIG Qnty Indications Ordering Provider Date PPD Injection Bk Gonsalez 11/18/2008 Immunizations CPT Code Status Date Vaccine Lot # [id number] Given 11/12/2009 Tetanus Shot [id number] Given 10/17/1997 DT Immunization DIP/Tet (History Only) Vital Signs Date Vital Result Comment 04/17/2019 11:34am BP Systolic 120 mmHg BP Diastolic 84 mmHg Heart Rate 83 /min Height 74 inches 6'2" Weight 225.00 lb BMI (Body Mass Index) 28.9 kg/m2 O2 % BldC Oximetry 95 % 01/11/2019 11:47am BP Systolic 134 mmHg BP Diastolic 80 mmHg Height 74 inches 6'2" Weight 225.00 lb BMI (Body Mass Index) 28.9 kg/m2 12/18/2018 12:45pm BP Systolic 138 mmHg BP Diastolic 90 mmHg Heart Rate 92 /min Body Temperature 99.0 F Height 74 inches 6'2" Weight 225.00 lb BMI (Body Mass Index) 28.9 kg/m2 O2 % BldC Oximetry 94 % 05/30/2018 11:31am BP Systolic 125 mmHg BP Diastolic 76 mmHg Height 74 inches 6'2" Weight 225.00 lb BMI (Body Mass Index) 28.9 kg/m2 03/29/2018 2:25pm BP Systolic 156 mmHg BP Diastolic 98 mmHg Heart Rate 88 /min Body Temperature 98.5 F Height 74 inches 6'2" Weight 225.00 lb BMI (Body Mass Index) 28.9 kg/m2 O2 % BldC Oximetry 96 % 12/12/2017 3:28pm BP Systolic 120 mmHg BP Diastolic 74 mmHg Body Temperature 98.3 F Height 74 inches 6'2" Weight 222.00 lb BMI (Body Mass Index) 28.5 kg/m2 10/18/2017 3:37pm BP Systolic 142 mmHg BP Diastolic 78 mmHg Respiratory Rate 18 /min Height 74 inches 6'2" Weight 226.00 lb BMI (Body Mass Index) 29.0 kg/m2 07/18/2017 11:38am BP Systolic 122 mmHg BP Diastolic 60 mmHg Body Temperature 99.4 F 06/15/2017 11:34am BP Systolic 128 mmHg BP Diastolic 68 mmHg 03/01/2017 3:50pm BP Systolic 123 mmHg BP Diastolic 78 mmHg Body Temperature 98.6 F 12/20/2016 1:57pm BP Systolic 122 mmHg BP Diastolic 70 mmHg 12/13/2016 3:33pm BP Systolic 144 mmHg BP Diastolic 92 mmHg 12/06/2016 3:44pm BP Systolic 140 mmHg BP Diastolic 80 mmHg 07/26/2016 11:58am BP Systolic 138 mmHg BP Diastolic 72 mmHg 07/19/2016 3:26pm BP Systolic 122 mmHg BP Diastolic 70 mmHg Body Temperature 98.5 F 07/09/2016 4:27pm BP Systolic 140 mmHg BP Diastolic 90 mmHg Body Temperature 98.7 F 05/18/2016 3:01pm BP Systolic 118 mmHg BP Diastolic 70 mmHg 05/05/2016 11:06am BP Systolic 128 mmHg BP Diastolic 70 mmHg Height 74 inches 6'2" Weight 227.00 lb BMI (Body Mass Index) 29.1 kg/m2 03/02/2016 1:38pm BP Systolic 128 mmHg BP Diastolic 70 mmHg Height 74 inches 6'2" Weight 230.00 lb BMI (Body Mass Index) 29.5 kg/m2 10/06/2015 3:22pm BP Systolic 122 mmHg BP Diastolic 68 mmHg Height 74 inches 6'2" Weight 228.00 lb BMI (Body Mass Index) 29.3 kg/m2 08/11/2015 3:57pm BP Systolic 132 mmHg BP Diastolic 74 mmHg 07/31/2015 3:42pm BP Systolic 138 mmHg BP Diastolic 72 mmHg Body Temperature 98.2 F 02/25/2015 11:54am BP Systolic 138 mmHg BP Diastolic 78 mmHg Body Temperature 98.8 F Height 74 inches 6'2" 02/11/2015 11:29am BP Systolic 138 mmHg BP Diastolic 72 mmHg Height 74 inches 6'2" Weight 222.00 lb BMI (Body Mass Index) 28.5 kg/m2 01/07/2015 11:51am BP Systolic 128 mmHg BP Diastolic 60 mmHg 07/30/2014 3:40pm BP Systolic 130 mmHg BP Diastolic 72 mmHg Height 74 inches 6'2" Weight 226.00 lb BMI (Body Mass Index) 29.0 kg/m2 04/24/2014 11:47am BP Systolic 128 mmHg BP Diastolic 60 mmHg 12/12/2013 2:14pm BP Systolic 124 mmHg BP Diastolic 78 mmHg Height 74 inches 6'2" Weight 219.00 lb BMI (Body Mass Index) 28.1 kg/m2 10/26/2013 10:36am BP Systolic 132 mmHg BP Diastolic 78 mmHg Body Temperature 98.0 F Height 74 inches 6'2" 06/19/2013 3:31pm BP Systolic 140 mmHg BP Diastolic 72 mmHg Body Temperature 98.2 F Height 74 inches 6'2" 05/29/2013 3:08pm BP Systolic 128 mmHg BP Diastolic 72 mmHg 11/09/2012 11:15am BP Systolic 118 mmHg BP Diastolic 68 mmHg Body Temperature 96.7 F Height 74 inches 6'2" 10/03/2012 10:22am BP Systolic 118 mmHg BP Diastolic 70 mmHg Body Temperature 96.1 F Height 74 inches 6'2" 06/26/2012 3:57pm BP Systolic 110 mmHg BP Diastolic 42 mmHg Body Temperature 98.1 F Height 74 inches 6'2" 04/25/2012 2:22pm BP Systolic 120 mmHg BP Diastolic 80 mmHg Body Temperature 99.9 F 12/14/2011 1:46pm BP Systolic 118 mmHg BP Diastolic 76 mmHg Height 74 inches 6'2" 10/14/2011 11:12am BP Systolic 118 mmHg BP Diastolic 78 mmHg Body Temperature 97.8 F Height 74 inches 6'2" 07/12/2011 11:33am BP Systolic 130 mmHg BP Diastolic 70 mmHg Body Temperature 97.9 F Height 74 inches 6'2" Weight 212.00 lb BMI (Body Mass Index) 27.2 kg/m2 05/04/2011 2:53pm BP Systolic 138 mmHg BP Diastolic 78 mmHg Body Temperature 98.3 F Height 74 inches 6'2" Weight 215.00 lb BMI (Body Mass Index) 27.6 kg/m2 11/24/2010 2:19pm BP Systolic 124 mmHg BP Diastolic 72 mmHg Body Temperature 99.4 F Height 74 inches 6'2" Weight 213.00 lb BMI (Body Mass Index) 27.3 kg/m2 09/22/2010 11:13am BP Systolic 120 mmHg BP Diastolic 70 mmHg Body Temperature 98.5 F 05/12/2010 10:10am BP Systolic 114 mmHg BP Diastolic 70 mmHg Weight 216.00 lb 02/02/2010 1:58pm BP Systolic 127 mmHg BP Diastolic 84 mmHg Body Temperature 96.5 F Weight 208.00 lb 01/05/2010 10:03am BP Systolic 132 mmHg BP Diastolic 86 mmHg Body Temperature 98.4 F 12/29/2009 12:28pm BP Systolic 108 mmHg BP Diastolic 58 mmHg Height 74 inches 6'2" 11/12/2009 11:52am BP Systolic 110 mmHg BP Diastolic 60 mmHg Height 74 inches 6'2" Weight 219.00 lb BMI (Body Mass Index) 28.1 kg/m2 10/06/2009 11:45am BP Systolic 110 mmHg BP Diastolic 72 mmHg 12/19/2008 12:57pm BP Systolic 100 mmHg BP Diastolic 70 mmHg Body Temperature 97.9 F Height 74 inches 6'2" 11/28/2008 2:51pm BP Systolic 140 mmHg BP Diastolic 60 mmHg Body Temperature 98.8 F Height 74 inches 6'2" 11/18/2008 11:32am BP Systolic 12 mmHg BP Diastolic 60 mmHg Height 74 inches 6'2" Weight 214.00 lb BMI (Body Mass Index) 27.5 kg/m2 09/03/2008 3:22pm BP Systolic 130 mmHg BP Diastolic 76 mmHg Height 74 inches 6'2" Weight 213.00 lb BMI (Body Mass Index) 27.3 kg/m2 01/22/2008 2:59pm BP Systolic 108 mmHg BP Diastolic 66 mmHg Height 74 inches 6'2" Weight 209.00 lb BMI (Body Mass Index) 26.8 kg/m2 10/13/2007 11:45am BP Systolic 126 mmHg BP Diastolic 80 mmHg Height 74 inches 6'2" Weight 208.00 lb BMI (Body Mass Index) 26.7 kg/m2 08/17/2007 11:43am BP Systolic 118 mmHg BP Diastolic 74 mmHg Height 74 inches 6'2" Weight 213.00 lb BMI (Body Mass Index) 27.3 kg/m2 11/09/2006 11:46am BP Systolic 130 mmHg BP Diastolic 62 mmHg Height 74 inches 6'2" Weight 208.00 lb BMI (Body Mass Index) 26.7 kg/m2 11/02/2006 3:52pm BP Systolic 130 mmHg BP Diastolic 80 mmHg Height 74 inches 6'2" 11/01/2006 3:50pm Body Temperature 99.9 F Height 74 inches 6'2" 11/01/2006 3:34pm BP Systolic 124 mmHg BP Diastolic 78 mmHg Height 74 inches 6'2" Weight 214.00 lb BMI (Body Mass Index) 27.5 kg/m2 09/21/2006 3:34pm BP Systolic 120 mmHg BP Diastolic 60 mmHg Body Temperature 96.8 F Height 74 inches 6'2" 08/30/2006 2:35pm BP Systolic 118 mmHg BP Diastolic 72 mmHg Body Temperature 97.3 F Height 74 inches 6'2" 05/09/2006 9:20am BP Systolic 116 mmHg BP Diastolic 68 mmHg Height 74 inches 6'2" Weight 208.00 lb BMI (Body Mass Index) 26.7 kg/m2 10/26/2005 3:04pm BP Systolic 128 mmHg BP Diastolic 76 mmHg Height 74 inches 6'2" Weight 203.00 lb BMI (Body Mass Index) 26.1 kg/m2 Results Test Date Facility Test Result H/L Range Note General Health Panel 03/27/2019 [facility] TSH 0.90 mIU/L 0.40-4.50 1 [facility] [address] [facility]. [place], [place] [id number] [phone] T4,Free 1.0 ng/dL 0.8-1.8 CBC W/ Diff & PLT 03/27/2019 [facility] WBC 4.1 thous/L 3.8-10.8 [address] [place], [place] [id number] [phone] RBC 4.66 mill/L 4.20-5.80 Hemoglobin 14.4 g/dL 13.2-17.1 Hematocrit 43.1 % 38.5-50.0 MCV 92.5 FL 80.0-100.0 MCH 30.9 pg 27.0-33.0 MCHC 33.4 g/dL 32.0-36.0 RDW 12.7 % 11.0-15.0 Platelet Count 293 thous/L 140-400 MPV 10.4 FL 7.5-12.5 Neutrophils,Absolute 2400 cells/L [phone] Bands,Absolute PENDING Metamyelocytes,Absolute PENDING Myelocytes,Absolute PENDING Promyelocytes,Absolute PENDING Lymphocytes,Absolute 1210 cells/L 850-3900 Monocytes,Absolute 430 cells/L 200-950 Eosinophils,Absolute 70 cells/L 15-500 Basophils,Absolute 30 cells/L 0-200 Blast Cells,Absolute PENDING Nucleated RBC,Absolute PENDING Total Neutrophils,% 58.0 % 40-75 Bands,% PENDING Metamyelocytes,% PENDING Myelocytes,% PENDING Promyelocytes,% PENDING Total Lymphocytes,% 29.2 % 12-47 Reactive Lymphocytes PENDING Monocytes,% 10.4 % 4-12 Eosinophils,% 1.7 % 0-4 Basophils,% 0.7 % 0-1 2 Blasts,% PENDING Nucleated RBC PENDING Comment PENDING CMP W/GFR 03/27/2019 [facility] Sodium 142 mmol/L 135-[address] [place] [address] [phone] Potassium 4.4 mmol/L 3.5-5.3 Chloride 108 mmol/L 98-110 Carbon Dioxide 25 mmol/L 20-32 3 Calcium 9.1 mg/dL 8.6-10.3 Alkaline Phosphatase 42 U/L 40-115 Ast 12 U/L 10-35 Alt 14 U/L 9-46 Bilirubin,Total 0.6 mg/dL 0.2-1.2 Glucose 99 mg/dL 65-99 4 Urea Nitrogen (BUN) 20 mg/dL 7-25 Creatinine 1.08 mg/dL 0.70-1.33 5 BUN/Creatinine Ratio 18.6 6-22 Protein,Total 6.7 g/dL 6.1-8.1 Albumin 4.5 g/dL 3.6-5.1 Globulin,Calculated 2.2 g/dL 1.9-3.7 A/G Ratio 2.0 1.0-2.5 Egfr Non-Afr. [place] 78 ML/MIN/1.73M2 > Or=60 Egfr 91 ML/MIN/1.73M2 > Or=60 Poc Urinalysis 04/19/2018 [facility] Poc Glucose, Negative Negative [address] [place] [address] [phone] Poc Bilirubin, Urine Negative Negative Poc Ketone, Urine Negative Negative Poc Specific [place], Urine 1.025 Normal 1.010-1.030 Poc Blood, Urine Trace-intact Abnormal Negative Poc pH, Urine 6.0 Normal 5-9 Poc Protein, Urine Negative Negative Poc Urobilinogen, Urine 0.2 Negative Poc Nitrite, Urine Negative Negative Poc Leukocytes, Urine Negative Negative Poc Color, Urine Yellow Poc Clarity, Urine Clear 6 Urine Culture And 04/19/2018 [facility] Urine SEE RESULT 7, [address] [place] [address] [phone] Laboratory test 12/03/2017 [facility] Rapid Strep Negative Negative [address] [place] [address] [phone] Rapid Influenza A 12/03/2017 [facility] Influenza A NEGATIVE Negative 10 & B Molecular [address] [place] [address] [phone] Influenza B Molecular POSITIVE Abnormal Negative Order 12/22/2016 [facility] MRI L Spine <pending> [address] [place] [address] [phone] CBC Auto 12/02/2016 [facility] White Blood 6.0 10^3/uL Normal 3.5-[address] Count .8 [place] [address] [phone] Red Blood Count 5.04 10^6/uL Normal 4.0-5.4 Hemoglobin 14.9 g/dL Normal 14.0-18.0 Hematocrit 46 % Normal 42-52 Mean Corpuscular Volume 91 fL Normal 80-94 Mean Corpuscular Hemoglobin 30 pg Normal 27-31 Mean Corpuscular HGB Conc 33 g/dL Normal 31-36 Red Cell Distribution Width 13 % Normal 10.5-15 Platelet Count 272 10^3/uL Normal 150-450 Mean Platelet Volume 9 um3 Normal 7.4-10.4 Abs Neutrophils 4.1 10^3/uL Normal 1.5-7.7 Abs Lymphocytes 1.2 10^3/uL Normal 1.0-4.8 Abs Monocytes 0.4 10^3/uL Normal 0-0.8 Abs Eosinophils 0.1 10^3/uL Normal 0-0.6 Abs Basophils 0.1 10^3/uL Normal 0-0.2 Abs Nucleated RBC 0 10^3/uL Normal Granulocyte % 68.9 % Normal 38-83 Lymphocyte % 20.1 % Low 25-47 Monocyte % 7.5 % Normal 1-9 Eosinophil % 1.3 % Normal 0-6 Basophil % 2.2 % High 0-2 Nucleated Red Blood Cells % 0 Normal Laboratory test 12/02/2016 [facility] Erythrocyte Sed 7 mm/Hr Normal 0-[address] [place] [address] [phone] Anti Nuclear Antibody 0.1 U Normal 11 BMP W/O Egfr 01/24/2015 [facility] Sodium 140 mmol/L 135-[address] [place] [address] [phone] Potassium 4.6 mmol/L 3.5-5.3 Chloride 106 mmol/L 98-110 Carbon Dioxide 22 mmol/L 19-30 Calcium 9.4 mg/dL 8.6-10.3 Glucose 99 mg/dL 65-99 13 Urea Nitrogen 17 mg/dL 7-25 Creatinine 1.11 mg/dL 0.60-1.35 BUN/Creatinine Ratio 15.4 6-22 CBC W/ Diff & PLT 01/24/2015 [facility] WBC 3.9 thous/L 3.8-10.[address] [place] [address] [phone] RBC 4.95 mill/L 4.20-5.80 Hemoglobin 15.1 g/dL 13.2-17.1 Hematocrit 45.8 % 38.5-50.0 MCV 92.7 FL 80.0-100.0 MCH 30.5 pg 27.0-33.0 MCHC 32.9 g/dL 32.0-36.0 RDW 13.6 % 11.0-15.0 Platelet Count 298 thous/L 140-400 Platelet Sufficiency PENDING Neutrophils,Absolute 2450 cells/L [phone] Bands,Absolute PENDING Metamyelocytes,Absolute PENDING Myelocytes,Absolute PENDING Promyelocytes,Absolute PENDING Lymphocytes,Absolute 1170 cells/L 850-3900 Monocytes,Absolute 280 cells/L 200-950 Eosinophils,Absolute 30 cells/L 15-500 Basophils,Absolute 20 cells/L 0-200 Blast Cells,Absolute PENDING Nucleated RBC,Absolute PENDING Total Neutrophils,% 62 % Not Established Bands,% PENDING Metamyelocytes,% PENDING Myelocytes,% PENDING Promyelocytes,% PENDING Total Lymphocytes,% 30 % Not Established Monocytes,% 7 % Not Established Eosinophils,% 1 % Not Established Basophils,% 1 % Not Established Blasts,% PENDING Nucleated RBC PENDING RBC Morphology PENDING Anisocytosis PENDING Poikilocytosis PENDING Microcytosis PENDING Macrocytosis PENDING Polychromasia PENDING Hypochromasia PENDING Target Cells PENDING Basophilic Stippling PENDING Comment PENDING Lipid Panel 01/24/2015 [facility] Cholesterol 183 mg/dL 125-200 [address] [place] [facility] [place] [address] [phone] HDL Cholesterol 40 mg/dL > Or=40 Cholesterol/HDL Ratio 4.6 < Or=5.0 LDL Chol,Calculated 114 mg/dL <130 14 Triglycerides 143 mg/dL <150 Non-HDL Cholesterol 143 mg/dL 15 TSH & T4,Free 01/24/2015 [facility] TSH 0.92 mIU/L 0.40-4.[address] [place], [place] [id number] [phone] T4,Free 1.0 ng/dL 0.8-1.8 Laboratory test 01/24/2015 [facility] PSA,Total 0.3 NG/ML 0.0-4.0 [address] [place] [address] [phone] Comp Metabolic Panel 12/06/2013 [facility] Sodium 140 mmol/L 135-[address] [place] [address] [phone] Potassium 4.2 mmol/L 3.5-5.3 Chloride 103 mmol/L 98-110 Carbon Dioxide 27 mmol/L 19-30 Calcium 9.7 mg/dL 8.6-10.3 Alkaline Phosphatase 53 U/L 40-115 Ast 16 U/L 10-40 Alt 24 U/L 9-46 Bilirubin,Total 0.4 mg/dL 0.2-1.2 Glucose 85 mg/dL 65-99 17 Urea Nitrogen 16 mg/dL 7-25 Creatinine 1.14 mg/dL 0.60-1.35 BUN/Creatinine Ratio 13.6 6-22 Protein,Total 7.4 g/dL 6.1-8.1 Albumin 4.8 g/dL 3.6-5.1 Globulin,Calculated 2.6 g/dL 1.9-3.7 A/G Ratio 1.9 1.0-2.5 Egfr Non-Afr. [place] 76 ML/MIN/1.73M2 > Or=60 Egfr 88 ML/MIN/1.73M2 > Or=60 CBC W/ Diff & PLT 12/06/2013 [facility] WBC 4.4 thous/L 3.8-10.[address] [place] [address] [phone] RBC 4.89 mill/L 4.20-5.80 Hemoglobin 14.7 g/dL 13.2-17.1 Hematocrit 44.3 % 38.5-50.0 MCV 90.7 FL 80.0-100.0 MCH 30.1 pg 27.0-33.0 MCHC 33.2 g/dL 32.0-36.0 RDW 12.8 % 11.0-15.0 Platelet Count 336 thous/L 140-400 Neutrophils,Absolute 2640 cells/L 9558-2116 Lymphocytes,Absolute 1330 cells/L 850-3900 Monocytes,Absolute 380 cells/L 200-950 Eosinophils,Absolute 40 cells/L 15-500 Basophils,Absolute 20 cells/L 0-200 Total Neutrophils,% 60 % Not Established Total Lymphocytes,% 30 % Not Established Monocytes,% 9 % Not Established Eosinophils,% 1 % Not Established Basophils,% 0 % Not Established TSH & T4,Free 12/06/2013 [facility] TSH 0.76 mIU/L 0.40-4.[address] [place], [place] [id number] [phone] T4,Free 1.1 ng/dL 0.8-1.8 Laboratory test 12/06/2013 [facility] PSA,Total 0.4 NG/ML 0.0-4.0 18 finding [address] [place], [place] [id number] [phone] Lipid Panel 12/06/2013 [facility] Cholesterol 199 mg/dL 125-200 [address] [facility] [place], [place] [id number] [phone] HDL Cholesterol 41 mg/dL > Or=40 Cholesterol/HDL Ratio 4.9 < Or=5.0 LDL Chol,Calculated 114 mg/dL <130 19 Triglycerides 221 mg/dL High <150 Non-HDL Cholesterol 157 mg/dL 20 Comprehensive Metabolic 12/23/2011 [facility] Glucose 94 mg/dL 76-115 [address] [place], [place] [id number] [phone] BUN 14 mg/dL 5-23 Creatinine 1.0 mg/dL 0.5-1.4 Glom Filtration Rate, Estimate >60 mL/min >60 If >60 mL/min >60 21 BUN/Creat 14.0 ratio Sodium 143 mmol/L 136-145 [...] Phosphatase 44 U/L Low 50-136 LDL Cholesterol 12/23/2011 [facility] Cholesterol 148 mg/dL 120-[address] [place] [address] [phone] Triglycerides 70 mg/dL 16-231 HDL Cholesterol 39 mg/dL 29-83 LDL-Cholesterol 95 mg/dL 62-185 Laboratory test 12/23/2011 [facility] Bilirubin, Direct 0.1 mg/dL 0.1-0.[address] [place] [address] [phone] Thyroid Stim Hormone 1.14 uIU/mL 0.49-4.67 Free T4 0.90 ng/dL 0.71-1.85 CBS W/Automated 12/23/2011 [facility] White Blood 3.7 K/uL 3.4-10.[address] [place] [address] [phone] Red Blood Count 4.80 M/uL 4.20-5.80 Hemoglobin [...] % 33.0-73.0 Lymph % 33.8 % 17.0-56.0 [place] % 9.9 % 0.0-10.0 Eo% 1.6 % 0.0-5.0 Bas% 0.5 % 0.1-1.0 Neut# 2.02 K/uL 1.8-7.0 Lymph # 1.26 K/uL 1.2-4.0 [place] # 0.37 K/uL 0.0-0.6 Eos # 0.06 K/uL 0.0-0.5 Baso # 0.02 K/uL Low 0.1-0.2 Comp Metabolic Panel 10/29/2009 [facility] Sodium 142 mmol/L 135-[address] [place] [address] [phone] Potassium 4.3 mmol/L 3.5-5.3 Chloride 106 mmol/L 98-110 Carbon Dioxide 26 mmol/L 21-33 Calcium 9.5 mg/dL 8.6-10.2 Alkaline Phosphatase 56 U/L 40-115 Ast 13 U/L 10-40 Alt 21 U/L 9-60 Bilirubin,Total 0.5 mg/dL 0.2-1.2 Glucose 102 mg/dL High 65-99 22 Urea Nitrogen 18 mg/dL 7-25 Creatinine 1.14 mg/dL 0.78-1.34 BUN/Creatinine Ratio 15.9 6-22 Protein,Total 7.3 g/dL 6.2-8.3 Albumin 4.7 g/dL 3.6-5.1 Globulin,Calculated 2.6 g/dL 2.1-3.7 A/G Ratio 1.9 1.0-2.1 Egfr Non-Afr. [place] >60 ML/MIN/1.73M2 > Or=60 Egfr >60 ML/MIN/1.73M2 > Or=60 CBC W/ Diff & PLT 10/29/2009 [facility] WBC 3.8 thous/L 3.8-10.[address] [place] [address] [phone] RBC 4.69 mill/L 4.20-5.80 Hemoglobin 14.9 g/dL 13.2-17.1 Hematocrit 43.6 % 38.5-50.0 MCV 93.0 FL 80.0-100.0 MCH 31.7 pg 27.0-33.0 MCHC 34.1 g/dL 32.0-36.0 RDW 13.5 % 11.0-15.0 Platelet Count 235 thous/L 140-400 Platelet Sufficiency NORMAL Normal Neutrophils,Absolute 2190 cells/L 6715-8774 Bands,Absolute DNR cells/L 0-750 Metamyelocytes,Absolute DNR cells/L 0 Myelocytes,Absolute DNR cells/L 0 Promyelocytes,Absolute DNR cells/L 0 Lymphocytes,Absolute 1190 cells/L 850-3900 Monocytes,Absolute 360 cells/L 200-950 Eosinophils,Absolute 50 cells/L 15-500 Basophils,Absolute 30 cells/L 0-200 Blast Cells,Absolute DNR cells/L 0 Nucleated RBC,Absolute DNR cells/L 0 Total Neutrophils,% 58 % 38-80 Bands,% DNR % 0-10 Metamyelocytes,% DNR % Myelocytes,% DNR % Promyelocytes,% DNR % Total Lymphocytes,% 31 % 15-49 Monocytes,% 9 % 0-13 Eosinophils,% 1 % 0-8 Basophils,% 1 % 0-2 Blasts,% DNR % Nucleated RBC DNR /100WBC 0 RBC Morphology NORMAL Anisocytosis DNR Poikilocytosis DNR Microcytosis DNR Macrocytosis DNR Polychromasia DNR Hypochromasia DNR Target Cells DNR Basophilic Stippling DNR Comment DNR TSH & T4,Free 10/29/2009 [facility] TSH,3RD 1.23 mIU/L 0.40-4.[address] [place] [address] [phone] T4,Free 1.1 ng/dL 0.8-1.8 Lipid Panel 10/29/2009 [facility] Cholesterol 172 mg/dL 125-[address] [place] [address] [phone] HDL Cholesterol 43 mg/dL > Or=40 Triglycerides 75 mg/dL <150 Cholesterol/HDL Ratio 4.0 < Or=5.0 LDL Chol,Calculated 114 mg/dL <130 23 Laboratory test 10/29/2009 [facility] PSA,Total 0.3 NG/ML 0.0-4.0 [address] [place] [address] [phone] Laboratory test 2007 [facility] CK 80 U/L 26 -190 finding [address] [place] [address] [phone] Troponin-I 0.0 NG/ML 0.0-0.6 25 Liver Function 10/04/2007 [facility] Total Protein 6.4 g/dL 6.3-8.0 26 Tests [address] [place] [address] [phone] Albumin 4.0 g/dL 3.5-5.0 Bilirubin,Total 0.4 mg/dL 0.2-1.2 Bilirubin,Direct 0.1 mg/dL 0.1-0.4 Bilirubin,Indirect 0.3 mg/dL 0.0-0.9 Sgot/Ast 11 U/L Low 16-40 SGPT/Alt 34 U/L 30-65 Alkaline Phosphatase 53 U/L 50-136 LDL Cholesterol 10/04/2007 [facility] Cholesterol 153 mg/dL 120-200 Profile [address] [place] [address] [phone] Triglycerides 132 mg/dL 0-210 HDL Cholesterol 30 mg/dL Low 32-96 LDL-Cholesterol 97 mg/dL 62-185 Laboratory test finding 10/04/2007 [facility] Amylase 47 U/L 18-98 [address] [place] [address] [phone] Lipase 246 U/L 114-286 CK 105 U/L 26-190 Troponin-I 0.0 NG/ML 0.0-0.6 27 Vitamin B12 214 pg/mL 208-964 Folic Acid 16.4 ng/mL High 6.0-15.4 Thyroid Stim Hormone 1.58 uIU/mL 0.49-4.67 CBC 10/04/2007 [facility] White Blood Count 4.0 K/uL 3.4-10.5 [address] [place] [address] [phone] Red Blood Count 4.32 M/uL 4.20-5.80 Hemoglobin 13.1 gm/dL 12.8-17.0 Hematocrit 39.5 % 38.0-48.0 Mean Cell Volume 91.6 fL 80.0-96.0 Mean Corpuscular HGB 30.4 pg 27.0-33.0 Mean Corpuscular HGB Conc 33.2 g/dL 31.7-36.0 Platelet Count 263 K/uL 150-400 Red Cell Distri Width %CV 12.6 % 11.6-15.8 Mean Platelet Volume 6.7 fl 6.6-10.6 CBS W/Automated 10/04/2007 [facility] White Blood 5.8 K/uL 3.4-10.5 [address] [place] [address] [phone] Red Blood Count 4.59 M/uL 4.20-5.80 Hemoglobin 14.2 gm/dL 12.8-17.0 Hematocrit 41.7 % 38.0-48.0 Mean Cell Volume 90.8 fL 80.0-96.0 Mean Corpuscular HGB 31.1 pg 27.0-33.0 Mean Corpuscular HGB Conc 34.2 g/dL 31.7-36.0 Platelet Count 283 K/uL 150-400 Red Cell Distri Width %CV 12.5 % 11.6-15.8 Mean Platelet Volume 8.1 fl 6.6-10.6 Neut% 64.3 % 33.0-73.0 Lymph % 22.7 % 17.0-56.0 [place] % 9.5 % 0.0-10.0 Eo% 0.8 % 0.0-5.0 Bas% 0.4 % 0.1-1.0 [place]% 2.3 % 0.0-4.0 Neut# 3.7 K/uL 1.8-7.0 Lymph # 1.3 K/uL 1.2-4.0 [place] # 0.6 K/uL 0.0-0.6 Eos # 0.1 K/uL 0.0-0.5 Baso # 0.0 K/uL Low 0.1-0.2 Calos# 0.1 0.0-1.5 Laboratory test finding 10/04/2007 [facility] CK 146 U/L 26-[address] [place] [address] [phone] Troponin-I 0.0 NG/ML 0.0-0.6 29 Basic Metabolic 10/04/2007 [facility] Glucose 136 mg/ dL High 76-[address] [place], [place] [address] [phone] BUN 22 mg/dL 5-23 Creatinine 1.3 mg/dL 0.5-1.4 BUN/Creat 16.9 Sodium 140 mEq/L 136-145 Potassium 4.3 mEq/L 3.5-5.1 Chloride 106 mEq/L 98-107 Carbon Dioxide 28 mEq/L 21-32 Anion Gap 10 mEq/L 8-16 Calcium 9.0 mg/dL 8.5-10.1 Lipid Panel 04/29/2006 [facility] Cholesterol 198 mg/dL <200 [address] [place], [place] [address] [phone] HDL Cholesterol 46 mg/dL >40 31 Cholesterol/HDL Ratio 4.3 <5.0 LDL Chol,Calculated 126 mg/dL <130 32 Triglycerides 131 mg/dL <150 TSH & T4,Free 04/29/2006 [facility] TSH 0.71 mU/L 0.40-5.[address] [place], [place] [id number] [phone] T4,Free 1.2 ng/dL 0.8-1.8 Comp Metabolic Panel 04/29/2006 [facility] Sodium 144 mmol/L 135-[address] [place] [address] [phone] Potassium 5.0 mmol/L 3.5-5.3 Chloride 108 mmol/L 98-110 Carbon Dioxide 26 mmol/L 21-33 Calcium 10.0 mg/dL 8.5-10.4 Alkaline Phosphatase 50 U/L 20-125 Ast 14 U/L 3-50 Alt 19 U/L 3-60 Bilirubin,Total 0.6 mg/dL 0.2-1.5 Glucose 95 mg/dL 65-99 33 Urea Nitrogen 19 mg/dL 7-25 Creatinine 1.2 mg/dL 0.5-1.4 BUN/Creatinine Ratio 15.4 6-25 Protein,Total 7.5 g/dL 6.0-8.3 Albumin 4.9 g/dL 3.7-5.1 Globulin,Calculated 2.6 g/dL 2.2-4.2 A/G Ratio 1.9 0.8-2.0 GFR Estimated >60 ML/MIN/1.7 >59 34 CBC W/ Diff & PLT 04/29/2006 [facility] WBC 3.9 thous/L 3.8-10.8 [address] [place], [place] [address] [phone] RBC 4.88 mill/L 4.20-5.80 Hemoglobin 14.9 g/dL 13.2-17.1 Hematocrit 44.4 % 38.5-50.0 MCV 91.0 FL 80.0-100.0 MCH 30.6 pg 27.0-33.0 MCHC 33.6 g/dL 32.0-36.0 RDW 14.6 % 11.0-15.0 Platelet Count 294 thous/L 140-400 Platelet Sufficiency NORMAL Neutrophils,Absolute 2350 cells/L 8508-1757 Bands,Absolute DNR cells/L 0-750 Metamyelocytes,Absolute DNR cells/L 0 Myelocytes,Absolute DNR cells/L 0 Promyelocytes,Absolute DNR cells/L 0 Lymphocytes,Absolute 1130 cells/L 850-3900 Monocytes,Absolute 360 cells/L 200-950 Eosinophils,Absolute 40 cells/L 15-500 Basophils,Absolute 10 cells/L 0-200 Blast Cells,Absolute DNR cells/L 0 Nucleated RBC,Absolute DNR cells/L 0 Total Neutrophils,% 61 % 38-80 Bands,% DNR % 0-10 Metamyelocytes,% DNR % Myelocytes,% DNR % Promyelocytes,% DNR % Total Lymphocytes,% 29 % 15-49 Monocytes,% 9 % 0-13 Eosinophils,% 1 % 0-8 Basophils,% 0 % 0-2 Blasts,% DNR % Nucleated RBC DNR /100WBC 0 RBC Morphology NORMAL Anisocytosis DNR Poikilocytosis DNR Microcytosis DNR Macrocytosis DNR Polychromasia DNR Hypochromasia DNR Target Cells DNR Basophilic Stippling DNR Comment DNR 1 FASTING 2 Relative blood cell counts (%) should be compared with absolute cell counts (cells/mcL). Relative counts may not be clinically meaningful if the absolute count of one or more cell type is decreased. Reference ranges for relative cell counts derived from: A Manual of Laboratory and Diagnostics Tests, 9th Ed, [employer]o [employer]co, 2015. Pediatric Reference Intervals, 7th Ed, [employer], 2011. 3 Reference range for high altitude clients: 18-30 mmol/L 4 GLUCOSE REFERENCE RANGE BASED ON FASTING SPECIMEN. 5 The upper reference limit for Creatinine is approximately 13% higher for people identified as -[place] Island[place]. 6 Outpatient Physical Therapist Assistant: [id number] SEE RESULT BELOW Name: JAREN RAINEY : [address]: Mena Leung MD Acct: [id number] Unit: [id number] AGE: 52 Location: [facility] Re04/19/18 SEX: M Status: DEP ER SPEC: [id number] MIKAYLA: 04/19/18-[address] [facility] [address]: Janee Martinez NP REQ: [id number] RECD: 04/20/18-1006 STATUS: DAVY JUNIOR DR: Bk Leung MD _ SOURCE: URINE SPDESC: ORDERED: Urine Culture COMMENTS: [id number] Procedure Result Reported Site Urine Culture Final 04/21/18- 1404 ML No Growth (<1,000 CFU/mL) * ML - Main Lab . END OF REPORT DEPARTMENT OF PATHOLOGY, [address] [place] [address] Donny Arias M.D. Director [facility] # [id number] Outpatient Physical Therapist Assistant: [id number] Outpatient Physical Therapist Assistant: [id number] REFERENCE VALUE <=1.0 (Negative) Test Performed by: [facility] [place] [address] [place] Laborer: Eamon Hardin II, M.D., Ph.D. 12 FASTING 13 GLUCOSE REFERENCE RANGE BASED ON FASTING SPECIMEN. 14 LDL-CHOLESTEROL RISK CATEGORY* GOAL VERY HIGH (E.G. DIABETES + CVD) <70 MG/DL HIGH (DIABETICS; CHD RISK EQUIVALENTS) <100 MG/DL MODERATELY HIGH (MULTIPLE(2+) RISK FACTORS) <130 MG/DL 0 TO 1 RISK FACTORS <160 MG/DL * NCEP REPORT. CIRCULATION 2004; 110: 227-239 15 Target for non-HDL cholesterol is 30 mg/dL higher than LDL cholesterol target. 16 THIS TEST WAS PERFORMED USING THE SIEMENS CHEMILUMINESCENT METHOD. VALUES OBTAINED FROM DIFFERENT ASSAY METHODS CANNOT BE USED INTERCHANGEABLY. PSA LEVELS, REGARDLESS OF VALUE, SHOULD NOT BE INTERPRETED ABSOLUTE EVIDENCE OF THE PRESENCE OR ABSENCE OF DISEASE. 17 GLUCOSE REFERENCE RANGE BASED ON FASTING SPECIMEN. 18 THIS TEST WAS PERFORMED USING THE SIEMENS CHEMILUMINESCENT METHOD. VALUES OBTAINED FROM DIFFERENT ASSAY METHODS CANNOT BE USED INTERCHANGEABLY. PSA LEVELS, REGARDLESS OF VALUE, SHOULD NOT BE INTERPRETED ABSOLUTE EVIDENCE OF THE PRESENCE OR ABSENCE OF DISEASE. 19 LDL-CHOLESTEROL RISK CATEGORY* GOAL VERY HIGH (E.G. DIABETES + CVD) <70 MG/DL HIGH (DIABETICS; CHD RISK EQUIVALENTS) <100 MG/DL MODERATELY HIGH (MULTIPLE(2+) RISK FACTORS) <130 MG/DL 0 TO 1 RISK FACTORS <160 MG/DL * NCEP REPORT. CIRCULATION 2004; 110: 227-239 20 Target for non-HDL cholesterol is 30 mg/dL higher than LDL cholesterol target. 21 Note: Persistent reduction for 3 months or more in an eGFR <60 mL/min/1.73 m2 defines CKD. Patients with eGFR values >/=60 mL/min/1.73 m2 may also have CKD if evidence of persistent proteinuria is present. The original MDRD equation for estimated GFR is not valid for patients less than 18 years of age. Additional information may be found at www.[email or web address]. 22 GLUCOSE REFERENCE RANGE BASED ON FASTING SPECIMEN. 23 LDL-CHOLESTEROL RISK CATEGORY* GOAL VERY HIGH (E.G. DIABETES + CVD) <70 MG/DL HIGH (DIABETICS; CHD RISK EQUIVALENTS) <100 MG/DL MODERATELY HIGH (MULTIPLE(2+) RISK FACTORS) <130 MG/DL 0 TO 1 RISK FACTORS <160 MG/DL * NCEP REPORT. CIRCULATION 2004; 110: 227-239 24 PSA VALUES FROM DIFFERENT ASSAY METHODS CANNOT BE USED INTERCHANGEABLY. THIS ASSAY WAS PERFORMED USING THE Paper[employer] CHEMILUMINESCENCE METHOD. SERUM PSA LEVELS SHOULD NOT BE INTERPRETED ABSOLUTE EVIDENCE OF THE PRESENCE OR ABSENCE OF DISEASE. 25 0 - 0.6 NG/ML: NO EVIDENCE OF MYOCARDIAL INJURY 0.7 - 1.5 NG/ML: MILD ELEVATION, SUGGESTING POSSIBLE MYOCARDIAL INJURY > 1.5 NG/ML: CONSISTENT WITH MYOCARDIAL INJURY 26 Specimen: [id number] - TESTS: B12, FOL, TSH IS THE PATIENT FASTING? FASTING TEST: B12 QUERY: IS THE PATIENT FASTING? TEST: FOL QUERY: IS THE PATIENT FASTING? TEST: TSH 27 0 - 0.6 NG/ML: NO EVIDENCE OF MYOCARDIAL INJURY 0.7 - 1.5 NG/ML: MILD ELEVATION, SUGGESTING POSSIBLE MYOCARDIAL INJURY > 1.5 NG/ML: CONSISTENT WITH MYOCARDIAL INJURY 28 Specimen: [id number] - TESTS: C7, CPK, TROP SLI HEMOLYZED TEST: C7 QUERY : IS THE PATIENT FASTING? QUERY: CARD 1=GLU, BUN, CRE, NA, K, CL, CO2, CALCIUM + GAP TEST: CPK TEST: TROP 29 0 - 0.6 NG/ML: NO EVIDENCE OF MYOCARDIAL INJURY 0.7 - 1.5 NG/ML: MILD ELEVATION, SUGGESTING POSSIBLE MYOCARDIAL INJURY > 1.5 NG/ML: CONSISTENT WITH MYOCARDIAL INJURY 30 FASTING 31 HDL REFERENCE RANGES ADULTS (20 YEARS & OLDER) DESIRABLE: > OR=60 MG/DL HIGHER RISK: <40 MG/DL 32 LDL-CHOLESTEROL RISK CATEGORY* GOAL VERY HIGH (E.G. DIABETES + CVD) <70 MG/DL HIGH (DIABETICS; CHD RISK EQUIVALENTS) <100 MG/DL MODERATELY HIGH (MULTIPLE(2+) RISK FACTORS) <130 MG/DL 0 TO 1 RISK FACTORS <160 MG/DL * NCEP REPORT. CIRCULATION 2004; 110: 227-239 33 GLUCOSE REFERENCE RANGE BASED ON FASTING SPECIMEN. 34 THE GFR ESTIMATE IS NOT ADJUSTED FOR RACE, IF THE PATIENT'S RACE IS -[place], THE GFR ESTIMATE MUST BE MULTIPLIED BY A FACTOR OF 1.21. Procedures Date Code Description Status 04/12/2016 14020 Non-Invcorrotid/Comp /Bilat Study Completed 04/12/2016 07457 Echocardiography Completed 01/24/2015 12583 Spirometry Graphic Record/Max Voluntary Vent Completed 01/24/2015 44475 EKG-Tracing & Report Completed 01/23/2015 98818 Non-Invcorrotid/Comp /Bilat Study Completed 01/23/2015 09272 Echocardiography Completed 12/06/2013 14967 Spirometry Graphic Record/Max Voluntary Vent Completed 12/06/2013 41132 Holter Monitor Office Completed 12/06/2013 29586 EKG-Tracing & Report Completed 11/19/2013 07358 Non-Invcorrotid/Comp /Bilat Study Completed 11/19/2013 82214 Echocardiography Completed 12/23/2011 44776 EKG-Tracing & Report Completed 12/20/2011 95254 Echocardiography Completed 10/29/2009 11142 EKG-Tracing & Report Completed 10/29/2009 12235 Holter Monitor Office Completed 10/29/2009 43417 PFT Evaluation Completed 10/27/2009 98408 Echocardiography Completed 12/14/2006 97824 PFT Evaluation Completed 10/31/2006 89446 PFT Evaluation Completed 04/29/2006 07574 Spirometry Graphic Record/Max Voluntary Vent Completed 04/29/2006 90351 Non-Invcorrotid/Comp /Bilat Study Completed 04/29/2006 48010 Doppler Color Flow Velocity Completed 04/29/2006 30876 Doppler/ECHO Completed 04/29/2006 00645 ECHO-2D W/Wo M-Mode Completed 04/29/2006 37167 Holter Monitor Office Completed 04/29/2006 38398 EKG-Tracing & Report Completed 06/03/2004 10450 Doppler Color Flow Velocity Completed 06/03/2004 97482 Doppler/ECHO Completed 06/03/2004 12980 ECHO-2D W/Wo M-Mode Completed 05/22/2004 03266 EKG-Tracing & Report Completed Encounters Type Date Location Provider Dx Diagnosis Office Visit 04/17/2019 Main Office Bk Gonsalez I11.9 Hypertensive heart 11:30a disease without heart failure Office Visit 03/22/2019 Main Office Bk Gonsalez I11.9 Hypertensive heart 12:00p disease without heart failure Office Visit 01/11/2019 Main Office Sybil Gonsalez M.D. J30.1 Allergic rhinitis due 3:15p to pollen F43.21 Adjustment disorder with depressed mood Office Visit 12/18/2018 12:45p Main Office Casimiro Washington MD J30.9 Allergic rhinitis, unspecified J01.90 Acute sinusitis, unspecified J02.9 Acute pharyngitis, unspecified Office Visit 05/30/2018 11:30a Main Office Bk Gonsalez M54.2 Cervicalgia G25.0 Essential tremor G43.909 Migraine, unsp, not intractable, without status migrainosus E78.5 Hyperlipidemia, unspecified Office Visit 03/29/2018 2:15p Main Office Casimiro Washington MD J20.9 Acute bronchitis, unspecified R05 Cough J01.90 Acute sinusitis, unspecified Office Visit 12/12/2017 3:30p Main Office Bk Gonsalez R05 Cough J10.00 Flu due to oth ident flu virus w unsp type of pneumonia J20.9 Acute bronchitis, unspecified Office Visit 10/18/2017 3:30p Main Office Bk Gonsalez K21.9 Gastro- esophageal reflux disease without esophagitis G25.0 Essential tremor G43.909 Migraine, unsp, not intractable, without status migrainosus E78.5 Hyperlipidemia, unspecified Office Visit 07/18/2017 11:30a Main Office Bk Gonsalez J20.9 Acute bronchitis, unspecified Office Visit 06/15/2017 11:20a Main Office Bk Gonsalez A09 Infectious gastroenteritis and colitis, unspecified L71.9 Rosacea, unspecified Office Visit 03/01/2017 3:30p Main Office Bk Gonsalez J20.9 Acute bronchitis, unspecified Office Visit 12/20/2016 1:40p Main Office Bk Gonsalez R09.1 Pleurisy Office Visit 12/13/2016 3:20p Main Office Bk Gonsalez R09.1 Pleurisy Office Visit 12/06/2016 3:30p Main Office Bk Gonsalez R09.1 Pleurisy Office Visit 07/26/2016 11:40a Main Office Bk Gonsalez K21.9 Gastro- esophageal reflux disease without esophagitis I34.0 Nonrheumatic mitral (valve) insufficiency Office Visit 07/19/2016 3:00p Main Office Bk Gonsalez J01.90 Acute sinusitis, unspecified Office Visit 07/09/2016 4:00p Main Office Casimiro Washington MD J01.90 Acute sinusitis, unspecified Office Visit 05/18/2016 3:00p Main Office Bk Gonsalez I34.0 Nonrheumatic mitral (valve) insufficiency K21.9 Gastro-esophageal reflux disease without esophagitis G25.0 Essential tremor K58.0 Irritable bowel syndrome with diarrhea G43.909 Migraine, unsp, not intractable, without status migrainosus Office Visit 05/05/2016 10:50a Main Office Bk Gonsalez I34.0 Nonrheumatic mitral (valve) insufficiency I65.23 Occlusion and stenosis of bilateral carotid arteries K21.9 Gastro-esophageal reflux disease without esophagitis F41.1 Generalized anxiety disorder G25.0 Essential tremor K58.0 Irritable bowel syndrome with diarrhea G43.909 Migraine, unsp, not intractable, without status migrainosus R10.9 Unspecified abdominal pain Z00.00 Encntr for general adult medical exam w/o abnormal findings Office Visit 03/02/2016 1:30p Main Office Bk Gonsalez E78.5 Hyperlipidemia, unspecified K21.9 Gastro-esophageal reflux disease without esophagitis F41.1 Generalized anxiety disorder G25.0 Essential tremor Office Visit 10/06/2015 3:00p Main Office Bk Gonsalez F41.1 Generalized anxiety disorder E78.5 Hyperlipidemia, unspecified I34.0 Nonrheumatic mitral (valve) insufficiency K21.9 Gastro-esophageal reflux disease without esophagitis Office Visit 08/11/2015 3:30p Main Office Bk Gonsalez K58.0 Irritable bowel syndrome with diarrhea Office Visit 07/31/2015 3:30p Main Office Sybil Gonsalez, J20.2 Acute bronchitis due M.D. to streptococcus Office Visit 03/03/2015 11:40a Main Office Bk Gonsalez 465.9 URI Upper Respiratory Infections Acute Unspec Sites Office Visit 02/25/2015 11:30a Main Office Bk Gonsalez 465.9 URI Upper Respiratory Infections Acute Unspec Sites Office Visit 02/11/2015 11:20a Main Office Bk Gonsalez 272.4 Hyperlipidemia Other Unspec 300.02 Anxiety Disorder Generalized 530.81 Esophageal Reflux 333.1 Tremor Essential & Other Forms Office Visit 01/07/2015 11:50a Main Office Bk Gonsalez 272.4 Hyperlipidemia Other Unspec 424.0 Mitral Valve Disorder 300.02 Anxiety Disorder Generalized Office Visit 07/30/2014 3:10p Main Office Bk Gonsalez 272.4 Hyperlipidemia Other Unspec 424.0 Mitral Valve Disorder 300.02 Anxiety Disorder Generalized Office Visit 04/24/2014 11:30a Main Office Bk Gonsalez 272.4 Hyperlipidemia Other Unspec 424.0 Mitral Valve Disorder 530.81 Esophageal Reflux 300.02 Anxiety Disorder Generalized Office Visit 12/12/2013 2:00p Main Office Bk Gonsalez 272.4 Hyperlipidemia Other Unspec 272.40 Hyperlipidemia 424.0 Mitral Valve Disorder 530.81 Esophageal Reflux 300.02 Anxiety Disorder Generalized 346.90 Migraine Unspec W/O Intractable Office Visit 10/30/2013 2:40p Main Office Bk Gonsalez 333.1 Tremor Essential & Other Forms 530.81 Esophageal Reflux 300.02 Anxiety Disorder Generalized Office Visit 10/26/2013 10:30a Main Office Casimiro Washington MD 461.8 Sinusitis Acute Other 333.1 Tremor Essential & Other Forms 300.02 Anxiety Disorder Generalized GENERAL General Office Visit 06/19/2013 3:20p Main Office Bk Gonsalez 466.0 Bronchitis Acute Office Visit 05/29/2013 3:00p Main Office Bk Gonsalez 785.2 Murmur Cardiac Undiagnosed 300.02 Anxiety Disorder Generalized Office Visit 11/09/2012 11:00a Main Office Sybil Gonsalez 466.0 Bronchitis Acute M.D. Office Visit 10/03/2012 10:10a Main Office Bk Gonsalez 466.0 Bronchitis Acute Office Visit 06/26/2012 3:30p Main Office Bk Gonsalez 466.0 Bronchitis Acute Office Visit 04/25/2012 2:20p Main Office Bk Gonsalez 466.0 Bronchitis Acute Office Visit 04/04/2012 1:40p Main Office Bk Gonsalez 333.1 Tremor Essential & Other Forms 272.4 Hyperlipidemia Other Unspec 530.81 Esophageal Reflux 346.90 Migraine Unspec W/O Intractable Office Visit 12/14/2011 1:40p Main Office Bk Gonsalez 578.1 Blood In Stool Melena 569.42 Pain Anal Or Rectal 272.40 Hyperlipidemia 785.2 Murmur Cardiac Undiagnosed 784.0 Headache 272.00 Hypercholestrolemia 530.81 Esophageal Reflux 465.9 URI Upper Respiratory Infections Acute Unspec Sites Office Visit 10/14/2011 11:15a Main Office Casimiro Washington MD 465.9 URI Upper Respiratory Infections Acute Unspec Sites GENERAL General Office Visit 07/12/2011 11:20a Main Office Bk Gonsalez 784.0 Headache Office Visit 05/04/2011 2:40p Main Office Bk Gonsalez 466.0 Bronchitis Acute 272.40 Hyperlipidemia 785.2 Murmur Cardiac Undiagnosed 784.0 Headache 272.00 Hypercholestrolemia 530.81 Esophageal Reflux Office Visit 11/24/2010 2:20p Main Office Bk Gonsalez 466.0 Bronchitis Acute Office Visit 05/12/2010 10:00a Main Office Bk Gonsalez 346.90 Migraine Unspec W/O Intractable 272.4 Hyperlipidemia Other Unspec 424.0 Mitral Valve Disorder Office Visit 02/02/2010 1:45p Main Office Casimiro Washington MD 461.9 Sinusitis Acute Unspec 466.0 Bronchitis Acute GENERAL General Office Visit 01/21/2010 10:30a Main Office Bk Gonsalez 462 Pharyngitis Acute Office Visit 01/05/2010 10:10a Main Office Bk Gonsalez 466.0 Bronchitis Acute Office Visit 12/29/2009 11:50a Main Office Bk Gonsalez 346.90 Migraine Unspec W/O Intractable Office Visit 11/12/2009 11:50a Main Office Bk Gonsalez 785.10 Palpitations 272.4 Hyperlipidemia Other Unspec 493.90 Asthma Unspec W/O Status Asthmaticus 424.0 Mitral Valve Disorder V03.7 Tetanus Toxoid Vaccination & Inoculation Office Visit 10/06/2009 11:40a Main Office Bk Gonsalez 466.00 Acute Bronchitis Office Visit 12/19/2008 12:00p Main Office Sybil Gonsalez 466.00 Acute Bronchitis M.D. Office Visit 11/28/2008 2:45p Main Office Casimiro Washington MD 460.00 Upper Respiratory Infection Office Visit 11/18/2008 11:30a Main Office Bk [facility]ons[facility] GENERAL General 333.1 Tremor Essential & Other Forms 300.02 Anxiety Disorder Generalized V03.2 Tuberculosis (BCG) Vaccination & Inoculation 346.90 Migraine Unspec W/O Intractable Office Visit 09/03/2008 3:10p Main Office Bk Gonsalez 333.1 Tremor Essential & Other Forms 300.02 Anxiety Disorder Generalized Office Visit 01/22/2008 2:40p Main Office Bk Gonsalez 382.9 Otitis Media Unspec Office Visit 10/13/2007 11:30a Main Office Casimiro Washington MD 789.00 Pain Abdominal Unspec Site Office Visit 08/17/2007 11:20a Main Office Bk Gonsalez 493.90 Asthma Unspec W/O Status Asthmaticus 455.6 Hemorrhoids Unspec W/O Complication 785.9 Cardiovascular Symptoms Other 333.1 Tremor Essential & Other Forms 346.90 Migraine Unspec W/O Intractable 424.0 Mitral Valve Disorder Office Visit 11/09/2006 11:30a Main Office Bk Gonsalez 493.90 Asthma Unspec W/O Status Asthmaticus 682.90 Cellulitis 490 Bronchitis Acute Or Chronic Not Spec 455.6 Hemorrhoids Unspec W/O Complication Office Visit 11/02/2006 3:30p Main Office Bk Gonsalez 682.90 Cellulitis 272.00 Hypercholestrolemia 784.0 Headache 530.81 Esophageal Reflux Office Visit 11/01/2006 3:15p Main Office Sybil Gonsalez, 487.1 Influenza W / Other M.D. Respiratory Manifestations 455.6 Hemorrhoids Unspec W/O Complication Office Visit 09/21/2006 3:20p Main Office Bk Gonsalez 490 Bronchitis Acute Or Chronic Not Spec Office Visit 08/30/2006 2:20p Main Office Bk Gonsalez 780.40 Vertigo Dizziness Office Visit 05/09/2006 9:00a Main Office Bk Gonsalez 785.10 Palpitations 785.9 Cardiovascular Symptoms Other 530.81 Esophageal Reflux 477.9 Rhinitis Allergic Cause Unspec 333.1 Tremor Essential & Other Forms 302.72 Psychosexual Dysfunction W/ Inhibited Sexual Excitement 346.90 Migraine Unspec W/O Intractable 278.00 Obesity Unspec Office Visit 10/26/2005 3:00p Main Office Bk Gonsalez 490 Bronchitis Acute Or Chronic Not Spec 272.40 Hyperlipidemia 272.00 Hypercholestrolemia 477.9 Rhinitis Allergic Cause Unspec 530.81 Esophageal Reflux 333.1 Tremor Essential & Other Forms 302.72 Psychosexual Dysfunction W/ Inhibited Sexual Excitement 346.90 Migraine Unspec W/O Intractable 786.59 Pain Chest Other 592.0 Calculus Of Kidney 729.1 Myalgia & Myositis Unspec Office Visit 10/27/2004 3:30p Main Office Bk Gonsalez 272.40 Hyperlipidemia 272.00 Hypercholestrolemia Office Visit 07/28/2004 3:40p Main Office Bk Gonsalez 460.00 Upper Respiratory Infection Office Visit 05/25/2004 3:20p Main Office Bk Gonsalez 784.0 Headache Plan of Treatment Future Appointment(s):05/15/2019 11:30 am - [facility] at [id number] - Chitra Gonsalez11.9 Hypertensive heart disease without heart failureComments :CONT. TO MONITOR BP, CONT. LOW SALT DIET Discussed lifestyle factors and role of diet and excerns incontrol of disease and treatment goals and targets. Medication side effects and compliance issues addressed as indicated. The importance of ongoing self monitoring of BP and the symptoms of complications such as TIA, CVA and AMI reviewed. The importance of reporting changes in between visits and side effects stressed. monitoring of patient provided BP checks and laboratory tests related to medicationreviewed. Discussed lifestyle factors and role of diet and excerns in control of disease and treatment goals and targets. Medication side effects and compliance issues addressed as indicated. The importance of ongoing self monitoring of BP and the symptoms of complications such as TIA, CVA and AMI reviewed. The importance of reporting changes in between visits and side effects stressed. monitoring of patient provided BP checks and laboratory tests related to medication reviewed.
--- OUTSIDE RECORDS SUMMARY | 2019-05-01 09:06 | XMS REPORT | Continuity of Care Document ---
:1965 External Reference #:[id number] Author Name Isabelle Silva Care Team Providers Name Role Phone Bk Gonsalez MD Primary Care Physician Unavailable Payers Date Identification Numbers Payment Provider Subscriber Policy Number: [id number] [employer] Jaren Rainey PayID: [id number] [address] [place] [address] [place] [id number] Problems Active Problems Provider Date Hyperlipidemia Bk Gonsalez Onset: 10/08/2005 Heart murmur Bk Gonsalez Onset: 10/08/2005 Headache Bk Gonsalez Onset: 10/08/2005 Pure hypercholesterolemia Bk Gonsalez Onset: 10/08/2005 Gastroesophageal reflux disease Bk Gonsalez [...] 10/25/2005 Amoxicillin 10/25/2005 Azithromycin 11/09/2012 Bactrim 07/19/2016 Medications Active Medications SIG Qnty Indications Ordering Provider Date Lisinopril 1 by mouth every 30tabs I11.9 Bk Gonsalez 03/22/2019 5mg day Tablets [place] Nasal [place] spray twice daily 66ml Casimiro Washington MD 12/18/2018 to each nare 0.65% Solution Paxil 1 by mouth every 90tabs F41.1 Sybil Gonsalez M.D. 03/02/2016 20mg Tablets day Exedrin As needed for Unknown headaches History Medications Levofloxacin 1 by mouth every 10tabs J20.9 [...] Hydrocodone 5ml by mouth every 473ml J20.9 Bk Gonsalez 12/12/2017 - Polistirex/Chlorphenir q6hr as needed 03/29/2018 [...] work until Bk Gonsalez 07/18/2017 - 07/21 2017 05/30/2018 Tussionex Pennkinetic 1 TSP Every 12 115ml Bk Gonsalez 07/18/2017 - Extended Release Hours as Needed 03/29/2018 10-8mg/5ML Suer Levofloxacin 1 by mouth every 10tabs J20.9 Bk Gonsalez 03/01/2017 - 500mg day 06/15/2017 Tablets Naproxen 1 by mouth twice a 180tabs R09.1 Bk Gonsalez 12/20/2016 - 500mg Tablets day as needed 05/30/2018 Gabapentin 1 by mouth 3 x 90caps R09.1 Bk Gonsalez 12/20/2016 - 100mg Capsules daily 06/15/2017 Tramadol HCL 1 by mouth every 6 30tabs R09.1 Bk Gonsalez 12/06/2016 - 50mg Tablets hours as needed 12/13/2016 pain Levaquin 1 PO Q Day 7tabs J01.90 Bk Gonsalez 07/19/2016 - 500mg Tablets 07/26/2016 Bactrim DS 1 by mouth twice a 20tabs J20.2 Casimiro Washington MD 07/09/2016 - 800-160mg day 07/19/2016 Tablets Zoloft 1 by mouth every 30tabs F41.1 Bk Gonsalez 10/06/2015 - 25mg Tablets night at bedtime 03/02/2016 Metamucil [facility] tid K58.0 Bk Gonsalez 08/11/2015 - Fiber 03/29/2018 55.46% Powder Bactrim DS 1 by mouth twice a 20tabs J20.2 Sybil Gonsalez, 07/31/2015 - 800-160mg day M.D. 08/11/2015 Tablets Cheratussin ac 1 teaspoon every 4 120ml J20.2 Sybil Gonsalez, 07/31/2015 - hour as needed M.D. 10/06/2015 100-10mg/5ML Syrup cough Cheratussin ac 1 teaspoon every 4 120ml GaBk ramirez 03/04/2015 - hour as needed 07/31/2015 100-10mg/5ML Syrup cough Hydrocodone 5 milliliters every 480ml 465.9 GaussBk 03/03/2015 - Bitartrate/Chlorphenir 6 hour as needed 03/04/2015 amine Maleate/Pse 60-4-5mg/5ML Solution Robitussin Chest 1 teaspoon by mouth 118ml 465.9 GaussBk 02/25/2015 - Congestion every 6hr as needed 03/03/2015 100mg/5ML Syrup Bactrim DS 1 by mouth twice a 20tabs 465.9 GaussBk 02/25/2015 - 800-160mg day 07/31/2015 Tablets Work Note patient off work Bk Gonsalez 02/25/2015 - from 03/03/15 till 03/02/2016 03/05/15 Bactrim DS 1 po bid 14tabs 466.0 Casimiro Washington MD 10/26/2013 - 800-160mg 11/21/2013 Tablets Doxycycline 1 po bid 20caps ColtonBk ramirez 06/21/2013 - 100mg Caps 10/26/2013 Part Robitussin [...] today, 1 po 5tabs 466.0 GaBk ramirez 10/03/2012 - 250mg day 2 thru 11/09/2012 [...] 2 po today, 1 po 5tabs 466.0 GaussBk 04/25/2012 - 250mg day 2 thru 06/26/2012 Tablets Gabapentin 1 PO Q Day For Week 65caps 333.1 GaBk ramirez 04/04/2012 - 100mg Capsules One 2 PO [...] Work Note jaren will be off Sybil Gnosalez 07/12/2011 - work Aug 01, 2015 M.DKatie [...] Washington MD 02/02/2010 - 333mg 05/12/[address] [place] 1 po bid with food 20tabs 466.0 Bk Gonsalez 01/05/2010 - 333mg 02/02/2010 Tablets Work Note jaren will be off Bk Gonsalez 01/05/2010 - work for 3 days 05/12/2010 Sumatriptan Succinate 1 po q 6 hr 10tabs 346.90 GaBk ramirez 12/29/2009 - 05/12/2010 25mg Tablets Tramadol HCL 1 po q 6 hours pain 25tabs 346.90 GaBk ramirez 12/29/2009 - 50mg Tablets prn 05/12/2010 Work Note jaren will be off Bk Gonsalez 12/29/2009 - work for 2 days 05/12/2010 Erythromycin Base 1 po bid with food 20tabs 466.00 Bk Gonsalez 10/06/2009 - 333mg 11/12/[address] Maurer Excuse the above is 466.00 Sybil Gonsalez, [...] Cipro 1 po bid 14tabs 466.00 Sybil Gonsalez 12/19/2008 - 500mg Tablets M.D. 10/06/2009 Zithromax [...] 10/25/2005 - 40mg Capsules 10/26/2005 Flonase 1 [place] To Each 1units Bk Gonsalez 10/25/2005 - 50mcg/[place] Nare qd 05/09/2006 Suspension Paxil 1 po [...] CPT Code Status Date Vaccine Lot # [id number] Given 11/12/2009 Tetanus Shot [id number] Given 10/17/1997 DT Immunization DIP/Tet (History Only) [...] TSH 0.90 mIU/L 0.40-4.50 [address] [facility] [address] [place] [address] [phone] T4,Free 1.0 ng/dL 0.8-1.8 CBC W/ Diff & PLT 03/27/2019 [facility] WBC 4.1 thous/L 3.8-10.8 [address] [facility] [place] [address] [phone] RBC 4.66 mill/L 4.20-5.80 Hemoglobin 14.4 g/dL 13.2-17.1 Hematocrit 43.1 % 38.5-50.0 MCV 92.5 FL 80.0-100.0 MCH 30.9 pg 27.0-33.0 MCHC 33.4 g/dL 32.0-36.0 RDW 12.7 % 11.0-15.0 Platelet Count 293 thous/L 140-400 MPV 10.4 FL 7.5-12.5 Neutrophils,Absolute 2400 cells/L 0404-1504 Bands,Absolute PENDING Metamyelocytes,Absolute PENDING Myelocytes,Absolute PENDING Promyelocytes,Absolute [...] [facility] Sodium 142 mmol/L 135-[address] [place] [address] [phone] Potassium 4.4 mmol/L 3.5-5.3 Chloride 108 mmol/L [...] 1.9-3.7 A/G Ratio 2.0 1.0-2.5 Egfr Non-Afr. Samoan 78 ML/MIN/1.73M2 > Or=60 Egfr 91 ML/MIN/1.73M2 > Or=60 Poc Urinalysis 04/19/2018 [facility] Poc Glucose, Negative Negative [address] [place] [address] [phone] Poc Bilirubin, Urine Negative Negative Poc Ketone, Urine Negative Negative Poc Specific Clay, Urine 1.025 Normal 1.010-1.030 Poc Blood, Urine Trace-intact Abnormal Negative Poc pH, Urine 6.0 Normal 5-9 Poc Protein, Urine Negative Negative Poc Urobilinogen, Urine 0.2 Negative Poc Nitrite, Urine Negative Negative Poc Leukocytes, Urine Negative Negative Poc Color, Urine Yellow Poc Clarity, Urine Clear 6 Urine Culture And 04/19/2018 [facility] Urine SEE RESULT 7, [address] [place] [address] [phone] Laboratory test 12/03/2017 [facility] Rapid Strep Negative Negative [address] [place] [address] [phone] Rapid Influenza A 12/03/2017 [facility] Influenza A NEGATIVE Negative 10 & B Molecular [address] [place] [address] [phone] Influenza B Molecular POSITIVE Abnormal Negative Order 12/22/2016 [facility] MRI L Spine <pending> [address] [place] [address] [phone] CBC Auto 12/02/2016 [facility] White Blood 6.0 10^3/uL Normal 3.5-[address] Count [address]8 [place] [address] [phone] Red Blood Count 5.04 10^6/uL Normal 4.0-5.4 [...] Cells % 0 Normal Laboratory test 12/02/2016 [facility] Erythrocyte Sed 7 mm/Hr Normal 0-[address] [place] [address] [phone] Anti Nuclear Antibody 0.1 U Normal 11 BMP W/O Egfr 01/24/2015 [facility] Sodium 140 mmol/L 135-[address] [place] [address] [phone] Potassium 4.6 mmol/L 3.5-5.3 Chloride 106 mmol/L 98-110 Carbon Dioxide 22 mmol/L 19-30 Calcium 9.4 mg/dL 8.6-10.3 Glucose 99 mg/dL 65-99 13 Urea Nitrogen 17 mg/dL 7-25 Creatinine 1.11 mg/dL 0.60-1.35 BUN/Creatinine Ratio 15.4 6-22 CBC W/ Diff & PLT 01/24/2015 [facility] WBC 3.9 thous/L 3.8-10.[address] [place] [address] [phone] RBC 4.95 mill/L 4.20-5.80 Hemoglobin 15.1 g/dL 13.2-17.1 Hematocrit 45.8 % 38.5-50.0 MCV 92.7 FL 80.0-100.0 MCH 30.5 pg 27.0-33.0 MCHC 32.9 g/dL 32.0-36.0 RDW 13.6 % 11.0-15.0 Platelet Count 298 thous/L 140-400 Platelet Sufficiency PENDING Neutrophils,Absolute 2450 cells/L 3311-4499 Bands,Absolute PENDING Metamyelocytes,Absolute PENDING Myelocytes,Absolute PENDING Promyelocytes,Absolute [...] [facility] Cholesterol 183 mg/dL 125-200 6 [place] [facility] [place] [address] [phone] HDL Cholesterol 40 mg/dL > Or=40 Cholesterol/HDL Ratio 4.6 < Or=5.0 LDL Chol,Calculated 114 mg/dL <130 14 Triglycerides 143 mg/dL <150 Non-HDL Cholesterol 143 mg/dL 15 TSH & T4,Free 01/24/2015 [facility] TSH 0.92 mIU/L 0.40-4.50 6 [place], [place] [id number] [phone] T4,Free 1.0 ng/dL 0.8-1.8 Laboratory test 01/24/2015 [facility] PSA,Total 0.3 NG/ML 0.0-4.0 16 finding 6 [place], [place] [id number] [phone] Comp Metabolic Panel 12/06/2013 [facility] Sodium 140 mmol/L 135-146 [address] [place] [address] [phone] Potassium 4.2 mmol/L 3.5-5.3 Chloride 103 mmol/L [...] 1.9-3.7 A/G Ratio 1.9 1.0-2.5 Egfr Non-Afr. Samoan 76 ML/MIN/1.73M2 > Or=60 Egfr 88 ML/MIN/1.73M2 > Or=60 CBC W/ Diff & PLT 12/06/2013 [facility] WBC 4.4 thous/L 3.8-10.8 6 [place] [address] [phone] RBC 4.89 mill/L 4.20-5.80 Hemoglobin 14.7 g/dL 13.2-17.1 Hematocrit 44.3 % 38.5-50.0 MCV 90.7 FL 80.0-100.0 MCH 30.1 pg 27.0-33.0 MCHC 33.2 g/dL 32.0-36.0 RDW 12.8 % 11.0-15.0 Platelet Count 336 thous/L 140-400 Neutrophils,Absolute 2640 cells/L 7406-6977 Lymphocytes,Absolute 1330 cells/L 850-3900 Monocytes,Absolute 380 cells/L 200-950 Eosinophils,Absolute 40 cells/L 15-500 Basophils,Absolute 20 cells/L 0-200 Total Neutrophils,% 60 % Not Established Total Lymphocytes,% 30 % Not Established Monocytes,% 9 % Not Established Eosinophils,% 1 % Not Established Basophils,% 0 % Not Established TSH & T4,Free 12/06/2013 [facility] TSH 0.76 mIU/L 0.40-4.50 6 [place] [address] [phone] T4,Free 1.1 ng/dL 0.8-1.8 Laboratory test 12/06/2013 [facility] PSA,Total 0.4 NG/ML 0.0-4.0 18 finding [address] [place] [address] [phone] Lipid Panel 12/06/2013 [facility] Cholesterol 199 mg/dL 125-200 6 [place] [facility] [place] [address] [phone] HDL Cholesterol 41 mg/dL > Or=40 Cholesterol/HDL Ratio 4.9 < Or=5.0 LDL Chol,Calculated 114 mg/dL <130 19 Triglycerides 221 mg/dL High <150 Non-HDL Cholesterol 157 mg/dL 20 Comprehensive Metabolic 12/23/2011 [facility] Glucose 94 mg/dL 76-[address] [place] [address] [phone] BUN 14 mg/dL 5-23 Creatinine 1.0 mg/dL [...] 44 U/L Low 50-136 LDL Cholesterol 12/23/2011 [facility] Cholesterol 148 mg/dL 120-[address] [place] [address] [phone] Triglycerides 70 mg/dL 16-231 HDL Cholesterol 39 mg/dL 29-83 LDL-Cholesterol 95 mg/dL 62-185 Laboratory test 12/23/2011 [facility] Bilirubin, Direct 0.1 mg/dL 0.1-0.[address] [place] [address] [phone] Thyroid Stim Hormone 1.14 uIU/mL 0.49-4.67 Free T4 0.90 ng/dL 0.71-1.85 CBS W/Automated 12/23/2011 [facility] White Blood 3.7 K/uL 3.4-10.[address] [place] [address] [phone] Red Blood Count 4.80 M/uL 4.20-5.80 Hemoglobin [...] % 33.0-73.0 Lymph % 33.8 % 17.0-56.0 Mckenzie % 9.9 % 0.0-10.0 Eo% 1.6 % 0.0-5.0 Bas% 0.5 % 0.1-1.0 Neut# 2.02 K/uL 1.8-7.0 Lymph # 1.26 K/uL 1.2-4.0 Mckenzie # 0.37 K/uL 0.0-0.6 Eos # 0.06 K/uL 0.0-0.5 Baso # 0.02 K/uL Low 0.1-0.2 Comp Metabolic Panel 10/29/2009 [facility] Sodium 142 mmol/L 135-[address] [place] [address] [phone] Potassium 4.3 mmol/L 3.5-5.3 Chloride 106 mmol/L [...] 2.1-3.7 A/G Ratio 1.9 1.0-2.1 Egfr Non-Afr. Samoan >60 ML/MIN/1.73M2 > Or=60 Egfr >60 ML/MIN/1.73M2 > Or=60 CBC W/ Diff & PLT 10/29/2009 [facility] WBC 3.8 thous/L 3.8-10.[address] [place] [address] [phone] RBC 4.69 mill/L 4.20-5.80 Hemoglobin 14.9 g/dL 13.2-17.1 Hematocrit 43.6 % 38.5-50.0 MCV 93.0 FL 80.0-100.0 MCH 31.7 pg 27.0-33.0 MCHC 34.1 g/dL 32.0-36.0 RDW 13.5 % 11.0-15.0 Platelet Count 235 thous/L 140-400 Platelet Sufficiency NORMAL Normal Neutrophils,Absolute 2190 cells/L [phone] Bands,Absolute DNR cells/L 0-750 Metamyelocytes,Absolute DNR cells/L [...] [facility] TSH,3RD 1.23 mIU/L 0.40-4.[address] [place] [address] [phone] T4,Free 1.1 ng/dL 0.8-1.8 Lipid Panel 10/29/2009 [facility] Cholesterol 172 mg/dL 125-[address] [place], [place] [address] [phone] HDL Cholesterol 43 mg/dL > Or=40 Triglycerides 75 mg/dL <150 Cholesterol/HDL Ratio 4.0 < Or=5.0 LDL Chol,Calculated 114 mg/dL <130 23 Laboratory test 10/29/2009 [facility] PSA,Total 0.3 NG/ML 0.0-4.0 [address] [place] [address] [phone] Laboratory test 2007 [facility] CK 80 U/L 26 -190 finding [address] [place] [address] [phone] Troponin-I 0.0 NG/ML 0.0-0.6 25 Liver Function 10/04/2007 [facility] Total Protein 6.4 g/dL 6.3-8.0 26 Tests [address] [place] [address] [phone] Albumin 4.0 g/dL 3.5-5.0 Bilirubin,Total 0.4 mg/dL 0.2-1.2 Bilirubin,Direct 0.1 mg/dL 0.1-0.4 Bilirubin,Indirect 0.3 mg/dL 0.0-0.9 Sgot/Ast 11 U/L Low 16-40 SGPT/Alt 34 U/L 30-65 Alkaline Phosphatase 53 U/L 50-136 LDL Cholesterol 10/04/2007 [facility] Cholesterol 153 mg/dL 120-200 Profile [address] [place] [address] [phone] Triglycerides 132 mg/dL 0-210 HDL Cholesterol 30 mg/dL Low 32-96 LDL-Cholesterol 97 mg/dL 62-185 Laboratory test finding 10/04/2007 [facility] Amylase 47 U/L 18-98 [address] [place] [address] [phone] Lipase 246 U/L 114-286 CK 105 U/L 26-190 Troponin-I 0.0 NG/ML 0.0-0.6 27 Vitamin B12 214 pg/mL 208-964 Folic Acid 16.4 ng/mL High 6.0-15.4 Thyroid Stim Hormone 1.58 uIU/mL 0.49-4.67 CBC 10/04/2007 [facility] White Blood Count 4.0 K/uL 3.4-10.5 [address] [place] [address] [phone] Red Blood Count 4.32 M/uL 4.20-5.80 Hemoglobin 13.1 gm/dL 12.8-17.0 Hematocrit 39.5 % 38.0-48.0 Mean Cell Volume 91.6 fL 80.0-96.0 Mean Corpuscular HGB 30.4 pg 27.0-33.0 Mean Corpuscular HGB Conc 33.2 g/dL 31.7-36.0 Platelet Count 263 K/uL 150-400 Red Cell Distri Width %CV 12.6 % 11.6-15.8 Mean Platelet Volume 6.7 fl 6.6-10.6 CBS W/Automated 10/04/2007 [facility] White Blood 5.8 K/uL 3.4-10.5 [address] [place] [address] [phone] Red Blood Count 4.59 M/uL 4.20-5.80 Hemoglobin 14.2 gm/dL 12.8-17.0 Hematocrit 41.7 % 38.0-48.0 Mean Cell Volume 90.8 fL 80.0-96.0 Mean Corpuscular HGB 31.1 pg 27.0-33.0 Mean Corpuscular HGB Conc 34.2 g/dL 31.7-36.0 Platelet Count 283 K/uL 150-400 Red Cell Distri Width %CV 12.5 % 11.6-15.8 Mean Platelet Volume 8.1 fl 6.6-10.6 Neut% 64.3 % 33.0-73.0 Lymph % 22.7 % 17.0-56.0 Mckenzie % 9.5 % 0.0-10.0 Eo% 0.8 % 0.0-5.0 Bas% 0.4 % 0.1-1.0 Calos% 2.3 % 0.0-4.0 Neut# 3.7 K/uL 1.8-7.0 Lymph # 1.3 K/uL 1.2-4.0 Mckenzie # 0.6 K/uL 0.0-0.6 Eos # 0.1 K/uL 0.0-0.5 Baso # 0.0 K/uL Low 0.1-0.2 Calos# 0.1 0.0-1.5 Laboratory test finding 10/04/2007 [facility] CK 146 U/L 26-[address] [place] [address] [phone] Troponin-I 0.0 NG/ML 0.0-0.6 29 Basic Metabolic 10/04/2007 [facility] Glucose 136 mg/ dL High 76-115 Panel [address] [place] [address] [phone] BUN 22 mg/dL 5-23 Creatinine 1.3 mg/dL 0.5-1.4 BUN/Creat 16.9 Sodium 140 mEq/L 136-145 Potassium 4.3 mEq/L 3.5-5.1 Chloride 106 mEq/L 98-107 Carbon Dioxide 28 mEq/L 21-32 Anion Gap 10 mEq/L 8-16 Calcium 9.0 mg/dL 8.5-10.1 Lipid Panel 04/29/2006 [facility] Cholesterol 198 mg/dL <200 30 [address] [place] [facility] [place] [address] [phone] HDL Cholesterol 46 mg/dL >40 31 Cholesterol/HDL Ratio 4.3 <5.0 LDL Chol,Calculated 126 mg/dL <130 32 Triglycerides 131 mg/dL <150 TSH & T4,Free 04/29/2006 [facility] TSH 0.71 mU/L 0.40-5.50 [address] [place] [address] [phone] T4,Free 1.2 ng/dL 0.8-1.8 Comp Metabolic Panel 04/29/2006 [facility] Sodium 144 mmol/L 135-146 [address] [place] [address] [phone] Potassium 5.0 mmol/L 3.5-5.3 Chloride 108 mmol/L [...] WBC 3.9 thous/L 3.8-10.8 [address] [place] [address] [phone] RBC 4.88 mill/L 4.20-5.80 Hemoglobin 14.9 g/dL 13.2-17.1 Hematocrit 44.4 % 38.5-50.0 MCV 91.0 FL 80.0-100.0 MCH 30.6 pg 27.0-33.0 MCHC 33.6 g/dL 32.0-36.0 RDW 14.6 % 11.0-15.0 Platelet Count 294 thous/L 140-400 Platelet Sufficiency NORMAL Neutrophils,Absolute 2350 cells/L [phone] Bands,Absolute DNR cells/L 0-750 Metamyelocytes,Absolute DNR cells/L [...] Velasco, 2015. Pediatric Reference Intervals, 7th Ed, [facility] Press, 2011. 3 Reference range for high altitude clients: 18-30 mmol/L 4 GLUCOSE REFERENCE RANGE BASED ON FASTING SPECIMEN. 5 The upper reference limit for Creatinine is approximately 13% higher for people identified as -Samoan. 6 Metal Casket Maker: [id number] SEE RESULT BELOW Name: JAREN RAINEY : [address]: Mena Leung MD Acct: [id number] Unit: [id number] AGE: 52 Location: [facility] Re04/19/18 SEX: M Status: DEP ER SPEC: [id number] MIKAYLA: 04/19/18-1405 [facility] DR: Janee Martinez NP REQ: [id number] RECD: 04/20/18-6 STATUS: DAVY JUNIOR DR: Bk Leung MD _ SOURCE: URINE SPDESC: ORDERED: Urine Culture COMMENTS: [id number] Procedure Result Reported Site Urine Culture Final 04/21/18- 1404 ML No Growth (<1,000 CFU/mL) * ML - Main Lab . END OF REPORT DEPARTMENT OF PATHOLOGY, [address] [place] [address] Donny Arias M.D. Director [facility] # [id number] 9 Metal Casket Maker: [id number] Metal Casket Maker: [id number] REFERENCE VALUE <=1.0 (Negative) Test Performed by: [place] [address] Data Entry Supervisor: Eamon Hardin II, M.D., Ph.D. 12 FASTING [...] INTERCHANGEABLY. THIS ASSAY WAS PERFORMED USING THE [employer] CHEMILUMINESCENCE METHOD. SERUM PSA LEVELS SHOULD NOT BE INTERPRETED ABSOLUTE EVIDENCE OF THE PRESENCE OR ABSENCE OF DISEASE. 25 0 - 0.6 NG/ML: NO EVIDENCE OF MYOCARDIAL INJURY 0.7 - 1.5 NG/ML: MILD ELEVATION, SUGGESTING POSSIBLE MYOCARDIAL INJURY > 1.5 NG/ML: CONSISTENT WITH MYOCARDIAL INJURY 26 Specimen: [id number] - TESTS: B12, FOL, TSH IS THE PATIENT FASTING? FASTING TEST: B12 QUERY: IS THE PATIENT FASTING? TEST: FOL QUERY: IS THE PATIENT FASTING? TEST: TSH 27 0 - 0.6 NG/ML: NO EVIDENCE OF MYOCARDIAL INJURY 0.7 - 1.5 NG/ML: MILD ELEVATION, SUGGESTING POSSIBLE MYOCARDIAL INJURY > 1.5 NG/ML: CONSISTENT WITH MYOCARDIAL INJURY 28 Specimen: [id number] - TESTS: C7, CPK, TROP SLI HEMOLYZED [...] FOR RACE, IF THE PATIENT'S RACE IS -TURKMEN, THE GFR ESTIMATE MUST BE MULTIPLIED BY A FACTOR OF 1.21. Procedures Date Code Description Status 04/12/2016 92773 Non-Invcorrotid/Comp /Bilat Study Completed 04/12/2016 08299 Echocardiography Completed 01/24/2015 32001 Spirometry Graphic Record/Max Voluntary Vent Completed 01/24/2015 46316 EKG-Tracing & Report Completed 01/23/2015 48303 Non-Invcorrotid/Comp /Bilat Study Completed 01/23/2015 48271 Echocardiography Completed 12/06/2013 49849 Spirometry Graphic Record/Max Voluntary Vent Completed 12/06/2013 74772 Holter Monitor Office Completed 12/06/2013 54410 EKG-Tracing & Report Completed 11/19/2013 85450 Non-Invcorrotid/Comp /Bilat Study Completed 11/19/2013 81575 Echocardiography Completed 12/23/2011 31416 EKG-Tracing & Report Completed 12/20/2011 25464 Echocardiography Completed 10/29/2009 66927 EKG-Tracing & Report Completed 10/29/2009 67808 Holter Monitor Office Completed 10/29/2009 01163 PFT Evaluation Completed 10/27/2009 48063 Echocardiography Completed 12/14/2006 90512 PFT Evaluation Completed 10/31/2006 11470 PFT Evaluation Completed 04/29/2006 49230 Spirometry Graphic Record/Max Voluntary Vent Completed 04/29/2006 93529 Non-Invcorrotid/Comp /Bilat Study Completed 04/29/2006 30880 Doppler Color Flow Velocity Completed 04/29/2006 59032 Doppler/ECHO Completed 04/29/2006 22034 ECHO-2D W/Wo M-Mode Completed 04/29/2006 74628 Holter Monitor Office Completed 04/29/2006 46974 EKG-Tracing & Report Completed 06/03/2004 56750 Doppler Color Flow Velocity Completed 06/03/2004 74438 Doppler/ECHO Completed 06/03/2004 34904 ECHO-2D W/Wo M-Mode Completed 05/22/2004 10196 EKG-Tracing & Report Completed Encounters Type Date Location Provider Dx Diagnosis Office Visit 03/22/2019 Main Office Bk Gonsalez [...] Office Visit 05/30/2018 11:30a Main Office Bk Gonaslez M54.2 Cervicalgia G25.0 Essential tremor G43.909 Migraine, [...] Office Visit 11/09/2012 11:00a Main Office Sybil Gonsalez, 466.0 Bronchitis Acute M.D. Office Visit 10/03/2012 [...] Bk Gonsalez 784.0 Headache Plan of Treatment 03/22/2019 - Chitra Gonsalez11.9 Hypertensive heart disease without heart failureNew Medication:Lisinopril 5 mg - 1 by mouth every dayComments:CONT. TO MONITOR BP, CONT. LOW SALT DIET [...]
[2019-05-01 09:09] VITALS: BP 136/85
--- NOTE | 2019-05-01 09:17 | UC ---
Respiratory Complaint HPI - HPI Summary HPI Summary: cough x 3 weeks cough is dry , harsh , constant worse with deep breathing , better with rest, keeps him up at night, no nasal congestion, no sore throat, no fever, no chills, no body aches no chest pain , no sob - History of Current Complaint Chief Complaint: UCRespiratory Stated Complaint: COUGH,THROAT TICKLE Time Seen by Provider: 05/01/19 09:04 Hx Obtained From: Patient Onset/Duration: Gradual Onset, Lasting Weeks - 3, Still Present Timing: Constant Severity Initially: Moderate Severity Currently: Moderate Pain Intensity: 0 Character: Cough: Nonproductive Aggravating Factors: Exertion, Deep Breaths Alleviating Factors: Nothing Associated Signs And Symptoms: Negative: Dyspnea, Fever, Chills, Pleuritic Chest Pain, Wheezing, Hemoptysis, Dizziness, Calf Pain, Calf Swelling, Edema, URI, Nasal Congestion, Hoarseness, Sinus Discomfort - Allergies/Home Medications Allergies/Adverse Reactions: Allergies Allergy/AdvReac Type Severity Reaction Status Date / Time azithromycin [From Zithromax] Allergy Intermediate Rash Verified 05/01/19 09:04 Penicillins Allergy Hives Verified 05/01/19 09:04 sulfamethoxazole Allergy Rash Verified 05/01/19 09:04 [From Bactrim] trimethoprim [From Bactrim] Allergy Rash Verified 05/01/19 09:04 PMH/Surg Hx/FS Hx/Imm Hx - Additional Past Medical History Additional PMH: TREMORS GI/ History: Ulcer - Surgical History Surgical History: None - Family History Known Family History: Positive: None, Diabetes, Other Negative: Cardiac Disease, Hypertension, Respiratory Disease - Social History Alcohol Use: Occasionally Substance Use Type: None Smoking Status (MU): Never Smoked Tobacco - Immunization History Most Recent Influenza Vaccination: Not the Season Vaccination Up to Date: Yes Review of Systems All Other Systems Reviewed And Are Negative: Yes Constitutional: Positive: Negative Skin: Positive: Negative Eyes: Positive: Negative ENT: Positive: Negative Respiratory: Positive: Cough Cardiovascular: Positive: Negative Is Patient Immunocompromised?: No Physical Exam Triage Information Reviewed: Yes Appearance: Well-Appearing, No Pain Distress, Well-Nourished Vital Signs: Initial Vital Signs Temp 96.7 F 05/01/19 09:05 Pulse 72 05/01/19 09:05 Resp 20 05/01/19 09:05 BP 136/85 07/16/19 09:05 Pulse Ox 95 05/01/19 09:05 Vital Signs Reviewed: Yes Eyes: Positive: Conjunctiva Clear ENT: Positive: Normal ENT inspection, Hearing grossly normal, Pharynx normal Neck: Positive: Supple, Nontender, No Lymphadenopathy Respiratory: Positive: Chest non-tender, Lungs clear, Normal breath sounds Cardiovascular: Positive: RRR, No Murmur, Pulses Normal Abdominal Exam: Normal Skin Exam: Normal Diagnostics - Radiology No standard instances Radiology Interpretation Completed By: Radiologist Summary of Radiographic Findings: chest xray report: IMPRESSION: #. No evidence for acute intrathoracic disease. Respiratory Course/Dx - Differential Dx/Diagnosis Provider Diagnosis: Acute bronchitis Discharge - Sign-Out/Discharge Documenting (check all that apply): Patient Departure All imaging exams completed and their final reports reviewed: Yes - Discharge Plan Condition: Stable Disposition: HOME Prescriptions: Codeine Phosphate/Guaifenesin [Cheratussin AC] 10 ml PO Q8H PRN #120 ml MDD 30 ml PRN Reason: Cough predniSONE TAB* [Deltasone 20 MG TAB*] 40 mg PO DAILY #10 tab Patient Education Materials: Acute Bronchitis (ED) Referrals: Bk Gonsalez MD [Primary Care Provider] - 7 Days - Billing Disposition and Condition Condition: STABLE Disposition: Home
== END 2019-05-01 09:49 | disposition home or self-care (01) ==
LOC: UCCORT 08:52
DX: J20.9 Acute bronchitis, unspecified (principal); Z88.1 Allergy status to other antibiotic agents; Z88.0 Allergy status to penicillin
CPT/HCPCS: 71046; 99212; G0463